=== PATIENT | female | born 1930 | race Caucasian/White ===

== ENCOUNTER → 2017-03-18 | Outpatient (CLI) | payer OTHER, BC ==
[~2017-03-18] MED LIST: ACET1TAB84 PO; ALBINS INH; ALBINS/ INH; ALBU1AER9 INH; ALEN1TAB21 PO; ASCO500T16 PO; ATOR-22 PO; CALC500C70 PO; CZR50 PO; DOXY-300 PO; EPP3/2 IM; FERRTAB PO; FEXO1TAB46 PO; FSMD/70 PO; FURO20TA PO; GUAI1TAB55 PO; HYDR-4717 PO; LEVO25TA PO; LEVOTHYROXINE PO; LNX125 PO; LOSA100T65 PO; LPR25 PO; LSX20 PO; LTMOPS OP; LVQ750 PO; METO25TA3 PO; METO50TA7 PO; MULTCAP36 PO; MULTTAB58 PO; OMEG10007 PO; POLY335025 PO; PRED10TA PO; PRLSR20 PO; SYN200 PO; TAMO20TA9 PO; TEMA15CA4 PO; TYLER650 PO; UMEC1AER INH; VNTHFA/IN INH; WARF-246 PO; WARF5TAB7 PO; WARF7.5T4 PO
--- NOTE | 2017-03-18 13:19 | MAMMOGRAPHY REPORT ---
BILATERAL DIGITAL DIAGNOSTIC MAMMOGRAM TOMOSYNTHESIS WITH CAD: 03/18/2017 CLINICAL HISTORY: 86-year-old woman with a personal history of left breast cancer status post breast conservation therapy. Also to recent benign ultrasound-guided core needle biopsies in the 12:00 an d 1:00 axes of the left breast. She presents for annual bilateral screening mammography. TECHNIQUE: Bilateral breast tomosynthesis in addition to standard 2D mammography was performed. Curr ent study was also evaluated with a Computer Aided Detection (CAD) system. COMPARISON: Comparison is made to exams dated: 09/17/2016 mammogram, 04/20/2016 ultrasound, 6 mammogram, 04/20/2016 ultrasound biopsy, 03/15/2016 mammogram, and 03/01/2015 mammogram - [facility]. BREAST COMPOSITION: The tissue of both breasts is heterogeneously dense, which may obscure small ma sses. FINDINGS: There are diffuse bilateral punctate microcalcifications in the breasts, most compatible w ith sclerosing adenosis. There are also mild to moderate vascular calcifications. There are 3 stab le biopsy marker clips in the 12:00 to 1:00 left breast, denoting prior benign biopsies. No new sueztte picious mass, architectural distortion or cluster of microcalcifications is seen bilaterally. IMPRESSION: ACR BI-RADS CATEGORY 2: BENIGN Stable mammographic appearance of the breasts including postsurgical and post biopsy changes within the left breast. There is no mammographic evidence of malignancy. A 1 year screening mammogram is r ecommended. The patient has been verbally notified of the results. Approximately 10% of breast cancers are not detected with mammography. A negative mammographic repor t should not delay biopsy if a clinically suggestive mass is present. Latonya Carey M.D. ay/:03/18/2017 12:41:04 Firearms Inspector: Yvrose DORMAN(Anne)(M), [facility] letter sent: Normal 1/2 BI-RADS Code: ACR BI-RADS Category 2: Benign
== END | disposition home or self-care (01) ==
LOC: C.MAMM 10:13
PROVIDERS: ATTEND Surgery
DX: Z08 Encounter for follow-up examination after completed treatment for malignant neoplasm (principal); Z85.3 Personal history of malignant neoplasm of breast

== ENCOUNTER → 2017-04-01 | Outpatient (CLI) | payer OTHER, BC ==
--- NOTE | 2017-04-01 11:59 | DIAGNOSTIC IMAGING REPORT ---
CHEST CT WITHOUT CONTRAST CT DOSE: 212.07 mGy.cm HISTORY: R91.8 Right lower lobe lung mass in March [id number] TECHNIQUE: Multiaxial CT images of the chest were performed without contrast. COMPARISON: Chest CT 03/26/2016. FINDINGS: Continued increase in size in the spiculated mass within the right lower lobe which measures 6.6 x 3.7 cm. This previous measured 5.7 x 3.2 cm. This contains a few small central areas of cavitation. There are few extensions to the pleura. No change within the impacted anterior segmental bronchi the right lower lobe. No pneumothorax. No pleural effusions. Moderate emphysema. There is also 12 mm mixed solid and groundglass nodule within the right lung apex on image 30. Small patchy groundglass density within the left upper lobe on image 60 which measures 1 cm. Stable 7 mm groundglass nodule within the left upper lobe on image 79. Stable metallic density within the right upper lobe. No suspicious lytic or blastic osseous lesions. Poststernotomy changes. Hepatic steatosis. The spleen and adrenal glands are unremarkable. Multiple hypodense lesions within the kidneys are again noted. 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 No mediastinal or hilar lymphadenopathy. There is an aortic valve prosthesis. The heart remains mildly enlarged. IMPRESSION: 1. Continued increase in size in the spiculated mass within the right lower lobe which measures 6.6 x 3.7 cm. This is consistent with a primary bronchogenic malignancy until proven otherwise. 2. No change in the 12 mm mixed solid and groundglass nodule within the right lung apex. This is also consistent with a primary bronchogenic malignancy. 3. Additional small nonspecific groundglass densities within the lungs as described above. These require follow-up to ensure ability. 4. Emphysema. 5. Hepatic steatosis. Electronically signed by: Tyler Cheatham M.D. 04/01/2017 11:58 AM Dictated Date/Time: 04/01/2017 11:45 AM
== END | disposition home or self-care (01) ==
LOC: C.CTS 10:40
PROVIDERS: ATTEND Internal Medicine Pulmonary Disease
DX: R91.8 Other nonspecific abnormal finding of lung field (principal)

== ENCOUNTER 2017-05-24 11:11 | Inpatient (IN) | payer OTHER, BC ==
[~2017-05-24] VITALS: Ht 167.6 cm; Wt 68.0 kg
[2017-05-24] VITALS (7 sets, daily range): BP systolic 107–156; BP diastolic 53–85; PULSE 69–80; TEMP 37.3–37.7; O2SAT 92–94; Ht 167.6 cm; Wt 68.0 kg
[~2017-05-24 11:11] MED LIST changes: -ALBINS/ INH; -ALEN1TAB21 PO; -CZR50 PO; -DOXY-300 PO; -FURO20TA PO; -LEVO25TA PO; -LPR25 PO; -LTMOPS OP; -METO50TA7 PO; -PRED10TA PO; -SYN200 PO; +TAMO20TA47 PO; -TAMO20TA9 PO; -VNTHFA/IN INH; -WARF-246 PO; -WARF7.5T4 PO
[2017-05-24] MEDS ORDERED: SODIUM CHLORIDE 0.9% 1000ML 1,000 ML IV STA (12:27)
[2017-05-24] MEDS ORDERED: ONDANSETRON INJ 2 MG/ML 2 ML VIAL IV STA (12:27)
[2017-05-24] MEDS ORDERED: FENTANYL CITRATE INJ 50 MCG/1 ML 2 ML VIAL IV STA (12:27)
[2017-05-24 12:36] LABS: BASO % 0.4 %; BASO ABS # 0.03 K/uL (0-0.2); COMPLETE YES; EOS % 2.6 %; HEMATOCRIT 43.1 % (37-47); IG% 0.1 %; LYMPH % 13.4 %; LYMPH ABS # 0.99 K/uL (1.2-3.4); MEAN CORPUSCULAR HEMOGLOBIN 33.4 pg (25-34); MEAN CORPUSCULAR HGB CONC 34.1 g/dl (32-36); MEAN PLATELET VOLUME 10.7 fL (7.4-10.4); MONO % 9.1 %; NEUT % 74.4 %; PLATELET COUNT 157 K/uL (130-400); WHITE BLOOD COUNT 7.38 K/uL (4.8-10.8)
--- NOTE | 2017-05-24 12:43 | EMERGENCY ROOM VISIT NOTE ---
History Report prepared by Lon: Agatha Castro Under the Supervision of: Dr. Jyotsna Jimenez M.D. First contact with patient: 12:05 Chief Complaint: NEURO SYMPTOMS Stated Complaint: HEADACHE, EVENT, NOT SEEING WELL Nursing Triage Summary: PT stated that she went to bed with a headache last evening. The headache kept the pt awake throught out the night. When the pt got out of bed she had a hard time seeing. Pt states that the pain is behind her right eye. Pt does have a history of macular degeneration which she is treated for. Pt has had a previous stroke and Afib. Pts blood pressure was elevated this morning which is not normal for her. History of Present Illness The patient is a 86 year old female who presents to the Emergency Room with complaints of a resolved episode of disorientation occurring this morning. The patient went to bed last night with a severe frontal headache. This morning, the headache moved to behind her right eye. When she woke up this morning, she was unable to see and orient herself. She was unable to identify how much time had passed, the time of the onset of her episode, and the duration of the episode. The patient hit her life alert button. The patient's family member was called around 8:30 am this morning. Her blood pressure this morning was 163/91 with a heart rate of 80 beats per minute. When her blood pressure was checked again prior to arrival, it was elevated. The patient currently continues to complain of a mild headache behind her right eye but denies any disorientation. She reports the severity of her headache has reduced. She has an appointment with her swager operator scheduled for May 27. She denies any history of similar symptoms. She denies any recent head trauma/injuries, vomiting, or any other complaints. She has a history of stroke, A-Fib, and valve replacement. She is currently on Coumadin. Source of History: patient Onset: this morning Position: other (global) Quality: other (episode of disorientation) Timing: resolved Associated Symptoms: + headache, No vomiting Review of Systems See HPI for pertinent positives & negatives. A total of 10 systems reviewed and were otherwise negative. 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) (4) Breast cancer (5) CVA (cerebral vascular accident) (6) Diastolic CHF (7) Dyslipidemia (8) Hypothyroidism (9) Lung mass (10) Macular degeneration (11) Osteoarthritis (12) Restrictive airway disease (13) TIA (transient ischemic attack) Surgical Problems: (1) H/O spinal fusion (2) Status post aortic valve replacement with prosthetic valve (3) Status post appendectomy (4) Status post cataract extraction (5) Status post partial mastectomy Family History FH: cancer FH: heart disease Hypertension Social History Smoking Status: Former Smoker Alcohol Use: none Drug Use: none Marital Status: single, Housing Status: lives alone Occupation Status: retired Current/Historical Medications Scheduled Albuterol Sulf (Proventil 0.083% 2.5MG/3ML), 2.5 MG INH BID Alendronate Sodium (Alendronate Sodium), 1 TAB PO WK Ascorbic Acid (Ascorbic Acid), 500 MG PO QAM Atorvastatin (Lipitor), 30 MG PO QPM Calcium/Vitamin D (Os-Dima 500 Plus D), 2 TAB PO DAILYBL Digoxin (Digoxin), 1 TAB PO DAILY Doxycycline (Monohydrate) (Doxycycline), 1 CAP PO BID Epinephrine (Epipen), 0.3 MG IM UD Ferrous Fumarate-Folic Acid (Hematinic/Folic Acid), 1 TAB PO DAILY Fexofenadine Hcl (Allison), 180 MG PO QAM Fish Oil ([place]-3), 1 CAP PO BID@1200,2100 Furosemide (Lasix), 20 MG PO DAILY Hydralazine Hcl (Apresoline), 50 MG PO TID Levothyroxine Sodium (Synthroid), 25 MCG PO DAILYBB Levothyroxine Sodium (Synthroid), 1 TAB PO DAILYBB Losartan Potassium (Cozaar), 100 MG PO QAM Loteprednol Etabonate (Lotemax), 1 DROPS OP BID Metoprolol Succ (Toprol Xl) (Toprol-Xl), 50 MG PO BID Multiple Vitamin (Multivitamin), 1 TAB PO QAM Multiple Vitamins W/ Minerals (Preservision/Lutein), 1 CAP PO DAILY Omeprazole (Prilosec), 20 MG PO QAM Prednisone Tab (Prednisone), 10 MG PO UD Umeclidinium-Vilanterol (Anoro Ellipta 62.5-25 Mcg/INH), 1 PUFF INH QAM Warfarin Sod (Jantoven), 5 MG PO UD Warfarin Sod (Jantoven), 7.5 MG PO UD Scheduled PRN Acetaminophen (Tylenol Arthritis Ext Rel), 1,300 MG PO Q8 PRN for Pain Albuterol Hfa (Ventolin Hfa), 2 PUFFS INH Q6H PRN for SOB/Wheezing Guaifenesin Ext Rel (Mucinex Ext Rel), 600 MG PO Q4 PRN for Cough Polyethylene Glycol 3350 (Miralax), 1 TBS PO DAILY PRN for Severe Constipation Temazepam (Restoril), 15-30 MG PO HS PRN for Insomnia Allergies Coded Allergies: BEE STING (Verified Allergy, Intermediate, rash and site/generalized swelling, 05/24/17) Iodinated Contrast Media (Verified Allergy, Intermediate, increased blood pressure, 05/24/17) Meperidine (Verified Allergy, Intermediate, Hallucinations, 05/24/17) Adhesives (Verified Allergy, Mild, RASH, 05/24/17) Amlodipine (Verified Allergy, Mild, unknown, 05/24/17) Azithromycin (Verified Allergy, Mild, counteraction with breathing medication, 11/10/16) Cephalosporins (Verified Allergy, Mild, unknown, 05/24/17) Fluvastatin (Verified Allergy, Mild, severe myalgias, 05/24/17) Simvastatin (Verified Allergy, Mild, Muscle Aches, 05/24/17) Tetanus Toxoid (Verified Allergy, Mild, generalized swelling and rash, ) Cephalexin (Verified Allergy, Unknown, unknown, 05/24/17) Penicillins (Verified Allergy, Unknown, RASH WITH WELTS, 05/24/17) Sulfa Drugs (Verified Allergy, Unknown, RASH, 05/24/17) Zolpidem (Verified Adverse Reaction, Severe, Severe confusion and disorientation, 05/24/17) Prednisone (Unverified Adverse Reaction, Unknown, sensitive side effects - try not to use, 05/24/17) Physical Exam Vital Signs Date Time Temp Pulse Resp B/P (MAP) Pulse Ox O2 Delivery O2 Flow Rate FiO2 05/24/17 15:44 83 20 153/75 94 Room Air 05/24/17 13:42 77 18 172/84 94 Room Air 05/24/17 12:21 84 05/24/17 11:16 36.9 72 22 184/84 94 Room Air Physical Exam Vital signs reviewed. General: Elderly well-appearing, neurologically intact, in no significant distress. HEENT: No scleral icterus, PERRLA, neck supple. Atraumatic. No meningeal signs. Cardiovascular: Regular rate and rhythm. Positive systolic ejection murmur. Pulmonary: Clear to auscultation bilaterally, normal work of breathing. Abdomen: Soft, nontender, nondistended, positive bowel sounds. Musculoskeletal: Atraumatic, no peripheral edema. Neurologic: Patient awake alert and oriented x 3, full strength in all 4 extremities. Cranial nerves 2 through 12 grossly intact. Skin: Warm, dry, no rash Medical Decision & Procedures ER Provider Diagnostic Interpretation: X-ray results as stated below per interpretation by me and the radiologist: CHEST ONE VIEW PORTABLE CLINICAL HISTORY: Altered mental status. Atrial fibrillation. COMPARISON STUDY: Chest CT April 01, 2017. FINDINGS: No pneumothorax or pleural effusion is present. A right lower lobe mass-like opacity is again noted. This is better depicted on prior chest CT. There are fiducial markers within the right upper lobe. Mild emphysema is noted. There is no evidence of pulmonary edema. There are median sternotomy wires. Cardiac size is at the upper limits of normal. IMPRESSION: 1. No acute cardiopulmonary findings. 2. Redemonstration of the right lower lobe mass-like opacity which is better depicted on prior chest CT and highly suggestive of primary lung malignancy. Electronically signed by: Laureano Gan M.D. 05/24/2017 12:57 PM Dictated Date/Time: 05/24/2017 12:[address] results as stated below per my review and radiologist interpretation: HEAD CT NONCONTRAST CT DOSE: 669.45 mGycm HISTORY: Headache. TECHNIQUE: Multiaxial CT images of the head were performed without the use of intravenous contrast. Automated exposure control was utilized for this study. Comparison: Head CT 11/10/2016. Findings: The paranasal sinuses and mastoid air cells are clear. The calvarium and skull base are intact. Small infarct within the right cerebellar hemisphere, unchanged. There is a new 5.9 x 4.2 cm hypodense area within the right occipital lobe. This is consistent with an acute right REFRIGERATOR ROOM CLERK territory infarct. Mild microvascular ischemic changes are again noted. There is no mass, hematoma, midline shift. Impression: Acute right REFRIGERATOR ROOM CLERK territory infarct. Electronically signed by: Tyler Cheatham M.D. 05/24/2017 1:18 PM Dictated Date/Time: 05/24/2017 1:14 PM Laboratory Results 05/24/17 12:11 Red Blood Count 4.40, Mean Corpuscular Volume 98.0, Mean Corpuscular Hemoglobin 33.4, Mean Corpuscular Hemoglobin Concent 34.1, Mean Platelet Volume 10.7, Neutrophils (%) (Auto) 74.4, Lymphocytes (%) (Auto) 13.4, Monocytes (%) (Auto) 9.1, Eosinophils (%) (Auto) 2.6, Basophils (%) (Auto) 0.4, Neutrophils # (Auto) 5.49, Lymphocytes # (Auto) 0.99, Monocytes # (Auto) 0.67, Eosinophils # (Auto) 0.19, Basophils # (Auto) 0.03 05/24/17 12:11 Test 05/24/17 12:11 White Blood Count 7.38 K/uL (4.8-10.8) Red Blood Count 4.40 M/uL (4.2-5.4) Hemoglobin 14.7 g/dL (12.0-16.0) Hematocrit 43.1 % (37-47) Mean Corpuscular Volume 98.0 fL (80-100) Mean Corpuscular Hemoglobin 33.4 pg (25-34) Mean Corpuscular Hemoglobin Concent 34.1 g/dl (32-36) Platelet Count 157 K/uL (130-400) Mean Platelet Volume 10.7 fL (7.4-10.4) Neutrophils (%) (Auto) 74.4 % Lymphocytes (%) (Auto) 13.4 % Monocytes (%) (Auto) 9.1 % Eosinophils (%) (Auto) 2.6 % Basophils (%) (Auto) 0.4 % Neutrophils # (Auto) 5.49 K/uL (1.4-6.5) Lymphocytes # (Auto) 0.99 K/uL (1.2-3.4) Monocytes # (Auto) 0.67 K/uL (0.11-0.59) Eosinophils # (Auto) 0.19 K/uL (0-0.5) Basophils # (Auto) 0.03 K/uL (0-0.2) RDW Standard Deviation 43.9 fL (36.4-46.3) RDW Coefficient of Variation 12.3 % (11.5-14.5) Immature Granulocyte % (Auto) 0.1 % Immature Granulocyte # (Auto) 0.01 K/uL (0.00-0.02) Prothrombin Time 24.1 SECONDS (9.0-12.0) Prothromb Time International Ratio 2.2 (0.9-1.1) Activated Partial Thromboplast Time 36.6 SECONDS (21.0-31.0) Partial Thromboplastin Ratio 1.4 Anion Gap 6.0 mmol/L (3-11) Est Creatinine Clear Calc Drug Dose 50.4 ml/min Estimated GFR () 83.7 Estimated GFR (Non- 72.2 BUN/Creatinine Ratio 28.7 (10-20) Calcium Level 10.1 mg/dl (8.5-10.1) Total Bilirubin 0.5 mg/dl (0.2-1) Direct Bilirubin 0.1 mg/dl (0-0.2) Aspartate Amino Transf (AST/SGOT) 39 U/L (15-37) Alanine Aminotransferase (ALT/SGPT) 43 U/L (12-78) Alkaline Phosphatase 84 U/L (45-117) Total Creatine Kinase 44 U/L (26-192) Creatine Kinase MB 1.1 ng/ml (0.5-3.6) Creatine Kinase MB Ratio 2.5 (0-3.0) Total Protein 7.0 gm/dl (6.4-8.2) Albumin 3.7 gm/dl (3.4-5.0) Laboratory results per my review. Medications Administered Medications (Trade) Dose Ordered Sig/Laura Route Start Time Stop Time Status Last Admin Dose Admin Sodium Chloride 1,000 ml @ 125 mls/hr Q8H STAT IV 05/24/17 12:27 05/24/17 20:26 05/24/17 12:45 125 MLS/HR Ondansetron HCl (Zofran Inj) 4 mg NOW STAT IV 05/24/17 12:27 05/24/17 12:30 DC 05/24/17 12:45 4 MG Lorazepam (Ativan Inj) 0.5 mg NOW ONCE IV 05/24/17 16:00 05/24/17 16:01 DC 05/24/17 16:36 0.5 MG ECG Indication: other (Episode of disorientation; headache) Rate (beats per minute): 103 Rhythm: atrial fibrillation Findings: nonspecific-ST abn, T-wave inversion (Lateral) ED Course 1205: Past medical records reviewed. The patient was evaluated in room C10. A complete history and physical examination was performed. 1227: Zofran Inj 4 mg IV, Fentanyl Inj 50 mcg IV, Sodium Chloride 1000 ml @ 125 mls/hr IV 1401: I discussed the patient's case with RHETT Copeland with [facility]. 1426: Upon reevaluation, the patient is resting comfortably. I discussed laboratory and radiographic results with her. She verbalized agreement of the treatment plan. The patient will be evaluated for further management and care. Medical Decision Medication Reconciliation: I attest that I have personally reviewed the patient' s current medication list. Blood Pressure Screening: Patient was found to have a slightly elevated blood pressure due to circumstances. I do not believe that the patient requires hypertension monitoring. Differential diagnosis: Intracranial hemorrhage, intracranial mass, migraine headache, tension headache , sinusitis, meningitis This patient was evaluated and appeared to be in no significant distress. IV access was obtained and laboratory work was drawn. The patient was placed on the textbook associate and found to be in an atrial fibrillation with nonspecific ST change. Patient's laboratory work reveals an INR of 2.2. She has had a valve replacement previously. Chest x-ray was obtained and reveals a mass which has been visualized previously. There is concern over malignancy. CT scan of the head was performed and reveals a right REFRIGERATOR ROOM CLERK territory infarct. I suspect the onset of this stroke was last evening when her headache began. This does appear to be acute. Patient seems to be fairly normal on neurologic exam at this time. She complains of a low-grade headache and has declined any pain medication at this time. IV fluids given initiated and the patient will be evaluated by the hospitalist service for further management. Consults Time Called: [id number] Consulting Physician: RHETT Copeland with [facility] Returned Call: [phone] I discussed the patient's case with RHETT Copeland with [facility]. Impression Primary Impression: Acute ischemic right posterior cerebral artery (REFRIGERATOR ROOM CLERK) stroke Scribe Attestation The scribe's documentation has been prepared under my direction and personally reviewed by me in its entirety. I confirm that the note above accurately reflects all work, treatment, procedures, and medical decision making performed by me. Departure Information Dispostion Being Evaluated By Hospitalist Referrals Triston Adame D.O. (PCP) Patient Instructions My [facility]
[2017-05-24 12:44] LABS: BUN/CREATININE RATIO 28.7 (10-20); CALCIUM 10.1 mg/dl (8.5-10.1); CREATININE 0.75 mg/dl (0.60-1.20); POTASSIUM 3.9 mmol/L (3.5-5.1)
[2017-05-24 12:46] LABS: INR 2.2 (0.9-1.1); PARTIAL THROMBOPLASTIN RATIO 1.4; PROTHROMBIN TIME (PATIENT) 24.1 SECONDS (9.0-12.0)
[2017-05-24 12:49] LABS: CKMB/CK RATIO 2.5 (0-3.0)
--- NOTE | 2017-05-24 12:58 | DIAGNOSTIC IMAGING REPORT ---
CHEST ONE VIEW PORTABLE CLINICAL HISTORY: Altered mental status. Atrial fibrillation. COMPARISON STUDY: Chest CT April 01, 2017. FINDINGS: No pneumothorax or pleural effusion is present. A right lower lobe mass-like opacity is again noted. This is better depicted on prior chest CT. There are fiducial markers within the right upper lobe. Mild emphysema is noted. There is no evidence of pulmonary edema. There are median sternotomy wires. Cardiac size is at the upper limits of normal. IMPRESSION: 1. No acute cardiopulmonary findings. 2. Redemonstration of the right lower lobe mass-like opacity which is better depicted on prior chest CT and highly suggestive of primary lung malignancy. Electronically signed by: Laureano Gan M.D. 05/24/2017 12:57 PM Dictated Date/Time: 05/24/2017 12:54 PM
--- NOTE | 2017-05-24 13:19 | DIAGNOSTIC IMAGING REPORT ---
HEAD CT NONCONTRAST CT DOSE: 669.45 mGycm HISTORY: Headache. TECHNIQUE: Multiaxial CT images of the head were performed without the use of intravenous contrast. Automated exposure control was utilized for this study. Comparison: Head CT 11/10/2016. Findings: The paranasal sinuses and mastoid air cells are clear. The calvarium and skull base are intact. Small infarct within the right cerebellar hemisphere, unchanged. There is a new 5.9 x 4.2 cm hypodense area within the right occipital lobe. This is consistent with an acute right INFORMATION ARCHITECT territory infarct. Mild microvascular ischemic changes are again noted. There is no mass, hematoma, midline shift. Impression: Acute right INFORMATION ARCHITECT territory infarct. Electronically signed by: Tyler Cheatham M.D. 05/24/2017 1:18 PM Dictated Date/Time: 05/24/2017 1:14 PM
[2017-05-24] MEDS ORDERED: LTMOPS OP (14:01)
[2017-05-24] MEDS ORDERED: LEVO25TA PO (14:01)
[2017-05-24] MEDS ORDERED: VNTHFA/IN INH (14:01)
[2017-05-24] MEDS ORDERED: DOXY-300 PO (14:01)
[2017-05-24] MEDS ORDERED: ALBINS/ INH (14:01)
[2017-05-24] MEDS ORDERED: SYN200 PO (14:01)
[2017-05-24] MEDS ORDERED: PRED10TA PO (14:01)
[2017-05-24] MEDS ORDERED: FURO20TA PO (14:01)
[2017-05-24] MEDS ORDERED: WARF-246 PO (14:01)
[2017-05-24] MEDS ORDERED: ALEN1TAB21 PO (14:01)
[2017-05-24] MEDS ORDERED: ONDANSETRON INJ 2 MG/ML 2 ML VIAL IV PRN (14:45)
[2017-05-24] MEDS ORDERED: PHARMACIST DISCHARGE MED REC CONSULT PRN (14:45)
[2017-05-24] MEDS ORDERED: WARF7.5T4 PO (15:07)
[2017-05-24] MEDS ORDERED: WARF5TAB7 PO (15:07)
[2017-05-24] MEDS ORDERED: POLYETHYLENE (MIRALAX) 17 GM PACK PO PRN (15:15)
[2017-05-24] MEDS ORDERED: LORAZEPAM 2 MG/ML 1 ML VIAL IV ONE (16:00)
[2017-05-24] MEDS: [UNRECOGNIZED DRUG - OTHER] SCH ×2 (16:00→23:35)
--- NOTE | 2017-05-24 16:43 | History and Physical ---
History & Physical Date & Time of Service: May 24, 2017 ~ 14:30 Chief Complaint: Headache, Vision Problems Primary Care Physician: Triston Adame D.O. History of Present Illness 86 year old female who presents to the ER with reports of headache and vision problems. Patient reports she went to bed last night with a frontal headache. When she woke up this morning the headache was located around her right eye. She reports the headache at it's worst was #7/10 and it currently improving. She also reports visual problems. She reports she "just couldn't see". Patient denies double vision but is unable to describe her visual disturbances further. She reports her vision has almost returned to normal. She notes poor vision at baseline due to macular degeneration. Patient denies any unilateral numbness, tingling, or weakness. She had difficulty walking but it was due to the vision disturbance. She denies lightheadedness, dizziness, or syncope. No chest pain or shortness of breath. Denies recent illnesses, fever, or chills. No abdominal pain, nausea, vomiting, or diarrhea. She denies urinary symptoms. 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 INR is 2.2. BP is somewhat hypertensive, other vitals stable. Labs unremarkable. 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 (4) Breast cancer Status: Chronic (5) CVA (cerebral vascular accident) Status: Chronic (6) Diastolic CHF Status: Chronic (7) Dyslipidemia Status: Chronic (8) Hypothyroidism Status: Chronic (9) Lung mass Permanent Comment: RLL, patient has declined further work up/treatment Status: Chronic (10) Macular degeneration Status: Chronic (11) Osteoarthritis Status: Chronic (12) Restrictive airway disease Status: Chronic (13) TIA (transient ischemic attack) Status: Chronic Surgical Problems: (1) H/O spinal fusion Status: Chronic (2) Status post aortic valve replacement with prosthetic valve Status: Chronic (3) Status post appendectomy Status: Chronic (4) Status post cataract extraction Status: Chronic (5) Status post partial mastectomy Status: Chronic Family History non contributory due to patient's age Social History Smoking Status: Former Smoker Alcohol Use: none Housing status: lives alone Immunizations History of Influenza Vaccine: Yes Influenza Vaccine Date: Aug 27, 2016 History of Pneumococcal: Yes Pneumococcal Date: May 02, 2015 Multi-Drug Resistant Organisms History of MDRO: No Allergies Coded Allergies: BEE STING (Verified Allergy, Intermediate, rash and site/generalized swelling, 05/24/17) Adhesives (Verified Allergy, Mild, RASH, 05/24/17) Amlodipine (Verified Allergy, Mild, unknown, 05/24/17) Azithromycin (Verified Allergy, Mild, counteraction with breathing medication, 11/10/16) Cephalosporins (Verified Allergy, Mild, unknown, 05/24/17) Sulfa Antibiotics (Verified Allergy, Mild, RASH, 05/24/17) Tetanus Toxoid (Verified Allergy, Mild, generalized swelling and rash, ) Cephalexin (Verified Allergy, Unknown, unknown, 05/24/17) Penicillins (Verified Allergy, Unknown, RASH WITH WELTS, 05/24/17) Fluvastatin (Verified Adverse Reaction, Intermediate, severe myalgias, ) Meperidine (Verified Adverse Reaction, Intermediate, Hallucinations, ) Zolpidem (Verified Adverse Reaction, Intermediate, Severe confusion and disorientation, 05/24/17) Simvastatin (Verified Adverse Reaction, Mild, Muscle Aches, 05/24/17) Iodinated Diagnostic Agents (Verified Adverse Reaction, Unknown, INCREASED BLOOD PRESSURE, 05/24/17) Prednisone (Verified Adverse Reaction, Unknown, sensitive side effects - try not to use, 05/24/17) Home Medications Scheduled Albuterol Sulf (Proventil 0.083% 2.5MG/3ML), 2.5 MG INH BID Alendronate Sodium (Alendronate Sodium), 1 TAB PO WK Ascorbic Acid (Ascorbic Acid), 500 MG PO QAM Atorvastatin (Lipitor), 30 MG PO QPM Calcium/Vitamin D (Os-Dima 500 Plus D), 2 TAB PO DAILYBL Digoxin (Digoxin), 1 TAB PO DAILY Doxycycline (Monohydrate) (Doxycycline), 1 CAP PO BID Epinephrine (Epipen), 0.3 MG IM UD Ferrous Fumarate-Folic Acid (Hematinic/Folic Acid), 1 TAB PO DAILY Fexofenadine Hcl (Allison), 180 MG PO QAM Fish Oil ([place]-3), 1 CAP PO BID@1200,2100 Furosemide (Lasix), 20 MG PO DAILY Hydralazine Hcl (Apresoline), 50 MG PO TID Levothyroxine Sodium (Synthroid), 25 MCG PO DAILYBB Levothyroxine Sodium (Synthroid), 1 TAB PO DAILYBB Losartan Potassium (Cozaar), 100 MG PO QAM Loteprednol Etabonate (Lotemax), 1 DROPS OP BID Metoprolol Succ (Toprol Xl) (Toprol-Xl), 50 MG PO BID Multiple Vitamin (Multivitamin), 1 TAB PO QAM Multiple Vitamins W/ Minerals (Preservision/Lutein), 1 CAP PO DAILY Omeprazole (Prilosec), 20 MG PO QAM Prednisone Tab (Prednisone), 10 MG PO UD Umeclidinium-Vilanterol (Anoro Ellipta 62.5-25 Mcg/INH), 1 PUFF INH QAM Warfarin Sod (Jantoven), 5 MG PO UD Warfarin Sod (Jantoven), 7.5 MG PO UD Scheduled PRN Acetaminophen (Tylenol Arthritis Ext Rel), 1,300 MG PO Q8 PRN for Pain Albuterol Hfa (Ventolin Hfa), 2 PUFFS INH Q6H PRN for SOB/Wheezing Guaifenesin Ext Rel (Mucinex Ext Rel), 600 MG PO Q4 PRN for Cough Polyethylene Glycol 3350 (Miralax), 1 TBS PO DAILY PRN for Severe Constipation Temazepam (Restoril), 15-30 MG PO HS PRN for Insomnia Review of Systems ROS per HPI, all other systems reviewed and negative Physical Exam Vital Signs Date Time Temp Pulse Resp B/P (MAP) Pulse Ox O2 Delivery O2 Flow Rate FiO2 05/24/17 15:44 83 20 153/75 94 Room Air 05/24/17 13:42 77 18 172/84 94 Room Air 05/24/17 12:21 84 05/24/17 11:16 36.9 72 22 184/84 94 Room Air General Appearance: no apparent distress Head: normocephalic Eyes: PERRL, + pertinent finding (decreased left peripheral vision ) ENT: hearing grossly normal Neck: supple, no JVD Respiratory/Chest: no respiratory distress, + pertinent finding (scattered faint coarse breath sounds) Cardiovascular: no edema, + irregularly irregular (rate controlled) Abdomen/GI: normal bowel sounds, non tender, soft Extremities/Musculoskelatal: normal inspection, no calf tenderness Neurologic/Psych: no motor/sensory deficits, alert, normal mood/affect, oriented x 3 Skin: normal color, warm/dry Diagnostics Laboratory Results Results Past 24 Hours Test 05/24/17 12:11 Range/Units White Blood Count 7.38 4.8-10.8 K/uL Red Blood Count 4.40 4.2-5.4 M/uL Hemoglobin 14.7 12.0-16.0 g/dL Hematocrit 43.1 37-47 % Mean Corpuscular Volume 98.0 80-100 fL Mean Corpuscular Hemoglobin 33.4 25-34 pg Mean Corpuscular Hemoglobin Concent 34.1 32-36 g/dl Platelet Count 157 130-400 K/uL Mean Platelet Volume 10.7 7.4-10.4 fL Neutrophils (%) (Auto) 74.4 % Lymphocytes (%) (Auto) 13.4 % Monocytes (%) (Auto) 9.1 % Eosinophils (%) (Auto) 2.6 % Basophils (%) (Auto) 0.4 % Neutrophils # (Auto) 5.49 1.4-6.5 K/uL Lymphocytes # (Auto) 0.99 1.2-3.4 K/uL Monocytes # (Auto) 0.67 0.11-0.59 K/uL Eosinophils # (Auto) 0.19 0-0.5 K/uL Basophils # (Auto) 0.03 0-0.2 K/uL RDW Standard Deviation 43.9 36.4-46.3 fL RDW Coefficient of Variation 12.3 11.5-14.5 % Immature Granulocyte % (Auto) 0.1 % Immature Granulocyte # (Auto) 0.01 0.00-0.02 K/uL Prothrombin Time 24.1 9.0-12.0 SECONDS Prothromb Time International Ratio 2.2 0.9-1.1 Activated Partial Thromboplast Time 36.6 21.0-31.0 SECONDS Partial Thromboplastin Ratio 1.4 Sodium Level 139 136-145 mmol/L Potassium Level 3.9 3.5-5.1 mmol/L Chloride Level 105 98-107 mmol/L Carbon Dioxide Level 28 21-32 mmol/L Anion Gap 6.0 3-11 mmol/L Blood Urea Nitrogen 22 7-18 mg/dl Creatinine 0.75 0.60-1.20 mg/dl Est Creatinine Clear Calc Drug Dose 50.4 ml/min Estimated GFR () 83.7 Estimated GFR (Non- 72.2 BUN/Creatinine Ratio 28.7 10-20 Random Glucose 96 70-99 mg/dl Calcium Level 10.1 8.5-10.1 mg/dl Total Bilirubin 0.5 0.2-1 mg/dl Direct Bilirubin 0.1 0-0.2 mg/dl Aspartate Amino Transf (AST/SGOT) 39 15-37 U/L Alanine Aminotransferase (ALT/SGPT) 43 12-78 U/L Alkaline Phosphatase 84 45-117 U/L Total Creatine Kinase 44 26-192 U/L Creatine Kinase MB 1.1 0.5-3.6 ng/ml Creatine Kinase MB Ratio 2.5 0-3.0 Total Protein 7.0 6.4-8.2 gm/dl Albumin 3.7 3.4-5.0 gm/dl Diagnostic Radiology CT Head Impression: Acute right TABLET MACHINE OPERATOR territory infarct. CXR IMPRESSION: 1. No acute cardiopulmonary findings. 2. Redemonstration of the right lower lobe mass-like opacity which is better depicted on prior chest CT and highly suggestive of primary lung malignancy. 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 Yanes - due to risk of conversion to hemorrhagic CVA , will hold on bridging with heparin and starting aspirin or Plavix at this time - continue Coumadin, check INR in AM - echo to evaluate for thrombus - brain MRI/MRA, neck MRA - neuro checks - permissive HTN ATRIAL FIBRILLATION, MECHANICAL AORTIC VALVE - rate controlled on metoprolol and dig - continue both but with holding parameters in place for metoprolol to allow for permissive HTN - Coumadin as above HTN - allowing for permissive HTN due to acute CVA - continuing metoprolol, losartan, and hydralazine with holding parameters in place DIASTOLIC CHF - appears euvolemic, continue furosemide RESTRICTIVE AIRWAY DISEASE - no signs of acute exacerbation - continue home inhalers HYPOTHYROIDISM - continue levothyroxine DVT PROPHYLAXIS - on Coumadin with INR > 2.0 CODE STATUS - Patient is a full code as per my discussion with her. DISPO - In my clinical judgment this beneficiary meets acute admission criteria, established by [facility], that includes being hospitalized through two midnights. - Expect d/c home once medically stable Level of Care Telemetry Resuscitation Status FULL RESUSCITATION VTE Prophylaxis VTE Risk Assessment Done? Y/N: Yes Risk Level: Moderate Given or contraindicated: Warfarin (Coumadin) Social Service Consult >80 yr.& Lives Alone Note ATTENDING ADDENDUM Record reviewed. Patient interviewed and examined. Care coordinated with RHETT Copeland. Please refer to her documentation for patient's history. Briefly, 86 YO female with history of atrial fibrillation and AVR on warfarin. Developed headache and visual changes last night / this morning. Came to ED for evaluation. Comfortable at time of my assessment. EXAM: General- no acute distress VS- as noted HEENT- anicteric Neck- Lungs- clear Heart- irregular, II/ sys murmur at base Abdomen- + BS, soft, nontender Extremities- trace pretibial edema, no calf tenderness Neuro- alert, mild confusion; PERRL, EOMI; vision impaired, difficult to achieve accurate visual field testing; no dysarthria or facial palsy; tongue midline; motor strength upper and lower extremities essentially 5/5; plantar reflexes downgoing; no significant difficulty with finger to nose or heel to muñoz testing DATA: INR 2.2. 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 ASSESSMENT AND PLAN: Acute right TABLET MACHINE OPERATOR infarct. Underlying chronic AF and AVR. TPA not indicated due to duration of symptoms + warfarin therapy. Continue warfarin. Consult Neuro. Son and daughter visiting and given update. Please refer to FABIO Frank's documentation for discussion of other issues. Tello Cary MD .
[2017-05-24] MEDS ORDERED: GADAVIST IV PRN (17:45)
--- NOTE | 2017-05-24 17:47 | DIAGNOSTIC IMAGING REPORT ---
MR ANGIOGRAM OF THE BRAIN CLINICAL HISTORY: Stroke. Headache and blurry vision. COMPARISON STUDY: CT brain dated 05/24/2017. TECHNIQUE: 3-D [id number] MR angiography of the intracranial circulation is performed. 3-D tumble views are created and assessed. IV contrast was not administered for this examination. The Examination is degraded by motion artifact. FINDINGS: The internal carotid arteries are widely patent bilaterally, as are the anterior and middle cerebral arteries. The right vertebral artery, the basilar artery, and posterior cerebral arteries are widely patent. The right vertebral artery is dominant. The left vertebral artery is not well visualized. 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 No additional aneurysm is seen. There is no high-grade stenosis or focal vessel cutoff seen throughout the intracranial circulation. IMPRESSION: 1. The left vertebral artery is diminutive versus occluded. A diminutive vessel is favored and the right vertebral artery is dominant. 2. The remaining intracranial vessels at the skull base are widely patent. 3. 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 No additional aneurysm is seen. Electronically signed by: Rajan Swain M.D. 05/24/2017 5:46 PM Dictated Date/Time: 05/24/2017 5:38 PM
--- NOTE | 2017-05-24 18:09 | DIAGNOSTIC IMAGING REPORT ---
MR ANGIOGRAM OF THE NECK COMBO CLINICAL HISTORY: Stroke. Headache and blurry vision. COMPARISON STUDY: Carotid artery ultrasound dated 11/16/2008. TECHNIQUE: Axial 3-D [id number] MR angiography of the neck is performed. Subsequently, following the IV administration of 7 cc of Gadavist. Coronal MR angiogram of the neck was performed to corroborate the findings. 3-D reformats are created and assessed. Subtraction imaging was utilized. All measurements were calculated based on NASCET criteria. FINDINGS: Visualized portions of the thoracic aorta are normal in caliber. The aortic arch demonstrates standard 3-vessel anatomy. The subclavian arteries are widely patent bilaterally noting nonvisualization of the proximal left subclavian artery. The right common carotid artery is widely patent, as are the right internal and external carotid arteries. The left common carotid artery is widely patent, as are the left internal and external carotid arteries. The right vertebral artery is dominant and widely patent. The left vertebral artery is not visualized. The visualized intracranial vessels at the skull base appear patent. See report of MR angiogram of the brain performed concurrently for detailed intracranial findings. The jugular veins are clear. IMPRESSION: 1. The carotid arterial system is widely patent bilaterally. 2. The right vertebral artery is widely patent and dominant. 3. The left vertebral artery is not identified and likely diminutive versus occluded. The left vertebral artery was also not well visualized on the 2007 ultrasound. Electronically signed by: Rajan Swain M.D. 05/24/2017 6:08 PM Dictated Date/Time: 05/24/2017 6:02 PM
--- NOTE | 2017-05-24 19:21 | DIAGNOSTIC IMAGING REPORT ---
MRI OF THE BRAIN COMBO CLINICAL HISTORY: Stroke. Headache and blurry vision. COMPARISON STUDY: CT of the brain dated 05/24/2017. TECHNIQUE: MRI of the brain was performed utilizing various T1 and T2-weighted sequences in the axial, sagittal, and coronal planes. Contrast-enhanced sequences were acquired following the administration of 7 cc of Gadavist. Examination is modestly degraded by motion artifact. Images are included under the MR angiogram of the neck examination. 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 There is associated edema. Chronic lacunar infarcts are identified within both cerebellar hemispheres. There is no hemorrhage or midline shift. No additional foci of restricted diffusion are identified. No enhancing mass lesion is identified on the postcontrast images. No extra-axial fluid collection is seen. There is moderate patchy subcortical and periventricular microangiopathic disease. The cerebellar tonsils are normal in configuration. Ventricles, sulci, and cisterns: Prominent secondary to involutional change. Pituitary and sella: Unremarkable. Intracranial vasculature: Normal flow voids are maintained in the right vertebral artery and the carotid arteries at the skull base. See report of MR angiography of the brain performed concurrently for detailed vascular findings. Orbits: The bony orbits are grossly intact. Orbital contents are normal in appearance noting bilateral ocular lens implants. Sinuses and mastoids: Clear. Calvarium: Unremarkable. Cervical cord: Partially visualized cervical spinal cord is normal in morphology and signal intensity. IMPRESSION: 1. There is an acute to subacute right TAPE FASTENER MACHINE OPERATOR territory infarct. This corresponds to the abnormality seen by CT. 2. No additional foci of acute ischemia are identified. There is no hemorrhage or midline shift. Electronically signed by: Rajan Swain M.D. 05/24/2017 7:20 PM Dictated Date/Time: 05/24/2017 7:14 PM
[2017-05-24] MEDS: ALBUTEROL 0.083% NEBU SOLN 3 ML VIAL INH SCH (19:30)
[2017-05-24] MEDS ORDERED: LOTEPREDNOL ETABONATE OP SCH (21:00)
[2017-05-24] MEDS ORDERED: METOPROLOL SUCC 50MG EXT REL TAB PO SCH (21:00)
[2017-05-24] MEDS ORDERED: WARFARIN SOD 7.5 MG TAB PO SCH (21:00)
[2017-05-24] MEDS: DIGOXIN 0.125 MG TAB PO SCH (21:47)
[2017-05-24] MEDS: ATORVASTATIN 20 MG TAB PO SCH (21:50)
[2017-05-24] MEDS: OMEGA-3 (PURIFIED FISH OIL) 1 GM CAP PO SCH (21:51)
[2017-05-24] MEDS: ACETAMINOPHEN 325 MG TAB PO PRN (22:04)
[2017-05-25] VITALS (10 sets, daily range): BP systolic 122–174; BP diastolic 60–97; PULSE 54–83; TEMP 36.3–37.1; O2SAT 91–98
--- NOTE | 2017-05-25 04:40 | Progress Note ---
Internal Med Progress Note Date of Service: May 25, 2017. Provider Documentation: Made aware by RN of episodic bradycardia, sinus pauses during sleep. CR 30-50s. AP Asymptomatic, episodic bradycardia borderline SSS (may eventually require PPM) as per outpx Cardio records decrease maintenance Toprol XL from 50mg BID to 12.5 mg daily for now. Will relay to AM provider. Vital Signs: Date Time Temp Pulse Resp B/P (MAP) Pulse Ox O2 Delivery O2 Flow Rate FiO2 05/25/17 07:31 36.7 54 18 133/78 (96) 98 05/25/17 07:12 69 16 96 Nasal Cannula 3.0 05/25/17 04:00 95 Nasal Cannula 3.0 05/25/17 03:35 37.1 64 20 138/60 (86) 95 Nasal Cannula 3.0 05/24/17 23:59 94 Nasal Cannula 3.0 05/24/17 23:20 37.7 73 18 107/53 (71) 94 Nasal Cannula 3.0 05/24/17 21:52 76 120/67 (84) 05/24/17 21:47 76 05/24/17 20:00 37.3 69 22 156/85 92 Room Air 05/24/17 20:00 92 Room Air 05/24/17 19:36 80 16 92 Room Air 05/24/17 19:30 92 Room Air 05/24/17 19:05 37.3 69 22 156/85 (108) 92 Room Air 05/24/17 15:44 83 20 153/75 94 Room Air 05/24/17 13:42 77 18 172/84 94 Room Air 05/24/17 12:21 84 05/24/17 11:16 36.9 72 22 184/84 94 Room Air Lab Results: Results Past 24 Hours Test 05/24/17 12:11 05/25/17 06:15 Range/Units White Blood Count 7.38 5.29 4.8-10.8 K/uL Red Blood Count 4.40 4.08 4.2-5.4 M/uL Hemoglobin 14.7 13.7 12.0-16.0 g/dL Hematocrit 43.1 39.8 37-47 % Mean Corpuscular Volume 98.0 97.5 80-100 fL Mean Corpuscular Hemoglobin 33.4 33.6 25-34 pg Mean Corpuscular Hemoglobin Concent 34.1 34.4 32-36 g/dl Platelet Count 157 156 130-400 K/uL Mean Platelet Volume 10.7 10.2 7.4-10.4 fL Neutrophils (%) (Auto) 74.4 67.9 % Lymphocytes (%) (Auto) 13.4 20.2 % Monocytes (%) (Auto) 9.1 8.7 % Eosinophils (%) (Auto) 2.6 2.6 % Basophils (%) (Auto) 0.4 0.6 % Neutrophils # (Auto) 5.49 3.59 1.4-6.5 K/uL Lymphocytes # (Auto) 0.99 1.07 1.2-3.4 K/uL Monocytes # (Auto) 0.67 0.46 0.11-0.59 K/uL Eosinophils # (Auto) 0.19 0.14 0-0.5 K/uL Basophils # (Auto) 0.03 0.03 0-0.2 K/uL RDW Standard Deviation 43.9 43.0 36.4-46.3 fL RDW Coefficient of Variation 12.3 12.0 11.5-14.5 % Immature Granulocyte % (Auto) 0.1 0.0 % Immature Granulocyte # (Auto) 0.01 0.00 0.00-0.02 K/uL Prothrombin Time 24.1 19.7 9.0-12.0 SECONDS Prothromb Time International Ratio 2.2 1.8 0.9-1.1 Activated Partial Thromboplast Time 36.6 21.0-31.0 SECONDS Partial Thromboplastin Ratio 1.4 Sodium Level 139 139 136-145 mmol/L Potassium Level 3.9 4.2 3.5-5.1 mmol/L Chloride Level 105 106 98-107 mmol/L Carbon Dioxide Level 28 27 21-32 mmol/L Anion Gap 6.0 6.0 3-11 mmol/L Blood Urea Nitrogen 22 17 7-18 mg/dl Creatinine 0.75 0.78 0.60-1.20 mg/dl Est Creatinine Clear Calc Drug Dose 50.4 48.4 ml/min Estimated GFR () 83.7 79.8 Estimated GFR (Non- 72.2 68.8 BUN/Creatinine Ratio 28.7 21.8 10-20 Random Glucose 96 95 70-99 mg/dl Estimated Average Glucose 105 mg/dl Hemoglobin A1c 5.3 4.5-5.6 % Calcium Level 10.1 9.6 8.5-10.1 mg/dl Total Bilirubin 0.5 0.2-1 mg/dl Direct Bilirubin 0.1 0-0.2 mg/dl Aspartate Amino Transf (AST/SGOT) 39 15-37 U/L Alanine Aminotransferase (ALT/SGPT) 43 12-78 U/L Alkaline Phosphatase 84 45-117 U/L Total Creatine Kinase 44 26-192 U/L Creatine Kinase MB 1.1 0.5-3.6 ng/ml Creatine Kinase MB Ratio 2.5 0-3.0 Total Protein 7.0 6.4-8.2 gm/dl Albumin 3.7 3.4-5.0 gm/dl Magnesium Level 2.4 1.8-2.4 mg/dl Triglycerides Level 281 0-150 mg/dl Cholesterol Level 142 0-200 mg/dl HDL Cholesterol 27 mg/dl LDL Cholesterol, Calculated 59 mg/dl VLDL Cholesterol, Calculated 56 mg/dl Cholesterol/HDL Ratio 5.3 Thyroid Stimulating Hormone (TSH) 0.223 0.300-4.500 uIu/ml Digoxin Level 1.2 0.8-2.0 ng/ml
[2017-05-25] MEDS: LEVOTHYROXINE 200 MCG TAB PO SCH (06:00)
[2017-05-25] MEDS: LEVOTHYROXINE 25 MCG TAB PO SCH (06:00)
[2017-05-25 06:07] LABS: ESTIMATED AVERAGE GLUCOSE 105 mg/dl; HA1C FLAG Normal (Normal)
[2017-05-25 06:30] LABS: BASO % 0.6 %; BASO ABS # 0.03 K/uL (0-0.2); COMPLETE YES; EOS % 2.6 %; HEMATOCRIT 39.8 % (37-47); LYMPH % 20.2 %; LYMPH ABS # 1.07 K/uL (1.2-3.4); MEAN CELL VOLUME 97.5 fL (80-100); MEAN CORPUSCULAR HEMOGLOBIN 33.6 pg (25-34); MEAN CORPUSCULAR HGB CONC 34.4 g/dl (32-36); MEAN PLATELET VOLUME 10.2 fL (7.4-10.4); MONO % 8.7 %; NEUT % 67.9 %; PLATELET COUNT 156 K/uL (130-400); RED BLOOD COUNT 4.08 M/uL (4.2-5.4); WHITE BLOOD COUNT 5.29 K/uL (4.8-10.8)
[2017-05-25 06:36] LABS: INR 1.8 (0.9-1.1); PROTHROMBIN TIME (PATIENT) 19.7 SECONDS (9.0-12.0)
[2017-05-25 07:04] LABS: BUN/CREATININE RATIO 21.8 (10-20); CALCIUM 9.6 mg/dl (8.5-10.1); CREATININE 0.78 mg/dl (0.60-1.20); MAGNESIUM 2.4 mg/dl (1.8-2.4); POTASSIUM 4.2 mmol/L (3.5-5.1)
[2017-05-25] MEDS: ALBUTEROL 0.083% NEBU SOLN 3 ML VIAL INH SCH ×2 (07:12→18:59)
[2017-05-25 07:15] LABS: CHOLESTEROL/HDL RATIO 5.3; THYROID STIMULATING HORMONE 0.223 uIu/ml (0.300-4.500)
[2017-05-25] MEDS: [UNRECOGNIZED DRUG - OTHER] SCH ×3 (07:43→22:08)
[2017-05-25] MEDS: METOPROLOL SUCC 25MG EXT REL TAB PO SCH (07:44)
[2017-05-25] MEDS: MULTIVITAMIN TAB PO SCH (08:12)
[2017-05-25] MEDS: PANTOprazole SOD 40 MG TAB PO SCH (08:13)
[2017-05-25] MEDS: FUROSEMIDE 20 MG TAB PO SCH (08:13)
[2017-05-25] MEDS: ASCORBIC ACID 500 MG TAB PO SCH (08:13)
[2017-05-25] MEDS: CALCIUM 600MG + VIT D 400 IU TAB PO SCH (08:13)
[2017-05-25] MEDS: LOSARTAN POTASSIUM 50 MG TAB PO SCH (08:14)
[2017-05-25] MEDS: FEXOFENADINE HCL 180 MG TAB PO SCH (08:14)
[2017-05-25] MEDS: OMEGA-3 (PURIFIED FISH OIL) 1 GM CAP PO SCH ×2 (08:14→19:46)
[2017-05-25] MEDS: CEROVITE ADV FORMULA TAB PO SCH (08:15)
[2017-05-25] MEDS ORDERED: [UNRECOGNIZED DRUG - OTHER] PO SCH (09:00)
--- NOTE | 2017-05-25 11:00 | Neurology Consultation ---
Neurology Consultation Date of Consultation: May 25, 2017. Attending Physician: Tello Cary M.D. Primary Care Physician: Triston Adame D.OBertha Reason for Consultation: cva History of Present Illness Source: patient Alina is 86 and is a patient of Dr Adame and has seen cardiology in the past as well She has atrial fibrillation on coumadin and is post mechanical aortic valve replacement in 1995. Other medical problems are as outlined below. In this setting she developed an acute right retroorbital headache yesterday and noted a worsening of her vision ( already impaired by macular degeneration ) that initially she had difficulty defining but now clearly involves he left visual field The pain is now lessened significantly. There were no other symptoms of note specifically no vertigo, dysarthria, dysphagia, paresthesias, weakness or significant gait disturbance an no loss or alteration of consciousness. For details I refer to the admission note from Haydee Frank with whom I discussed the case yesterday afternoon. Past Medical/Surgical History Medical Problems: (1) Confusion Status: Acute (2) Hypoxia Status: Acute (3) Pneumonia Status: Acute Chronic problems include the atrial fibrillation, the aortic valve replacement , dyslipidema , breast ca, a llung mass, BOOP, a prior cva hypothyroidism, macular degeneration, and surgically she has had iol replacements, aortic valve replacement , a lumbar spinal fusion, an appendectomy Family History noncontributary Social History nonsmoker and currently non consumer of etoh Smoking Status: Never smoker Alcohol Use: none Housing Status: lives alone Allergies Coded Allergies: BEE STING (Verified Allergy, Intermediate, rash and site/generalized swelling, 05/24/17) Adhesives (Verified Allergy, Mild, RASH, 05/24/17) Amlodipine (Verified Allergy, Mild, unknown, 05/24/17) Azithromycin (Verified Allergy, Mild, counteraction with breathing medication, 11/10/16) Cephalosporins (Verified Allergy, Mild, unknown, 05/24/17) Sulfa Antibiotics (Verified Allergy, Mild, RASH, 05/24/17) Tetanus Toxoid (Verified Allergy, Mild, generalized swelling and rash, ) Cephalexin (Verified Allergy, Unknown, unknown, 05/24/17) Penicillins (Verified Allergy, Unknown, RASH WITH WELTS, 05/24/17) Fluvastatin (Verified Adverse Reaction, Intermediate, severe myalgias, ) Meperidine (Verified Adverse Reaction, Intermediate, Hallucinations, ) Zolpidem (Verified Adverse Reaction, Intermediate, Severe confusion and disorientation, 05/24/17) Simvastatin (Verified Adverse Reaction, Mild, Muscle Aches, 05/24/17) Iodinated Diagnostic Agents (Verified Adverse Reaction, Unknown, INCREASED BLOOD PRESSURE, 05/24/17) Prednisone (Verified Adverse Reaction, Unknown, sensitive side effects - try not to use, 05/24/17) Current Inpatient Medications Current Inpatient Medications Medications (Trade) Dose Ordered Sig/Laura Route Start Time Stop Time Status Last Admin Dose Admin Acetaminophen (Tylenol Tab) 650 mg Q4H PRN PO 05/24/17 14:45 06/23/17 14:44 05/24/17 22:04 650 MG Ondansetron HCl (Zofran Inj) 4 mg Q6H PRN IV 05/24/17 14:45 06/23/17 14:44 Miscellaneous Information (Pharmacist Discharge Med Rec Consult) 1 ea UD PRN N/A 05/24/17 14:45 06/23/17 14:44 Albuterol Sulfate (Ventolin 0.083% 2.5MG/3ML Neb) 2.5 mg BIDR INH 05/24/17 20:00 06/23/17 20:59 05/25/17 07:12 2.5 MG Ascorbic Acid (Vitamin C Tab) 500 mg QAM PO 05/25/17 09:00 06/24/17 08:59 05/25/17 08:13 500 MG Atorvastatin Calcium (Lipitor Tab) 30 mg QPM PO 05/24/17 21:00 06/23/17 20:59 05/24/17 21:50 30 MG Calcium/Vitamin D (Caltrate Plus Tab) 2 tab DAILYBL PO 05/25/17 11:00 06/24/17 10:59 05/25/17 08:13 2 TAB Digoxin (Lanoxin Tab) 0.125 mg DAILY@1600 PO 05/24/17 16:00 06/23/17 15:59 05/24/17 21:47 0.125 MG Fexofenadine HCl (Allison Tab) 180 mg QAM PO 05/25/17 09:00 06/24/17 08:59 05/25/17 08:14 180 MG Fish Oil ([place]-3 (Purified Fish Oil) Cap) 1 gm BID@1200,2100 PO 05/24/17 21:00 06/23/17 20:59 05/25/17 08:14 1 GM Furosemide (Lasix Tab) 20 mg DAILY PO 05/25/17 09:00 06/24/17 08:59 05/25/17 08:13 20 MG Hydralazine HCl (Apresoline Tab) 50 mg TID PO 05/24/17 21:00 06/23/17 20:59 Levothyroxine Sodium (Synthroid Tab) 25 mcg DAILYBB PO 05/25/17 06:00 06/24/17 06:59 05/25/17 06:00 25 MCG Levothyroxine Sodium (Synthroid Tab) 200 mcg DAILYBB PO 05/25/17 06:00 06/24/17 06:59 05/25/17 06:00 200 MCG Losartan Potassium (coZAAR TAB) 100 mg QAM PO 05/25/17 09:00 06/24/17 08:59 05/25/17 08:14 100 MG Multivitamins (Multivitamin Tab) 1 tab QAM PO 05/25/17 09:00 06/24/17 08:59 05/25/17 08:12 1 TAB Polyethylene (Miralax Powder Packet) 17 gm DAILY PRN PO 05/24/17 15:15 06/23/17 15:14 Multivitamins/ Minerals (Multivitamin W/ Minerals Tab) 1 tab DAILY PO 05/25/17 09:00 06/24/17 08:59 05/25/17 08:15 1 TAB Pantoprazole Sodium (Protonix Tab) 40 mg QAM PO 05/25/17 09:00 06/24/17 08:59 05/25/17 08:13 40 MG Miscellaneous Information (Order Awaiting Action) 1 ea QS N/A 05/24/17 16:00 06/23/17 15:59 Gadobutrol (Gadavist) 7 mmol UD PRN IV 05/24/17 17:45 05/28/17 17:44 Miscellaneous Information (Order Awaiting Action) 1 ea QS N/A 05/25/17 00:00 06/24/17 00:00 Miscellaneous Information (Order Awaiting Action) 1 ea QS N/A 05/25/17 00:00 06/24/17 00:00 Metoprolol Succinate (Toprol Xl Tab) 12.5 mg QAM PO 05/25/17 09:00 06/24/17 08:59 Review of Systems Ros reviewed and are as noted on the admission history and physical and carlito past medical history Physical Exam Vital Signs (Past 24 Hrs): Date Time Temp Pulse Resp B/P (MAP) Pulse Ox O2 Delivery O2 Flow Rate FiO2 05/25/17 08:00 94 Nasal Cannula 1.0 05/25/17 07:31 36.7 54 18 133/78 (96) 98 05/25/17 07:12 69 16 96 Nasal Cannula 3.0 05/25/17 04:00 95 Nasal Cannula 3.0 05/25/17 03:35 37.1 64 20 138/60 (86) 95 Nasal Cannula 3.0 05/24/17 23:59 94 Nasal Cannula 3.0 05/24/17 23:20 37.7 73 18 107/53 (71) 94 Nasal Cannula 3.0 05/24/17 21:52 76 120/67 (84) 05/24/17 21:47 76 05/24/17 20:00 37.3 69 22 156/85 92 Room Air 05/24/17 20:00 92 Room Air 05/24/17 19:36 80 16 92 Room Air 05/24/17 19:30 92 Room Air 05/24/17 19:05 37.3 69 22 156/85 (108) 92 Room Air 05/24/17 15:44 83 20 153/75 94 Room Air 05/24/17 13:42 77 18 172/84 94 Room Air 05/24/17 12:21 84 05/24/17 11:16 36.9 72 22 184/84 94 Room Air As per the general examination by Amy DELANEY revealing only a few rhonchi and a slow irregularly irregular rhythm Today the neurological exam shows a dense left homonymous hemianopsia, reduced visual acuity bilaterally to about 20/100 mild left facial weakness but otherwise normal cranial nerves. Gait is a bit unsteady and requires a cane for stability but is primarily due to visual loss and there is no spasticity or ataxia and no tremor, tics or choreiform activity and at most a minor drift of the left arm with good facility of rapid movements. Reflexes a diffusely hypoactiv but toes are downgoing and there are no Bermudez reflexes. Strength is excellent without any atrophy or fasiculations and sensory exam is grossly intact to vibration and light touch and position Laboratory Results Past 24 Hours: 05/25/17 06:15 Red Blood Count 4.08, Mean Corpuscular Volume 97.5, Mean Corpuscular Hemoglobin 33.6, Mean Corpuscular Hemoglobin Concent 34.4, Mean Platelet Volume 10.2, Neutrophils (%) (Auto) 67.9, Lymphocytes (%) (Auto) 20.2, Monocytes (%) (Auto) 8.7, Eosinophils (%) (Auto) 2.6, Basophils (%) (Auto) 0.6, Neutrophils # (Auto) 3.59, Lymphocytes # (Auto) 1.07, Monocytes # (Auto) 0.46, Eosinophils # (Auto) 0.14, Basophils # (Auto) 0.03 05/25/17 06:15 Test 05/24/17 12:11 05/25/17 06:15 Activated Partial Thromboplast Time 36.6 SECONDS (21.0-31.0) Partial Thromboplastin Ratio 1.4 Estimated Average Glucose 105 mg/dl Hemoglobin A1c 5.3 % (4.5-5.6) Total Bilirubin 0.5 mg/dl (0.2-1) Direct Bilirubin 0.1 mg/dl (0-0.2) Aspartate Amino Transf (AST/SGOT) 39 U/L (15-37) Alanine Aminotransferase (ALT/SGPT) 43 U/L (12-78) Alkaline Phosphatase 84 U/L (45-117) Total Creatine Kinase 44 U/L (26-192) Creatine Kinase MB 1.1 ng/ml (0.5-3.6) Creatine Kinase MB Ratio 2.5 (0-3.0) Total Protein 7.0 gm/dl (6.4-8.2) Albumin 3.7 gm/dl (3.4-5.0) White Blood Count 5.29 K/uL (4.8-10.8) Red Blood Count 4.08 M/uL (4.2-5.4) Hemoglobin 13.7 g/dL (12.0-16.0) Hematocrit 39.8 % (37-47) Mean Corpuscular Volume 97.5 fL (80-100) Mean Corpuscular Hemoglobin 33.6 pg (25-34) Mean Corpuscular Hemoglobin Concent 34.4 g/dl (32-36) Platelet Count 156 K/uL (130-400) Mean Platelet Volume 10.2 fL (7.4-10.4) Neutrophils (%) (Auto) 67.9 % Lymphocytes (%) (Auto) 20.2 % Monocytes (%) (Auto) 8.7 % Eosinophils (%) (Auto) 2.6 % Basophils (%) (Auto) 0.6 % Neutrophils # (Auto) 3.59 K/uL (1.4-6.5) Lymphocytes # (Auto) 1.07 K/uL (1.2-3.4) Monocytes # (Auto) 0.46 K/uL (0.11-0.59) Eosinophils # (Auto) 0.14 K/uL (0-0.5) Basophils # (Auto) 0.03 K/uL (0-0.2) RDW Standard Deviation 43.0 fL (36.4-46.3) RDW Coefficient of Variation 12.0 % (11.5-14.5) Immature Granulocyte % (Auto) 0.0 % Immature Granulocyte # (Auto) 0.00 K/uL (0.00-0.02) Prothrombin Time 19.7 SECONDS (9.0-12.0) Prothromb Time International Ratio 1.8 (0.9-1.1) Anion Gap 6.0 mmol/L (3-11) Est Creatinine Clear Calc Drug Dose 48.4 ml/min Estimated GFR () 79.8 Estimated GFR (Non- 68.8 BUN/Creatinine Ratio 21.8 (10-20) Calcium Level 9.6 mg/dl (8.5-10.1) Magnesium Level 2.4 mg/dl (1.8-2.4) Triglycerides Level 281 mg/dl (0-150) Cholesterol Level 142 mg/dl (0-200) HDL Cholesterol 27 mg/dl LDL Cholesterol, Calculated 59 mg/dl VLDL Cholesterol, Calculated 56 mg/dl Cholesterol/HDL Ratio 5.3 Thyroid Stimulating Hormone (TSH) 0.223 uIu/ml (0.300-4.500) Digoxin Level 1.2 ng/ml (0.8-2.0) Imaging I have reviewed the initial CT of the head and the subsequent MRI scans of the brain along with the MRA studies of the brain and extracranial vessels and agree with the findings reported ie in essence an acute currently non hemorrhagic right occipital cva with prior small vessel disease and a diminuitive left vertebral artey of no clinical significance. Impression This is clearly an acute right occipital cva likely embolic from her atrial fib or potentially the valve itself and in the setting of a slightly low inr. As discussed with Amy Frank and Dr Cary I would not do anything more than adjust the coumadin dose a bit to get the INR into range and tosin repeat the head ct noncontrast in about 48 hours to check for hemorrhagic transformation of the acute event. Occipital cvas have a greater propensity for hemorrhagic transformation and at her age there is a risk for preexisting amyloid angiopathic changes which would add to the risk Plan As discussed today would get pt ot speech involved just to assess her potential needs for rehab an home care, would get inr up into the range, permissive hypertension, the usual algorithmic trament of lipids etc ( likely already in place per pcp and would make no significant changes based on this embolic event ) and repeat ct tomorrow at the 48 hour post onset interval to check for bleeding I will get back tomorrow
[2017-05-25] MEDS: DIGOXIN 0.125 MG TAB PO SCH (15:43)
[2017-05-25] MEDS ORDERED: WARFARIN SOD 5 MG TAB PO ONE (16:00)
[2017-05-25] MEDS: ATORVASTATIN 20 MG TAB PO SCH (19:44)
[2017-05-25] MEDS: LOTEPREDNOL ETABONATE 0.5% OP SCH (19:47)
[2017-05-25] MEDS: TEMAZEPAM 15 MG CAP PO PRN (21:28)
--- NOTE | 2017-05-25 22:52 | Progress Note ---
Medicine Progress Note Date & Time of Visit: May 25, 2017 at ~ 14:00 . Subjective No new neuro symptoms. Mild right frontal headache. Vision back to baseline. No fever. No chest pain. No cough or SOB. No nausea or vomiting. No urinary symptoms. . Objective Last 8 Hrs Date Time Temp Pulse Resp B/P (MAP) Pulse Ox O2 Delivery O2 Flow Rate FiO2 05/25/17 20:00 Room Air 05/25/17 19:02 77 16 92 Room Air 05/25/17 19:00 36.7 83 18 157/96 (116) 91 Room Air 05/25/17 16:00 Room Air 05/25/17 15:43 54 05/25/17 15:04 36.6 70 16 137/79 (98) 93 Room Air Physical Exam: General- no distress Neck- no JVD Lungs- clear Heart- irregular, II/ systolic murmur at base Abdomen- + BS, soft, nontender Extremities- trace pretibial edema, no calf tenderness Neuro- alert; PERRL, EOMI; no facial palsy or dysarthria; motor strength upper and lower extremities 4+/5 bilat . Laboratory Results: Last 24 Hours Test 05/25/17 06:15 White Blood Count 5.29 K/uL Red Blood Count 4.08 M/uL Hemoglobin 13.7 g/dL Hematocrit 39.8 % Mean Corpuscular Volume 97.5 fL Mean Corpuscular Hemoglobin 33.6 pg Mean Corpuscular Hemoglobin Concent 34.4 g/dl Platelet Count 156 K/uL Mean Platelet Volume 10.2 fL Neutrophils (%) (Auto) 67.9 % Lymphocytes (%) (Auto) 20.2 % Monocytes (%) (Auto) 8.7 % Eosinophils (%) (Auto) 2.6 % Basophils (%) (Auto) 0.6 % Neutrophils # (Auto) 3.59 K/uL Lymphocytes # (Auto) 1.07 K/uL Monocytes # (Auto) 0.46 K/uL Eosinophils # (Auto) 0.14 K/uL Basophils # (Auto) 0.03 K/uL RDW Standard Deviation 43.0 fL RDW Coefficient of Variation 12.0 % Immature Granulocyte % (Auto) 0.0 % Immature Granulocyte # (Auto) 0.00 K/uL Prothrombin Time 19.7 SECONDS Prothromb Time International Ratio 1.8 Sodium Level 139 mmol/L Potassium Level 4.2 mmol/L Chloride Level 106 mmol/L Carbon Dioxide Level 27 mmol/L Anion Gap 6.0 mmol/L Blood Urea Nitrogen 17 mg/dl Creatinine 0.78 mg/dl Est Creatinine Clear Calc Drug Dose 48.4 ml/min Estimated GFR () 79.8 Estimated GFR (Non- 68.8 BUN/Creatinine Ratio 21.8 Random Glucose 95 mg/dl Calcium Level 9.6 mg/dl Magnesium Level 2.4 mg/dl Triglycerides Level 281 mg/dl Cholesterol Level 142 mg/dl HDL Cholesterol 27 mg/dl LDL Cholesterol, Calculated 59 mg/dl VLDL Cholesterol, Calculated 56 mg/dl Cholesterol/HDL Ratio 5.3 Thyroid Stimulating Hormone (TSH) 0.223 uIu/ml Digoxin Level 1.2 ng/ml Assessment & Plan STROKE CT demonstrated ischemic right occipital stroke in [employer] territory. Not candidate for TPA due to warfarin therapy and duration of symptoms. Chronic AF. Mechanical AVR. MRA cervical vessels demonstrated poorly visualized left vertebral artery, patent carotid and right vertebral arteries. Echo results pending. Neuro consulted. Continued therapy with warfarin recommended. No heparin or anti-platelet meds due to high risk of hemorrhagic transformation. Check f/u CT in 1-2 days to monitor for potential hemorrhage. PT, OT, T[employer]UE AND [employer]INE [employer]TER. CHRONIC LEFT VENTRICULAR DIASTOLIC HEART FAILURE Compensated. Continue furosemide. CHRONIC ATRIAL FIBRILLATION Rate slow at times- titrate metoprolol and digoxin. Continue warfarin. MECHANICAL AORTIC VALVE REPLACEMENT Continue warfarin. LUNG MASS CT 04/01/17 demonstrated enlarging RUL mass worrisome for malignancy. Followed by Dr. Carrillo. Patient has opted not to pursue further evaluation. GERD Continue PPI. VTE PROPHYLAXIS Continue warfarin. SCD's until INR therapeutic. Ambulate as able. DISPOSITION To be determined. Anticipated need for skilled care or inpatient rehab. Consult Case Management. Family Medicine follow-up with Dr. Triston Adame. . Current Inpatient Medications: Current Inpatient Medications Medications (Trade) Dose Ordered Sig/Laura Route Start Time Stop Time Status Last Admin Dose Admin Acetaminophen (Tylenol Tab) 650 mg Q4H PRN PO 05/24/17 14:45 06/23/17 14:44 05/24/17 22:04 650 MG Ondansetron HCl (Zofran Inj) 4 mg Q6H PRN IV 05/24/17 14:45 06/23/17 14:44 Miscellaneous Information (Pharmacist Discharge Med Rec Consult) 1 ea UD PRN N/A 05/24/17 14:45 06/23/17 14:44 Albuterol Sulfate (Ventolin 0.083% 2.5MG/3ML Neb) 2.5 mg BIDR INH 05/24/17 20:00 06/23/17 20:59 05/25/17 18:59 2.5 MG Ascorbic Acid (Vitamin C Tab) 500 mg QAM PO 05/25/17 09:00 06/24/17 08:59 05/25/17 08:13 500 MG Atorvastatin Calcium (Lipitor Tab) 30 mg QPM PO 05/24/17 21:00 06/23/17 20:59 05/25/17 19:44 30 MG Calcium/Vitamin D (Caltrate Plus Tab) 2 tab DAILYBL PO 05/25/17 11:00 06/24/17 10:59 05/25/17 08:13 2 TAB Digoxin (Lanoxin Tab) 0.125 mg DAILY@1600 PO 05/24/17 16:00 06/23/17 15:59 05/24/17 21:47 0.125 MG Fexofenadine HCl (Allison Tab) 180 mg QAM PO 05/25/17 09:00 06/24/17 08:59 05/25/17 08:14 180 MG Fish Oil ([place]-3 (Purified Fish Oil) Cap) 1 gm BID@1200,2100 PO 05/24/17 21:00 06/23/17 20:59 05/25/17 19:46 1 GM Furosemide (Lasix Tab) 20 mg DAILY PO 05/25/17 09:00 06/24/17 08:59 05/25/17 08:13 20 MG Hydralazine HCl (Apresoline Tab) 50 mg TID PO 05/24/17 21:00 06/23/17 20:59 Levothyroxine Sodium (Synthroid Tab) 25 mcg DAILYBB PO 05/25/17 06:00 06/24/17 06:59 05/25/17 06:00 25 MCG Levothyroxine Sodium (Synthroid Tab) 200 mcg DAILYBB PO 05/25/17 06:00 06/24/17 06:59 05/25/17 06:00 200 MCG Losartan Potassium (coZAAR TAB) 100 mg QAM PO 05/25/17 09:00 06/24/17 08:59 05/25/17 08:14 100 MG Multivitamins (Multivitamin Tab) 1 tab QAM PO 05/25/17 09:00 06/24/17 08:59 05/25/17 08:12 1 TAB Polyethylene (Miralax Powder Packet) 17 gm DAILY PRN PO 05/24/17 15:15 06/23/17 15:14 05/25/17 19:46 17 GM Multivitamins/ Minerals (Multivitamin W/ Minerals Tab) 1 tab DAILY PO 05/25/17 09:00 06/24/17 08:59 05/25/17 08:15 1 TAB Pantoprazole Sodium (Protonix Tab) 40 mg QAM PO 05/25/17 09:00 06/24/17 08:59 05/25/17 08:13 40 MG Miscellaneous Information (Order Awaiting Action) 1 ea QS N/A 05/24/17 16:00 06/23/17 15:59 Gadobutrol (Gadavist) 7 mmol UD PRN IV 05/24/17 17:45 05/28/17 17:44 Miscellaneous Information (Order Awaiting Action) 1 ea QS N/A 05/25/17 00:00 06/24/17 00:00 Metoprolol Succinate (Toprol Xl Tab) 12.5 mg QAM PO 05/25/17 09:00 06/24/17 08:59 Loteprednol Etabonate (Lotemax 0.5%) 1 drops BID OP 05/25/17 21:00 06/24/17 20:59 05/25/17 19:47 1 DROPS Temazepam (Restoril Cap) 15 mg HS PRN PO 05/25/17 20:00 06/24/17 19:59 05/25/17 21:28 15 MG
[2017-05-26] VITALS (8 sets, daily range): BP systolic 85–163; BP diastolic 48–78; PULSE 67–82; TEMP 36.7–37.3; O2SAT 92–94
[2017-05-26] MEDS: LEVOTHYROXINE 200 MCG TAB PO SCH (05:28)
[2017-05-26] MEDS: LEVOTHYROXINE 25 MCG TAB PO SCH (05:28)
[2017-05-26 06:18] LABS: BASO % 0.5 %; BASO ABS # 0.02 K/uL (0-0.2); COMPLETE YES; EOS % 2.4 %; HEMATOCRIT 40.4 % (37-47); IG% 0.2 %; LYMPH % 25.9 %; MEAN CELL VOLUME 96.9 fL (80-100); MEAN CORPUSCULAR HEMOGLOBIN 33.1 pg (25-34); MEAN CORPUSCULAR HGB CONC 34.2 g/dl (32-36); MEAN PLATELET VOLUME 10.4 fL (7.4-10.4); PLATELET COUNT 138 K/uL (130-400); RED BLOOD COUNT 4.17 M/uL (4.2-5.4); WHITE BLOOD COUNT 4.25 K/uL (4.8-10.8)
[2017-05-26 06:40] LABS: INR 2.1 (0.9-1.1); PROTHROMBIN TIME (PATIENT) 23.2 SECONDS (9.0-12.0)
[2017-05-26 06:55] LABS: BUN/CREATININE RATIO 22.3 (10-20); CALCIUM 9.8 mg/dl (8.5-10.1); CREATININE 0.75 mg/dl (0.60-1.20); POTASSIUM 4.1 mmol/L (3.5-5.1)
[2017-05-26] MEDS: ALBUTEROL 0.083% NEBU SOLN 3 ML VIAL INH SCH ×2 (07:12→19:10)
[2017-05-26] MEDS: LOTEPREDNOL ETABONATE 0.5% OP SCH ×2 (07:55→19:41)
[2017-05-26] MEDS: FEXOFENADINE HCL 180 MG TAB PO SCH (07:56)
[2017-05-26] MEDS: LOSARTAN POTASSIUM 50 MG TAB PO SCH (07:57)
[2017-05-26] MEDS: FUROSEMIDE 20 MG TAB PO SCH (07:58)
[2017-05-26] MEDS: PANTOprazole SOD 40 MG TAB PO SCH (07:58)
[2017-05-26] MEDS: MULTIVITAMIN TAB PO SCH (07:58)
[2017-05-26] MEDS: ASCORBIC ACID 500 MG TAB PO SCH (07:59)
[2017-05-26] MEDS: CALCIUM 600MG + VIT D 400 IU TAB PO SCH (07:59)
[2017-05-26] MEDS: CEROVITE ADV FORMULA TAB PO SCH (07:59)
[2017-05-26] MEDS: METOPROLOL SUCC 25MG EXT REL TAB PO SCH (08:00)
[2017-05-26] MEDS: [UNRECOGNIZED DRUG - OTHER] SCH (08:00)
[2017-05-26] MEDS ORDERED: PERFLUTREN LIPID MICROSPHERE (DEFINITY) IV ONE (09:37)
--- NOTE | 2017-05-26 10:37 | Neurology Progress Notes ---
Neurology Progress Note Date of Service May 26, 2017. Subjective Mrs Sheikh is better today but still had a significant and nearly total left hemononymous hemianopsia with less left facial asymmetry and only minor drift of the left arm She is very impaired visually at baseline due to macular degeneration and now has a left hemifield cut making her at greater fall risk She still has a mild headache but otherwise feels well and is anxious to go home if she can. Objective Date Time Temp Pulse Resp B/P (MAP) Pulse Ox O2 Delivery O2 Flow Rate FiO2 05/26/17 08:00 Room Air 05/26/17 07:43 37.1 78 19 163/78 (106) 94 Room Air 05/26/17 07:12 67 16 93 Room Air 05/26/17 04:00 Room Air 05/26/17 03:45 37.3 72 18 151/71 (97) 92 Room Air 05/25/17 23:59 Room Air 05/25/17 23:15 36.3 74 18 174/97 (122) 93 Room Air 05/25/17 20:00 Room Air 05/25/17 19:02 77 16 92 Room Air 05/25/17 19:00 36.7 83 18 157/96 (116) 91 Room Air 05/25/17 16:00 Room Air 05/25/17 15:43 54 05/25/17 15:04 36.6 70 16 137/79 (98) 93 Room Air 05/25/17 12:00 Room Air 05/25/17 11:44 36.5 59 122/78 (93) 92 Room Air Last 24 Hours Test 05/26/17 05:56 White Blood Count 4.25 K/uL Red Blood Count 4.17 M/uL Hemoglobin 13.8 g/dL Hematocrit 40.4 % Mean Corpuscular Volume 96.9 fL Mean Corpuscular Hemoglobin 33.1 pg Mean Corpuscular Hemoglobin Concent 34.2 g/dl Platelet Count 138 K/uL Mean Platelet Volume 10.4 fL Neutrophils (%) (Auto) 59.0 % Lymphocytes (%) (Auto) 25.9 % Monocytes (%) (Auto) 12.0 % Eosinophils (%) (Auto) 2.4 % Basophils (%) (Auto) 0.5 % Neutrophils # (Auto) 2.51 K/uL Lymphocytes # (Auto) 1.10 K/uL Monocytes # (Auto) 0.51 K/uL Eosinophils # (Auto) 0.10 K/uL Basophils # (Auto) 0.02 K/uL RDW Standard Deviation 42.6 fL RDW Coefficient of Variation 12.0 % Immature Granulocyte % (Auto) 0.2 % Immature Granulocyte # (Auto) 0.01 K/uL Prothrombin Time 23.2 SECONDS Prothromb Time International Ratio 2.1 Sodium Level 141 mmol/L Potassium Level 4.1 mmol/L Chloride Level 107 mmol/L Carbon Dioxide Level 29 mmol/L Anion Gap 5.0 mmol/L Blood Urea Nitrogen 17 mg/dl Creatinine 0.75 mg/dl Est Creatinine Clear Calc Drug Dose 50.4 ml/min Estimated GFR () 83.7 Estimated GFR (Non- 72.2 BUN/Creatinine Ratio 22.3 Random Glucose 107 mg/dl Calcium Level 9.8 mg/dl Exam: Alert oriented and conversant Dense left hemianopsia Minor left facial asymmetry ( may be old ) and slight to negligible drift of the left arm with otherwise intact cranial nerves dts etc Current Inpatient Medications Medications (Trade) Dose Ordered Sig/Laura Route Start Time Stop Time Status Last Admin Dose Admin Acetaminophen (Tylenol Tab) 650 mg Q4H PRN PO 05/24/17 14:45 06/23/17 14:44 05/24/17 22:04 650 MG Ondansetron HCl (Zofran Inj) 4 mg Q6H PRN IV 05/24/17 14:45 06/23/17 14:44 Miscellaneous Information (Pharmacist Discharge Med Rec Consult) 1 ea UD PRN N/A 05/24/17 14:45 06/23/17 14:44 Albuterol Sulfate (Ventolin 0.083% 2.5MG/3ML Neb) 2.5 mg BIDR INH 05/24/17 20:00 06/23/17 20:59 05/26/17 07:12 2.5 MG Ascorbic Acid (Vitamin C Tab) 500 mg QAM PO 05/25/17 09:00 06/24/17 08:59 05/26/17 07:59 500 MG Atorvastatin Calcium (Lipitor Tab) 30 mg QPM PO 05/24/17 21:00 06/23/17 20:59 05/25/17 19:44 30 MG Calcium/Vitamin D (Caltrate Plus Tab) 2 tab DAILYBL PO 05/25/17 11:00 06/24/17 10:59 05/26/17 07:59 2 TAB Digoxin (Lanoxin Tab) 0.125 mg DAILY@1600 PO 05/24/17 16:00 06/23/17 15:59 05/24/17 21:47 0.125 MG Fexofenadine HCl (Allison Tab) 180 mg QAM PO 05/25/17 09:00 06/24/17 08:59 05/26/17 07:56 180 MG Furosemide (Lasix Tab) 20 mg DAILY PO 05/25/17 09:00 06/24/17 08:59 05/26/17 07:58 20 MG Hydralazine HCl (Apresoline Tab) 50 mg TID PO 05/24/17 21:00 06/23/17 20:59 05/26/17 07:57 50 MG Levothyroxine Sodium (Synthroid Tab) 25 mcg DAILYBB PO 05/25/17 06:00 06/24/17 06:59 05/26/17 05:28 25 MCG Levothyroxine Sodium (Synthroid Tab) 200 mcg DAILYBB PO 05/25/17 06:00 06/24/17 06:59 05/26/17 05:28 200 MCG Losartan Potassium (coZAAR TAB) 100 mg QAM PO 05/25/17 09:00 06/24/17 08:59 05/26/17 07:57 100 MG Multivitamins (Multivitamin Tab) 1 tab QAM PO 05/25/17 09:00 06/24/17 08:59 05/26/17 07:58 1 TAB Polyethylene (Miralax Powder Packet) 17 gm DAILY PRN PO 05/24/17 15:15 06/23/17 15:14 05/25/17 19:46 17 GM Multivitamins/ Minerals (Multivitamin W/ Minerals Tab) 1 tab DAILY PO 05/25/17 09:00 06/24/17 08:59 05/26/17 07:59 1 TAB Pantoprazole Sodium (Protonix Tab) 40 mg QAM PO 05/25/17 09:00 06/24/17 08:59 05/26/17 07:58 40 MG Miscellaneous Information (Order Awaiting Action) 1 ea QS N/A 05/24/17 16:00 06/23/17 15:59 Gadobutrol (Gadavist) 7 mmol UD PRN IV 05/24/17 17:45 05/28/17 17:44 Miscellaneous Information (Order Awaiting Action) 1 ea QS N/A 05/25/17 00:00 06/24/17 00:00 Metoprolol Succinate (Toprol Xl Tab) 12.5 mg QAM PO 05/25/17 09:00 06/24/17 08:59 05/26/17 08:00 12.5 MG Loteprednol Etabonate (Lotemax 0.5%) 1 drops BID OP 05/25/17 21:00 06/24/17 20:59 05/26/17 07:55 1 DROPS Temazepam (Restoril Cap) 15 mg HS PRN PO 05/25/17 20:00 06/24/17 19:59 05/25/17 21:28 15 MG Impression This is clearly an acute right occipital cva likely embolic from her atrial fib or potentially the valve itself and in the setting of a slightly low inr. As discussed with Amy Frank and Dr Cary I would not do anything more than adjust the coumadin dose a bit to get the INR into range and tosin repeat the head ct noncontrast in about 48 hours to check for hemorrhagic transformation of the acute event. Occipital cvas have a greater propensity for hemorrhagic transformation and at her age there is a risk for preexisting amyloid angiopathic changes which would add to the risk Exam as per above She is a greater fall risk now due to combination of macular degeneration and post cva hemianopsia with likely some elements of nondominant hemispheric driven "neglect" and lack of full awareness of her deficits She will need social service assessment perhaps some inpatient rehab for guidance and willl need another ct today to exclude hemorrhagic transformation of the right occipital infarction Plan As discussed today would get pt ot speech involved just to assess her potential needs for rehab an home care, would get inr up into the range, permissive hypertension, the usual algorithmic treament of lipids etc ( likely already in place per pcp and would make no significant changes based on this embolic event ) and repeat ct tomorrow at the 48 hour post onset interval to check for bleeding As per above notes will need social service pt ot possibly brief inpatient rehab and repeat ct today non contrast Sissy Salinas MD will assess tomorrow
--- NOTE | 2017-05-26 11:29 | DIAGNOSTIC IMAGING REPORT ---
CT SCAN OF THE BRAIN WITHOUT IV CONTRAST CLINICAL HISTORY: Right ANCHOR TACKER territory stroke. COMPARISON STUDY: CT an MRI of the brain dated 05/24/2017. TECHNIQUE: Unenhanced axial CT scan of the brain is performed from the vertex to the skull base. CT DOSE: 537.48 mGy.cm FINDINGS: Brain parenchyma: There is loss of egan-white matter differentiation is seen in the right ANCHOR TACKER territory consistent with an evolving infarct. Mild surrounding edema is noted. No hemorrhage is identified and there is no midline shift. No new foci of ischemia are suspected. There are age-related involutional changes noting [id number] patchy subcortical and periventricular microangiopathic change. No extra-axial fluid collection is seen. Ventricles, sulci, cisterns: Prominent secondary to involutional change. Intracranial vasculature: There is atherosclerotic calcification of the cavernous carotid arteries. Calvarium: Unremarkable. Sinuses and mastoids: The visualized paranasal sinuses are clear. The mastoid air cells are well pneumatized. Orbits: The bony orbits are grossly intact. There are bilateral ocular lens implants. IMPRESSION: 1. Evolving right ANCHOR TACKER territory infarct. 2. There is no hemorrhage or midline shift. No new foci of acute ischemia are suspected. Electronically signed by: Rajan Swain M.D. 05/26/2017 11:28 AM Dictated Date/Time: 05/26/2017 11:25 AM
--- NOTE | 2017-05-26 12:00 | Progress Note ---
Medicine Progress Note Date & Time of Visit: May 26, 2017 at 11:20 . Subjective Headache essentially resolved. Pt uncertain whether vision back to baseline (has severe underlying impairment due to macular degeneration). No dysarthria, aphasia, aspiration. No significant weakness extremities. No chest pain. No cough or SOB. No nausea or appetite. No BM for 1-2 days. No urinary symptoms. . Objective Last 8 Hrs Date Time Temp Pulse Resp B/P (MAP) Pulse Ox O2 Delivery O2 Flow Rate FiO2 05/26/17 08:00 Room Air 05/26/17 07:43 37.1 78 19 163/78 (106) 94 Room Air 05/26/17 07:12 67 16 93 Room Air 05/26/17 04:00 Room Air Physical Exam: General- no distress Neck- no JVD Lungs- clear Heart- irregular, II/ systolic murmur at base Abdomen- + BS, soft, nontender Extremities- trace pretibial edema, no calf tenderness Neuro- alert; EOMI; mild left facial palsy; no dysarthria; motor strength upper and lower extremities 4+/5 bilat . Laboratory Results: Last 24 Hours Test 05/26/17 05:56 White Blood Count 4.25 K/uL Red Blood Count 4.17 M/uL Hemoglobin 13.8 g/dL Hematocrit 40.4 % Mean Corpuscular Volume 96.9 fL Mean Corpuscular Hemoglobin 33.1 pg Mean Corpuscular Hemoglobin Concent 34.2 g/dl Platelet Count 138 K/uL Mean Platelet Volume 10.4 fL Neutrophils (%) (Auto) 59.0 % Lymphocytes (%) (Auto) 25.9 % Monocytes (%) (Auto) 12.0 % Eosinophils (%) (Auto) 2.4 % Basophils (%) (Auto) 0.5 % Neutrophils # (Auto) 2.51 K/uL Lymphocytes # (Auto) 1.10 K/uL Monocytes # (Auto) 0.51 K/uL Eosinophils # (Auto) 0.10 K/uL Basophils # (Auto) 0.02 K/uL RDW Standard Deviation 42.6 fL RDW Coefficient of Variation 12.0 % Immature Granulocyte % (Auto) 0.2 % Immature Granulocyte # (Auto) 0.01 K/uL Prothrombin Time 23.2 SECONDS Prothromb Time International Ratio 2.1 Sodium Level 141 mmol/L Potassium Level 4.1 mmol/L Chloride Level 107 mmol/L Carbon Dioxide Level 29 mmol/L Anion Gap 5.0 mmol/L Blood Urea Nitrogen 17 mg/dl Creatinine 0.75 mg/dl Est Creatinine Clear Calc Drug Dose 50.4 ml/min Estimated GFR () 83.7 Estimated GFR (Non- 72.2 BUN/Creatinine Ratio 22.3 Random Glucose 107 mg/dl Calcium Level 9.8 mg/dl Diagnostic Imaging: CT HEAD TODAY: IMPRESSION: 1. Evolving right DESK CLERK territory infarct. 2. There is no hemorrhage or midline shift. No new foci of acute ischemia are suspected. Electronically signed by: Rajan wSain M.D. 05/26/2017 11:28 AM . Assessment & Plan STROKE CT demonstrated ischemic right occipital stroke in DESK CLERK territory. Not candidate for TPA due to warfarin therapy and duration of symptoms. Chronic AF. Mechanical AVR. MRA cervical vessels demonstrated poorly visualized left vertebral artery, patent carotid and right vertebral arteries. Echo results pending. Neuro consulted. Continued therapy with warfarin recommended. No heparin or anti-platelet meds due to high risk of hemorrhagic transformation. No hemorrhage on today's f/u CT. 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 CHRONIC LEFT VENTRICULAR DIASTOLIC HEART FAILURE Compensated. Continue furosemide. CHRONIC ATRIAL FIBRILLATION Rate slow at times- titrate metoprolol and digoxin. Continue warfarin. MECHANICAL AORTIC VALVE REPLACEMENT Continue warfarin. INR goal 2.5-3.0 (lower half of therapeutic range); today = 2.1. Received 10 mg yesterday. 7.5 mg ordered for today. LUNG MASS CT 04/01/17 demonstrated enlarging RUL mass worrisome for malignancy. Followed by Dr. Carrillo. Patient has opted not to pursue further evaluation. GERD Continue PPI. VTE PROPHYLAXIS Continue warfarin. SCD's until INR therapeutic. Ambulate as able. DISPOSITION To be determined. Anticipated need for skilled care or inpatient rehab. Consult Case Management. Family Medicine follow-up with Dr. Triston Adame. . Current Inpatient Medications: Current Inpatient Medications Medications (Trade) Dose Ordered Sig/Laura Route Start Time Stop Time Status Last Admin Dose Admin Acetaminophen (Tylenol Tab) 650 mg Q4H PRN PO 05/24/17 14:45 06/23/17 14:44 05/24/17 22:04 650 MG Ondansetron HCl (Zofran Inj) 4 mg Q6H PRN IV 05/24/17 14:45 06/23/17 14:44 Miscellaneous Information (Pharmacist Discharge Med Rec Consult) 1 ea UD PRN N/A 05/24/17 14:45 06/23/17 14:44 Albuterol Sulfate (Ventolin 0.083% 2.5MG/3ML Neb) 2.5 mg BIDR INH 05/24/17 20:00 06/23/17 20:59 05/26/17 07:12 2.5 MG Ascorbic Acid (Vitamin C Tab) 500 mg QAM PO 05/25/17 09:00 06/24/17 08:59 05/26/17 07:59 500 MG Atorvastatin Calcium (Lipitor Tab) 30 mg QPM PO 05/24/17 21:00 06/23/17 20:59 05/25/17 19:44 30 MG Calcium/Vitamin D (Caltrate Plus Tab) 2 tab DAILYBL PO 05/25/17 11:00 06/24/17 10:59 05/26/17 07:59 2 TAB Digoxin (Lanoxin Tab) 0.125 mg DAILY@1600 PO 05/24/17 16:00 06/23/17 15:59 05/24/17 21:47 0.125 MG Fexofenadine HCl (Allison Tab) 180 mg QAM PO 05/25/17 09:00 06/24/17 08:59 05/26/17 07:56 180 MG Furosemide (Lasix Tab) 20 mg DAILY PO 05/25/17 09:00 06/24/17 08:59 05/26/17 07:58 20 MG Hydralazine HCl (Apresoline Tab) 50 mg TID PO 05/24/17 21:00 06/23/17 20:59 05/26/17 07:57 50 MG Levothyroxine Sodium (Synthroid Tab) 25 mcg DAILYBB PO 05/25/17 06:00 06/24/17 06:59 05/26/17 05:28 25 MCG Levothyroxine Sodium (Synthroid Tab) 200 mcg DAILYBB PO 05/25/17 06:00 06/24/17 06:59 05/26/17 05:28 200 MCG Losartan Potassium (coZAAR TAB) 100 mg QAM PO 05/25/17 09:00 06/24/17 08:59 05/26/17 07:57 100 MG Multivitamins (Multivitamin Tab) 1 tab QAM PO 05/25/17 09:00 06/24/17 08:59 05/26/17 07:58 1 TAB Polyethylene (Miralax Powder Packet) 17 gm DAILY PRN PO 05/24/17 15:15 06/23/17 15:14 05/25/17 19:46 17 GM Multivitamins/ Minerals (Multivitamin W/ Minerals Tab) 1 tab DAILY PO 05/25/17 09:00 06/24/17 08:59 05/26/17 07:59 1 TAB Pantoprazole Sodium (Protonix Tab) 40 mg QAM PO 05/25/17 09:00 06/24/17 08:59 05/26/17 07:58 40 MG Miscellaneous Information (Order Awaiting Action) 1 ea QS N/A 05/24/17 16:00 06/23/17 15:59 Gadobutrol (Gadavist) 7 mmol UD PRN IV 05/24/17 17:45 05/28/17 17:44 Miscellaneous Information (Order Awaiting Action) 1 ea QS N/A 05/25/17 00:00 06/24/17 00:00 Metoprolol Succinate (Toprol Xl Tab) 12.5 mg QAM PO 05/25/17 09:00 06/24/17 08:59 05/26/17 08:00 12.5 MG Loteprednol Etabonate (Lotemax 0.5%) 1 drops BID OP 05/25/17 21:00 06/24/17 20:59 05/26/17 07:55 1 DROPS Temazepam (Restoril Cap) 15 mg HS PRN PO 05/25/17 20:00 06/24/17 19:59 05/25/17 21:28 15 MG
[2017-05-26] MEDS: DIGOXIN 0.125 MG TAB PO SCH (16:00)
[2017-05-26] MEDS: WARFARIN SOD 7.5 MG TAB PO SCH (16:00)
--- NOTE | 2017-05-26 16:35 | ECHOCARDIOGRAM REPORT ---
*NOTICE TO RECEIVING REPUBLICAN AGENCY This information is strictly Confidential and protected under [place] law. [place] law prohibits you from making any further disclosure of this information unless further disclosure is expressly permitted by the written consent of the person to whom it pertains or is authorized by law. A general authorization for the release of medical or other information is not sufficient for this purpose. Hospital accepts no responsibility if the information is made available to any other person, INCLUDING THE PATIENT. Interpretation Summary * Name: NIK KNIGHT Study Date: 05/26/2017 09:12 AM BP: 138/60 mmHg * Patient Location: .2E\S\E204\S\1 HR: 118 * : 1930 (M/d/yyyy) Gender: Female Height: 66 in * Age: 86 yrs Ethnicity: [place] Weight: 149 lb * Ordering Physician: Amy Frank * Referring Physician: Self, Referred * Performed By: Ascencion العراقي RDCS * * Reason For Study: CVA * BSA: 1.8 m2 * -- Conclusions -- * There is severe calcific aortic valve stenosis. * There is mild mitral regurgitation. * There is moderate tricuspid regurgitation. * The left ventricular cavity is small. * There is moderate concentric left ventricular hypertrophy. * Ejection Fraction = 65-70%. * The right ventricular systolic function is qualitatively normal. * The left atrium is moderately dilated. * The right atrium is moderately dilated. Procedure Details * A complete two-dimensional transthoracic echocardiogram was performed (2D, M-mode, Doppler and color flow Doppler). * The study was technically difficult. * There were technical limitations due to patient'sPoor acoustic windowS. * The study was technically difficult, but visualization was adequate with the administration of Definity ultrasound contrast. * A contrast injection of Definity was performed to improve assessment of LV function. * Contrast was injected into an intravenous site in the right arm. * One vial of Definity ultrasound contrast was diluted in normal saline to a total volume of 10 ml. A total of '3' ml of solution was administered during imaging. * Lot # [id number] of Definity utilized for procedure. * Expiration date 1AUG18. * The attending nurse who injected the contrast agent was HUANG Singh. Left Ventricle * The left ventricular cavity is small. * There is moderate concentric left ventricular hypertrophy. * Ejection Fraction = 65-70%. * The left ventricular wall motion is normal. Right Ventricle * The right ventricle is grossly normal size. * The right ventricular systolic function is qualitatively normal. Atria * The left atrium is moderately dilated. * The right atrium is moderately dilated. * There is no evidence of atrial septal defect, but resolution does not allow assessment for a patent foramen ovale. Mitral Valve * There is moderate mitral annular calcification. * The mitral valve leaflets appear thickened, but open well. * There is mild mitral regurgitation. Tricuspid Valve * The tricuspid valve is not well visualized. * There is moderate tricuspid regurgitation. Aortic Valve * The aortic valve is not well visualized. * There is severe calcific aortic valve stenosis. * Mild aortic regurgitation. Pericardium/Pleural * There is no pericardial effusion. MMode 2D Measurements and Calculations IVSd 1.2 cm IVSs 1.6 cm LVIDd 4.7 cm LVIDs 3.4 cm LVPWd 1.2 cm LVPWs 1.6 cm IVS/LVPW 1.0 FS 27.8 % EDV(Teich) 101.9 ml ESV(Teich) 47.1 ml EF(Teich) 53.8 % EDV(cubed) 103.3 ml ESV(cubed) 38.9 ml EF(cubed) 62.3 % % IVS thick 25.3 % % LVPW thick 27.0 % LV mass(C)d 223.4 grams LV mass(C)dI 126.6 grams/m\S\2 LV mass(C)s 200.4 grams LV mass(C)sI 113.6 grams/m\S\2 SV(Teich) 54.9 ml SI(Teich) 31.1 ml/m\S\2 SV(cubed) 64.3 ml SI(cubed) 36.5 ml/m\S\2 ACS 1.3 cm LA dimension 4.6 cm asc Aorta Diam 3.7 cm LVOT diam 1.9 cm LVOT area 2.8 cm\S\2 LVAd ap4 20.3 cm\S\2 LVLd ap4 6.4 cm EDV(MOD-sp4) 53.0 ml LVAs ap4 10.5 cm\S\2 LVLs ap4 5.7 cm ESV(MOD-sp4) 17.0 ml EF(MOD-sp4) 67.9 % LVAd ap2 23.1 cm\S\2 LVLd ap2 6.7 cm EDV(MOD-sp2) 67.0 ml LVAs ap2 10.2 cm\S\2 LVLs ap2 5.1 cm ESV(MOD-sp2) 18.0 ml EF(MOD-sp2) 73.1 % SV(MOD-sp4) 36.0 ml SI(MOD-sp4) 20.4 ml/m\S\2 SV(MOD-sp2) 49.0 ml SI(MOD-sp2) 27.8 ml/m\S\2 Doppler Measurements and Calculations MV E max roger 122.9 cm/sec MV dec time 0.30 sec Ao V2 max 367.0 cm/sec Ao max PG 53.9 mmHg Ao max PG (full) 48.3 mmHg ROCIO(V,A) 0.90 cm\S\2 ROCIO(V,D) 0.90 cm\S\2 AI max rogre 517.5 cm/sec AI max PG 107.1 mmHg AI dec slope 215.5 cm/sec\S\2 AI P1/2t 703.4 msec LV V1 max PG 5.6 mmHg LV V1 max 117.9 cm/sec PA V2 max 113.8 cm/sec PA max PG 5.2 mmHg TR max roger 244.3 cm/sec
[2017-05-26] MEDS: ATORVASTATIN 20 MG TAB PO SCH (19:42)
[2017-05-26] MEDS ORDERED: METOPROLOL SUCC 25MG EXT REL TAB PO SCH (21:00)
[2017-05-26] MEDS: TEMAZEPAM 15 MG CAP PO PRN (21:47)
[2017-05-27] VITALS (10 sets, daily range): BP systolic 116–150; BP diastolic 59–81; PULSE 50–87; TEMP 36.5–37.2; O2SAT 91–98
[2017-05-27] MEDS ORDERED: TEMAZEPAM 15 MG CAP PO ONE (00:23)
[2017-05-27] MEDS: LEVOTHYROXINE 25 MCG TAB PO SCH (06:02)
[2017-05-27] MEDS: LEVOTHYROXINE 200 MCG TAB PO SCH (06:02)
[2017-05-27] MEDS: ALBUTEROL 0.083% NEBU SOLN 3 ML VIAL INH SCH ×2 (07:05→19:56)
[2017-05-27 07:07] LABS: INR 2.2 (0.9-1.1); PROTHROMBIN TIME (PATIENT) 24.3 SECONDS (9.0-12.0)
[2017-05-27] MEDS ORDERED: METO50TA7 PO (07:48)
[2017-05-27] MEDS: UMECLIDINIUM-VILANTEROL (ANORO) INH SCH (08:46)
[2017-05-27] MEDS: LOTEPREDNOL ETABONATE 0.5% OP SCH ×2 (08:48→21:33)
[2017-05-27] MEDS: FEXOFENADINE HCL 180 MG TAB PO SCH (08:48)
[2017-05-27] MEDS: LOSARTAN POTASSIUM 50 MG TAB PO SCH (08:49)
[2017-05-27] MEDS: CEROVITE ADV FORMULA TAB PO SCH (08:49)
[2017-05-27] MEDS: PANTOprazole SOD 40 MG TAB PO SCH (08:49)
[2017-05-27] MEDS: ASCORBIC ACID 500 MG TAB PO SCH (08:49)
[2017-05-27] MEDS: FUROSEMIDE 20 MG TAB PO SCH (08:49)
[2017-05-27] MEDS: MULTIVITAMIN TAB PO SCH (08:50)
--- NOTE | 2017-05-27 10:01 | Cardiology Consultation ---
Cardiology Consultation Date of Consultation: May 27, 2017 History of Present Illness Alina Sheikh is a 86 year old female seen in cardiology consultation per the request of Dr Cary for the evaluation of atrial fibrillation and multiple pauses noted on telemetry. The patient typically follows with Mr Roque of our practice and has been followed closely as an outpatient with most recent outpatient visit on 05/17/17. The patient initially presented to the emergency department on 05/24/17 with complaints of frontal and right eye headache with associated visual problems. CT of the brain and follow-up MRI of the brain reveal findings of a significant acute to subacute right occipital lobe stroke in the right posterior cerebral artery territory. Her INR on admission was 2.2 and was noted to be 1.8 hospital day 2. Currently her INR is 2.2. Follow-up CT revealed no significant hemorrhage or midline shift is a 05/26/17. Cardiology's consultation because on telemetry she is having multiple pauses. The most significant pause overnight last night was 4.39 seconds. Looking back ever since admission she has been noted to have pauses in the 2.5-4 second range that occur both at night as well as during the day. At baseline while sitting up in the bedside chair today atrial fibrillation with a rate of 99-120 bpm was noted. The patient is asymptomatic from a standpoint and his subjective sensation of palpitations and no subjective symptoms with the pauses either at present. Her only complaint is continued visual field deficit. Looking back, the patient has been followed closely with concerns of slow heart rates. She was seen by general cardiology as well as [facility] electrophysiology, Dr. Harmon, as an outpatient in January 2016. 24-hour Holter revealed sinus rhythm at that time with multiple pauses in the range of 2.1-3.2 seconds. She would not have a Zio monitor worker that revealed multiple 3 second pauses but did not seem to have any association with symptoms at that time. The last electrophysiology note from February 2016 describes that the patient was in sinus rhythm with likely underlying sinus node dysfunction and occasional sinus pauses but she was asymptomatic. It was felt that she developed any symptoms related to the pauses pacemaker be recommended at that point conservative surveillance was recommended. In the interim, the patient appears well-developed chronic atrial fibrillation as of 2015 was refractory to direct-current cardioversion. She is been treated with digoxin and as well as metoprolol succinate 50 mg twice a day. History Past Medical History: 1. Severe calcific aortic stenosis for which the patient underwent aortic valve replacement in July 13 with a [employer] mechanical aVR 2. Preoperative cardiac evaluation 1995 with normal coronaries by cardiac catheterization 3. History of recurrent upper and lower gastrointestinal bleeding 4 past episodes 4. History of paroxysmal atrial fibrillation in the progress to chronic atrial fibrillation in the fall of 2015 5. 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 Mobile density noted on transthoracic echocardiogram in 2014 follow-up transesophageal echocardiogram September 2015 revealed a thin "fibrin" strand. 7. Chronic obstructive lung disease, past heavy tobacco use 30 years 8. Right lower lobe lung mass 6.6 x 3.7 cm 2015, followed by Dr. beckford pulmonary medicine, patient declined further invasive therapy. 9. Breast carcinoma status post left partial mastectomy and lymph node biopsy in 2011 10. History of past TIA 2 11. Hypothyroidism 12. Dyslipidemia 13. Hypertension Past Surgical History: 1. Past aortic valve replacement as noted above 2. Partial mastectomy 2011 Social History: Former smoker 2 packs per day, quit in 1995 Review Of Systems See above for pertinent positives & negatives. A total of 10 systems reviewed and were otherwise negative. Allergies Coded Allergies: BEE STING (Verified Allergy, Intermediate, rash and site/generalized swelling, 05/24/17) Adhesives (Verified Allergy, Mild, RASH, 05/24/17) Amlodipine (Verified Allergy, Mild, unknown, 05/24/17) Azithromycin (Verified Allergy, Mild, counteraction with breathing medication, 11/10/16) Cephalosporins (Verified Allergy, Mild, unknown, 05/24/17) Sulfa Antibiotics (Verified Allergy, Mild, RASH, 05/24/17) Tetanus Toxoid (Verified Allergy, Mild, generalized swelling and rash, ) Cephalexin (Verified Allergy, Unknown, unknown, 05/24/17) Penicillins (Verified Allergy, Unknown, RASH WITH WELTS, 05/24/17) Fluvastatin (Verified Adverse Reaction, Intermediate, severe myalgias, ) Meperidine (Verified Adverse Reaction, Intermediate, Hallucinations, ) Zolpidem (Verified Adverse Reaction, Intermediate, Severe confusion and disorientation, 05/24/17) Simvastatin (Verified Adverse Reaction, Mild, Muscle Aches, 05/24/17) Iodinated Diagnostic Agents (Verified Adverse Reaction, Unknown, INCREASED BLOOD PRESSURE, 05/24/17) Prednisone (Verified Adverse Reaction, Unknown, sensitive side effects - try not to use, 05/24/17) Medications Reported Home Medications Medications Dose Route/Sig Max Daily Dose Days Date Category Dose Instructions Toprol-Xl (Metoprolol Succinate) 50 Mg Tabcr 50 Mg PO BID 05/27/17 Reported Jantoven (Warfarin Sodium) 7.5 Mg Tab 7.5 Mg PO UD 05/24/17 Reported tu, , sat, sun Jantoven (Warfarin Sodium) 5 Mg Tab 5 Mg PO UD 05/24/17 Reported mon, wed, fri Prednisone 10 Mg Tab 10 Mg PO UD 05/24/17 Reported rescue kit - [id number], [id number], [id number], [id number] Doxycycline (Doxycycline (Monohydrate)) 100 Mg Cap 1 Cap PO BID 05/24/17 Reported rescue kit Ventolin Hfa (Albuterol) 200 Puffs/82456 Mcg Aers 2 Puffs INH Q6H PRN 05/24/17 Reported Proventil 0.083% 2.5MG/3ML (Albuterol Sulf) 2.5 Mg/3 Ml Nebu 2.5 Mg INH BID 05/24/17 Reported Lotemax (Loteprednol Etabonate) 150 Drops/10 Ml Susp 1 Drops OP BID 05/24/17 Reported Synthroid (Levothyroxine Sodium) 200 Mcg Tab 1 Tab PO DAILYBB 05/24/17 Reported Synthroid (Levothyroxine Sodium) 25 Mcg Tab 25 Mcg PO DAILYBB 05/24/17 Reported Lasix (Furosemide) 20 Mg Tab 20 Mg PO DAILY 05/24/17 Reported Alendronate Sodium 35 Mg Tab 1 Tab PO WK 84 05/24/17 Reported tuesdays Preservision/Lutein (Multiple Vitamins W/ Minerals) 1 Cap Cap 1 Cap PO DAILY 11/10/16 Reported Hematinic/Folic Acid (Ferrous Fumarate-Folic Acid) 1 Tab Tab 1 Tab PO DAILY 11/10/16 Reported Digoxin 0.125 Mg Tab 1 Tab PO DAILY 11/10/16 Reported Os-Dima 500 Plus D (Calcium/Vitamin D) Tab 2 Tab PO DAILYBL 04/18/16 Reported Anoro Ellipta 62.5-25 Mcg/INH (Umeclidinium-Vilanterol) 1 Aer Aer 1 Puff INH QAM 10/07/15 Reported Epipen (Epinephrine) 0.3 Mg/0.3 Ml Inj 0.3 Mg IM UD 10/07/15 Reported Miralax (Polyethylene Glycol 3350) 1 Pow Pow 1 Tbs PO DAILY PRN 04/18/14 Reported DISSOLVE ONE HEAPING TABLESPOON IN 8 OUNCES OF WATER OR JUICE. Ascorbic Acid 500 Mg Tab 500 Mg PO QAM 04/18/14 Reported Multivitamin (Multiple Vitamin) 1 Tab Tab 1 Tab PO QAM 04/18/14 Reported Allison (Fexofenadine Hcl) 180 Mg Tab 180 Mg PO QAM 04/18/14 Reported Mucinex Ext Rel (Guaifenesin) 600 Mg Tab 600 Mg PO Q4 PRN 04/18/14 Reported Apresoline (Hydralazine Hcl) 50 Mg Tab 50 Mg PO TID 04/18/14 Reported Cozaar (Losartan Potassium) 100 Mg Tab 100 Mg PO QAM 04/18/14 Reported Prilosec (Omeprazole) 20 Mg Capcr 20 Mg PO QAM 12/28/11 Reported TAKE THIS MEDICATION ONCE DAILY ONE HOUR BEFORE FIRST MEAL OF THE DAY. Tylenol Arthritis Ext Rel (Acetaminophen) 650 Mg Cplt 1,300 Mg PO Q8 PRN 12/06/11 Reported Lipitor (Atorvastatin Calcium) 20 Mg Tab 30 Mg PO QPM 08/02/11 Reported Restoril (Temazepam) 15 Mg Cap 15-30 Mg PO HS PRN 07/26/11 Reported Derby-3 (Fish Oil) 1 Ea Cap 1 Cap PO BID@1200,2100 10/30/08 Reported Physical Exam Vital Signs (Last 8hrs): Last 8 Hrs Date Time Temp Pulse Resp B/P (MAP) Pulse Ox O2 Delivery O2 Flow Rate FiO2 05/27/17 07:58 36.7 80 19 137/81 (99) 98 Room Air 05/27/17 07:07 50 16 98 Room Air 05/27/17 04:00 Room Air 05/27/17 03:30 36.5 67 18 136/78 (97) 97 Nasal Cannula 2.0 General Appearance: Alert and Oriented x3. NAD. Head: Normocephalic Atraumatic. Eyes: PERRLA, EOMI, conjunctiva and sclera clear Neck: Supple. No carotid bruits noted. No JVD. No HJD. Respiratory: Breath sounds clear to auscultation bilaterally. No w/r/r. Cardiovascular: Irregular rhythm, prosthetic heart sounds noted Abdomen: Normal bowel sounds, soft nontender. no abdominal bruits. Extremities: No edema, no clubbing or cyanosis. distal pulses 2/4 bilaterally. Neuro: Visual field deficit Psychiatric: Normal affect. Data Last 24 Hours Test 05/27/17 05:49 Prothrombin Time 24.3 SECONDS Prothromb Time International Ratio 2.2 Imaging: MRI of the brain and CT of the brain noted above EKG performed on arrival 05/24/17 revealed atrial fibrillation with mildly elevated ventricular rate 103 bpm Telemetry reviewed: Noted in history of present illness Assessment & Plan Impression: 86-year-old female 1. Chronic persistent atrial fibrillation, with tachycardia bradycardia syndrome, multiple asymptomatic pauses in the range of 2.5-4 seconds 2. Admission for acute right occipital lobe stroke in the setting of mildly subtherapeutic international normalized ratio and mechanical AVR chronic atrial fibrillation 3. Elevated velocities 3.9-4 m/s across the prosthetic aortic valve suggestive of borderline prosthetic obstruction to prosthetic obstruction 4. Moderate concentric left ventricular hypertrophy, with normal resting wall motion normal LVEF, moderate mitral calcification, tricuspid regurgitation, mitral regurgitation 5. History of 6.6 x 3.7 right lower lobe lung mass being followed clinically patient declining further invasive therapy for this Discussion/recommendations: The patient's current heart rate situation is concerning. She is having multiple pauses that are asymptomatic, but since her metoprolol dose has been decreased and several doses have been held, she has developed a symptomatic tachycardia. From a stroke standpoint she is apparently ready to go to rehabilitation, but I'm concerned that she will be readmitted due to fast and slow heart rates if she is discharged without AV gee blockers. At present, I'm going to continue her digoxin 0.[address] her back on low-dose metoprolol with metoprolol tartrate 12.5 mg twice a day. The concerning thing is that the patient is at high risk for developing symptomatic bradycardia. Based on what is found on telemetry to be very concerned that at some point she is going to develop high-grade AV block require admission and possible pacemaker in emergency basis. Proceeding with elective pacemaker at this time however is difficult because we do not want to reverse her international normalized ratio because of her recent stroke and therefore the procedure have to be performed while on therapeutic dose of anticoagulation which of course increases her risk of bleeding and if she was to develop bleeding complications requiring reversal of her anticoagulation this could of course provoke additional stroke problems. At the present time, I think we need to monitor her on her dose digoxin and metoprolol, and continue her same Coumadin dose. Depending upon her clinical course may have to reassess the risks and benefits of pacemaker this admission. Patient is agreeable to further observation.
[2017-05-27] MEDS ORDERED: METOPROLOL TARTRATE 25 MG TAB PO ONE (10:15)
[2017-05-27] MEDS: CALCIUM 600MG + VIT D 400 IU TAB PO SCH (11:51)
--- NOTE | 2017-05-27 14:25 | Neurology Progress Notes ---
Neurology Progress Note Date of Service May 27, 2017. Bhavik Fuller is a 86 year old female who presents to the ER with reports of headache and vision problems. She states she woke with a frontal headache and vision impairment. She pressed her medical alert and told them to send her daughter. The headache was around her right eye. She has macular degeneration so her vision is already impaired but when this first happened she couldn't see at all. She states she still has numbness in her right GT. She had difficulty walking but it was due to the vision disturbance. 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 She states Dr Contreras was in this am and he is debating on a pacemaker vs medication control. denies current CP, SOB, abdominal pain, weakness, swallowing difficulties. Objective Date Time Temp Pulse Resp B/P (MAP) Pulse Ox O2 Delivery O2 Flow Rate FiO2 05/27/17 12:00 Room Air 05/27/17 11:48 37.2 86 18 116/59 (78) 92 Room Air 05/27/17 08:00 98 Room Air 05/27/17 07:58 36.7 80 19 137/81 (99) 98 Room Air 05/27/17 07:07 50 16 98 Room Air 05/27/17 04:00 Room Air 05/27/17 03:30 36.5 67 18 136/78 (97) 97 Nasal Cannula 2.0 05/26/17 23:59 Room Air 05/26/17 23:40 36.7 73 16 155/72 (99) 93 Room Air 05/26/17 20:00 Room Air 05/26/17 19:11 73 16 93 Room Air 05/26/17 19:02 37.0 80 18 144/72 (96) 93 Room Air 05/26/17 16:30 Room Air 05/26/17 16:00 78 05/26/17 15:06 37.2 75 16 115/72 (86) 94 Room Air Last 24 Hours Test 05/27/17 05:49 Prothrombin Time 24.3 SECONDS Prothromb Time International Ratio 2.2 Imaging: CT head- Evolving right GROUP TEACHER territory infarct. There is no hemorrhage or midline shift. No new foci of acute ischemia are suspected. Exam: Physical Exam: Constitutional: appearance nourished, healthy Ears, Nose, Mouth and Throat: mucous membranes moist, no injection and skin normal, eyes normal Cardiovascular: irregular with missed beats Respiratory: clear to auscultation (CTA) and no rales, rhonchi or wheeze Musculoskeletal: no peripheral edema Skin: no stigmata of neurocutaneous disease noted and normal and intact Eyes: extraocular muscles intact (EOMI) and pupils equal, round and reactive to light (PERRL)left homonymous hemianopsia left, loss of central vision NEUROLOGIC EXAMINATION: Mental status: Alert and interactive Oriented to full date and location Oriented to person Speech fluent with no evidence of aphasia Cranial Nerves slight flattening of left nasolabial fold Sensory: light and cool touch Coordination: difficulty with finger to nose with vision issues Gait/Stance: Posture lying in bed Motor: slight left sided drift Strength: biceps triceps 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 5/5, hip flex 5/5 bilaterally Current Inpatient Medications Medications (Trade) Dose Ordered Sig/Laura Route Start Time Stop Time Status Last Admin Dose Admin Acetaminophen (Tylenol Tab) 650 mg Q4H PRN PO 05/24/17 14:45 06/23/17 14:44 05/24/17 22:04 650 MG Ondansetron HCl (Zofran Inj) 4 mg Q6H PRN IV 05/24/17 14:45 06/23/17 14:44 Miscellaneous Information (Pharmacist Discharge Med Rec Consult) 1 ea UD PRN N/A 05/24/17 14:45 06/23/17 14:44 Albuterol Sulfate (Ventolin 0.083% 2.5MG/3ML Neb) 2.5 mg BIDR INH 05/24/17 20:00 06/23/17 20:59 05/27/17 07:05 2.5 MG Ascorbic Acid (Vitamin C Tab) 500 mg QAM PO 05/25/17 09:00 06/24/17 08:59 05/27/17 08:49 500 MG Atorvastatin Calcium (Lipitor Tab) 30 mg QPM PO 05/24/17 21:00 06/23/17 20:59 05/26/17 19:42 30 MG Calcium/Vitamin D (Caltrate Plus Tab) 2 tab DAILYBL PO 05/25/17 11:00 06/24/17 10:59 05/27/17 11:51 2 TAB Digoxin (Lanoxin Tab) 0.125 mg DAILY@1600 PO 05/24/17 16:00 06/23/17 15:59 05/26/17 16:00 0.125 MG Fexofenadine HCl (Allison Tab) 180 mg QAM PO 05/25/17 09:00 06/24/17 08:59 05/27/17 08:48 180 MG Furosemide (Lasix Tab) 20 mg DAILY PO 05/25/17 09:00 06/24/17 08:59 05/27/17 08:49 20 MG Levothyroxine Sodium (Synthroid Tab) 25 mcg DAILYBB PO 05/25/17 06:00 06/24/17 06:59 05/27/17 06:02 25 MCG Levothyroxine Sodium (Synthroid Tab) 200 mcg DAILYBB PO 05/25/17 06:00 06/24/17 06:59 05/27/17 06:02 200 MCG Multivitamins (Multivitamin Tab) 1 tab QAM PO 05/25/17 09:00 06/24/17 08:59 05/27/17 08:50 1 TAB Polyethylene (Miralax Powder Packet) 17 gm DAILY PRN PO 05/24/17 15:15 06/23/17 15:14 05/25/17 19:46 17 GM Multivitamins/ Minerals (Multivitamin W/ Minerals Tab) 1 tab DAILY PO 05/25/17 09:00 06/24/17 08:59 05/27/17 08:49 1 TAB Pantoprazole Sodium (Protonix Tab) 40 mg QAM PO 05/25/17 09:00 06/24/17 08:59 05/27/17 08:49 40 MG Gadobutrol (Gadavist) 7 mmol UD PRN IV 05/24/17 17:45 05/28/17 17:44 Miscellaneous Information (Order Awaiting Action) 1 ea QS N/A 05/25/17 00:00 06/24/17 00:00 Loteprednol Etabonate (Lotemax 0.5%) 1 drops BID OP 05/25/17 21:00 06/24/17 20:59 05/27/17 08:48 1 DROPS Temazepam (Restoril Cap) 15 mg HS PRN PO 05/25/17 20:00 06/24/17 19:59 05/26/17 21:47 15 MG Warfarin Sodium (Coumadin Tab) 7.5 mg DAILY@16 PO 05/26/17 16:00 06/25/17 15:59 05/26/17 16:00 7.5 MG Losartan Potassium (coZAAR TAB) 50 mg QAM PO 05/27/17 09:00 06/26/17 08:59 05/27/17 08:49 50 MG Hydralazine HCl (Apresoline Tab) 50 mg TID PO 05/26/17 21:00 06/25/17 20:59 05/27/17 08:49 50 MG Metoprolol Tartrate (Lopressor Tab) 12.5 mg BID PO 05/27/17 21:00 06/26/17 20:59 Impression 86 year old female s/p right GROUP TEACHER territory infarct -left peripheral vision deficit Plan 1. known cardiac arrhythmias cardiology direct care 2. optimize HTN, LDL <70 3. medication management vs pacemaker -per cardiology note 4. on coumadin -will need optimized INR- current level 2.2 5. PT/OT speech for discharge needs 6. likely discharge to HS once cardiac issues are well managed I have seen and discussed above patient with Dr Sissy Salinas, neurology PT seen and examined, son reports some mild confusion and some paranoid ideology. Pt had a headache yesterday wo recurrence. CT head which I have reviewed shows no hemorrhagic transformation. On exam alert, and oriented x 3, fund of knowledge nml. Much less dense L homonymous hemianopsia, no asymmetry of strength. Imp embolic R GROUP TEACHER infarct, stable to improved. hx of tachy geraldo, on coumadin, optimize. Suspect confusion/mild paranoia which I did not witness may be related to a mild delirium related to hospitalization. None of her meds appear significantly different from preadmission, recommend monitoring, will likely respond spontaneously. Cont risk mod, goal LDL <70. Pt should see us in follow-up post discharge. RASHAD Salinas MD
[2017-05-27] MEDS: WARFARIN SOD 7.5 MG TAB PO SCH (16:58)
[2017-05-27] MEDS: DIGOXIN 0.125 MG TAB PO SCH (16:58)
--- NOTE | 2017-05-27 20:50 | Progress Note ---
Medicine Progress Note Date & Time of Visit: May 27, 2017 at ~ 19:00 . Subjective Mild headache this morning, resolved. Visual difficulties about the same. No new neurologic symptoms. Noted to have ongoing bradycardia with pauses up to 3-4 seconds on telemetry; other times, tachycardic. No chest pain, dyspnea, lightheadedness, syncope. No nausea or vomiting. No bowel movement today. No dysuria. . Objective Last 8 Hrs Date Time Temp Pulse Resp B/P (MAP) Pulse Ox O2 Delivery O2 Flow Rate FiO2 05/27/17 20:11 37.0 87 19 150/69 (96) 93 Room Air 05/27/17 19:56 78 16 98 Nasal Cannula 2.0 05/27/17 18:00 96 Nasal Cannula 2.0 05/27/17 16:58 85 05/27/17 16:00 Nasal Cannula 2.0 05/27/17 15:17 37.1 85 18 125/78 (94) 91 Room Air Physical Exam: General- lying in bed, no distress Neck- no JVD Lungs- clear Heart- irregular, II/ systolic murmur at base Abdomen- + BS, soft, nontender Extremities- trace pretibial edema, no calf tenderness Neuro- alert; EOMI; mild left facial palsy; no dysarthria; motor strength upper and lower extremities 4+/5 bilat . Laboratory Results: Last 24 Hours Test 05/27/17 05:49 Prothrombin Time 24.3 SECONDS Prothromb Time International Ratio 2.2 Assessment & Plan STROKE CT demonstrated ischemic right occipital stroke in COMMUNITY SERVICE REPRESENTATIVE territory. Probable embolic stroke due to underlying atrial fibrillation or mechanical aortic valve prosthesis. INR 2.2 at time of admission. Not candidate for TPA due to warfarin therapy and duration of symptoms. Chronic AF. Mechanical AVR. MRA cervical vessels demonstrated poorly visualized left vertebral artery, patent carotid and right vertebral arteries. Echo - left atrium 4.6 cm, no apparent mural or valvular thrombi. Neuro consulted. Continued therapy with warfarin recommended. Try to maintain INR 2 - 2.5 to prevent subsequent embolic events while minimizing risk for hemorrhagic transformation. No heparin or anti-platelet meds due to high risk of hemorrhagic transformation. No hemorrhage on f/u CT 05/26. 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 CHRONIC LEFT VENTRICULAR DIASTOLIC HEART FAILURE Compensated. Continue furosemide. CHRONIC ATRIAL FIBRILLATION / TACHYBRADY SYNDROME Marked bradycardic at times, especially when sleeping. Cardiology consulted. Metoprolol succinate dose decreased. Digoxin continued. Continue warfarin. Normally, pacemaker would be considered for tachybradycardia syndrome. However, timing at this time nonideal due to acute embolic stroke and need to maintain anticoagulation. Continue cardiac monitoring. MECHANICAL AORTIC VALVE REPLACEMENT INR goal 2.5-3.0 (lower half of therapeutic range); today = 2.2. Titrate warfarin. LUNG MASS CT 04/01/17 demonstrated enlarging RUL mass worrisome for malignancy. Followed by Dr. Carrillo. Patient has opted not to pursue further evaluation. GERD Continue PPI. VTE PROPHYLAXIS Continue warfarin. SCD's until INR therapeutic. Ambulate as able. DISPOSITION Case Management consulted. Anticipated transfer to [facility] for inpatient rehabilitation when medical status stable. Patient plans on staying with her [facility] and [place] after she completes rehabilitation. Family Medicine follow-up with Dr. Triston Adame. . Consultants: Neuro Cardiology . Procedures: CT head MRI brain MRA neck MRA head echo cardiac monitoring PT OT LPN [employer] . Current Inpatient Medications: Current Inpatient Medications Medications (Trade) Dose Ordered Sig/Laura Route Start Time Stop Time Status Last Admin Dose Admin Acetaminophen (Tylenol Tab) 650 mg Q4H PRN PO 05/24/17 14:45 06/23/17 14:44 05/24/17 22:04 650 MG Ondansetron HCl (Zofran Inj) 4 mg Q6H PRN IV 05/24/17 14:45 06/23/17 14:44 Albuterol Sulfate (Ventolin 0.083% 2.5MG/3ML Neb) 2.5 mg BIDR INH 05/24/17 20:00 06/23/17 20:59 05/27/17 19:56 2.5 MG Ascorbic Acid (Vitamin C Tab) 500 mg QAM PO 05/25/17 09:00 06/24/17 08:59 05/27/17 08:49 500 MG Atorvastatin Calcium (Lipitor Tab) 30 mg QPM PO 05/24/17 21:00 06/23/17 20:59 05/26/17 19:42 30 MG Calcium/Vitamin D (Caltrate Plus Tab) 2 tab DAILYBL PO 05/25/17 11:00 06/24/17 10:59 05/27/17 11:51 2 TAB Digoxin (Lanoxin Tab) 0.125 mg DAILY@1600 PO 05/24/17 16:00 06/23/17 15:59 05/27/17 16:58 0.125 MG Fexofenadine HCl (Allison Tab) 180 mg QAM PO 05/25/17 09:00 06/24/17 08:59 05/27/17 08:48 180 MG Furosemide (Lasix Tab) 20 mg DAILY PO 05/25/17 09:00 06/24/17 08:59 05/27/17 08:49 20 MG Levothyroxine Sodium (Synthroid Tab) 25 mcg DAILYBB PO 05/25/17 06:00 06/24/17 06:59 05/27/17 06:02 25 MCG Levothyroxine Sodium (Synthroid Tab) 200 mcg DAILYBB PO 05/25/17 06:00 06/24/17 06:59 05/27/17 06:02 200 MCG Multivitamins (Multivitamin Tab) 1 tab QAM PO 05/25/17 09:00 06/24/17 08:59 05/27/17 08:50 1 TAB Polyethylene (Miralax Powder Packet) 17 gm DAILY PRN PO 05/24/17 15:15 06/23/17 15:14 05/25/17 19:46 17 GM Multivitamins/ Minerals (Multivitamin W/ Minerals Tab) 1 tab DAILY PO 05/25/17 09:00 06/24/17 08:59 05/27/17 08:49 1 TAB Pantoprazole Sodium (Protonix Tab) 40 mg QAM PO 05/25/17 09:00 06/24/17 08:59 05/27/17 08:49 40 MG Gadobutrol (Gadavist) 7 mmol UD PRN IV 05/24/17 17:45 05/28/17 17:44 Miscellaneous Information (Order Awaiting Action) 1 ea QS N/A 05/25/17 00:00 06/24/17 00:00 Loteprednol Etabonate (Lotemax 0.5%) 1 drops BID OP 05/25/17 21:00 06/24/17 20:59 05/27/17 08:48 1 DROPS Temazepam (Restoril Cap) 15 mg HS PRN PO 05/25/17 20:00 06/24/17 19:59 05/26/17 21:47 15 MG Warfarin Sodium (Coumadin Tab) 7.5 mg DAILY@16 PO 05/26/17 16:00 06/25/17 15:59 05/27/17 16:58 7.5 MG Losartan Potassium (coZAAR TAB) 50 mg QAM PO 05/27/17 09:00 06/26/17 08:59 05/27/17 08:49 50 MG Hydralazine HCl (Apresoline Tab) 50 mg TID PO 05/26/17 21:00 06/25/17 20:59 05/27/17 14:12 50 MG Metoprolol Tartrate (Lopressor Tab) 12.5 mg BID PO 05/27/17 21:00 06/26/17 20:59 Senna/Docusate Sodium (Senokot S Tab) 1 tab BID PO 05/27/17 21:00 06/26/17 20:59
[2017-05-27] MEDS: ATORVASTATIN 20 MG TAB PO SCH (21:34)
[2017-05-27] MEDS: METOPROLOL TARTRATE 25 MG TAB PO SCH (21:34)
[2017-05-27] MEDS: DOCUSATE SODIUM/SENNA 50/8.6MG TAB PO SCH (21:34)
[2017-05-27] MEDS: TEMAZEPAM 15 MG CAP PO PRN (23:29)
[2017-05-28] VITALS (8 sets, daily range): BP systolic 115–163; BP diastolic 60–87; PULSE 64–95; TEMP 36.4–37.2; O2SAT 92–99
[2017-05-28] MEDS: LEVOTHYROXINE 200 MCG TAB PO SCH (05:33)
[2017-05-28] MEDS: LEVOTHYROXINE 25 MCG TAB PO SCH (05:33)
[2017-05-28 06:16] LABS: INR 2.2 (0.9-1.1); PROTHROMBIN TIME (PATIENT) 24.8 SECONDS (9.0-12.0)
[2017-05-28] MEDS: ALBUTEROL 0.083% NEBU SOLN 3 ML VIAL INH SCH ×2 (07:04→18:51)
[2017-05-28] MEDS: UMECLIDINIUM-VILANTEROL (ANORO) INH SCH (08:10)
[2017-05-28] MEDS: LOTEPREDNOL ETABONATE 0.5% OP SCH ×2 (08:10→20:46)
[2017-05-28] MEDS: DOCUSATE SODIUM/SENNA 50/8.6MG TAB PO SCH ×2 (08:10→20:45)
[2017-05-28] MEDS: FUROSEMIDE 20 MG TAB PO SCH (08:11)
[2017-05-28] MEDS: ASCORBIC ACID 500 MG TAB PO SCH (08:11)
[2017-05-28] MEDS: METOPROLOL TARTRATE 25 MG TAB PO SCH ×2 (08:11→20:45)
[2017-05-28] MEDS: CEROVITE ADV FORMULA TAB PO SCH (08:11)
[2017-05-28] MEDS: LOSARTAN POTASSIUM 50 MG TAB PO SCH (08:11)
[2017-05-28] MEDS: FEXOFENADINE HCL 180 MG TAB PO SCH (08:11)
[2017-05-28] MEDS: MULTIVITAMIN TAB PO SCH (08:11)
[2017-05-28] MEDS: PANTOprazole SOD 40 MG TAB PO SCH (08:12)
--- NOTE | 2017-05-28 10:42 | Cardiology Follow-Up ---
Subjective General Date of Service: May 28, 2017. Chief Complaint: follow up tachy geraldo syndrome Pt evaluation today including: conversation w/ patient, physical exam History of Present Illness The patient is a 86 year old female seen in follow up. Patient feels well without complaints except fatigue. Her visual deficit remains unchanged. Telemetry reveals continued AF, 70-78 bpm at rest in bed, 110's with activity such as going to BR, and continued frequent pauses since I saw her yesterday up to 3.7 seconds, both at night during sleep and during the day. Her INR =2.2 today. Allergies Coded Allergies: BEE STING (Verified Allergy, Intermediate, rash and site/generalized swelling, 05/24/17) Adhesives (Verified Allergy, Mild, RASH, 05/24/17) Amlodipine (Verified Allergy, Mild, unknown, 05/24/17) Azithromycin (Verified Allergy, Mild, counteraction with breathing medication, 11/10/16) Cephalosporins (Verified Allergy, Mild, unknown, 05/24/17) Sulfa Antibiotics (Verified Allergy, Mild, RASH, 05/24/17) Tetanus Toxoid (Verified Allergy, Mild, generalized swelling and rash, ) Cephalexin (Verified Allergy, Unknown, unknown, 05/24/17) Penicillins (Verified Allergy, Unknown, RASH WITH WELTS, 05/24/17) Fluvastatin (Verified Adverse Reaction, Intermediate, severe myalgias, ) Meperidine (Verified Adverse Reaction, Intermediate, Hallucinations, ) Zolpidem (Verified Adverse Reaction, Intermediate, Severe confusion and disorientation, 05/24/17) Simvastatin (Verified Adverse Reaction, Mild, Muscle Aches, 05/24/17) Iodinated Diagnostic Agents (Verified Adverse Reaction, Unknown, INCREASED BLOOD PRESSURE, 05/24/17) Prednisone (Verified Adverse Reaction, Unknown, sensitive side effects - try not to use, 05/24/17) Social History Smoking Status: Former Smoker Hx Tobacco Use In Past Year?: No Hx Alcohol Use - Type And Amou: No Hx Substance Use - Type And Am: No Problem List Medical Problems: (1) Confusion Status: Acute (2) Hypoxia Status: Acute (3) Pneumonia Status: Acute Physical Exam Vital Signs Last Vital Signs Documentation Date Time Temp Pulse Resp B/P (MAP) Pulse Ox O2 Delivery O2 Flow Rate FiO2 05/28/17 08:12 37.2 75 19 130/87 (101) 98 Room Air 05/28/17 07:04 2.0 Physical Exam Constitutional: Level of Distress: NAD Neck: supple Lungs: Auscultation: no wheezing, no rales/crackles Cardiovascular: Heart Auscultation: irregular rate rhythm, pertinent finding (prosthetic heart sounds noted) Assessment and Plan Assessment and Plan Impression: 86-year-old right handed female 1. Chronic persistent atrial fibrillation, with tachycardia bradycardia syndrome, multiple asymptomatic pauses in the range of 2.5-4 seconds 2. Admission for acute right occipital lobe stroke in the setting of mildly subtherapeutic international normalized ratio and mechanical AVR chronic atrial fibrillation 3. Elevated velocities 3.9-4 m/s across the prosthetic aortic valve suggestive of borderline prosthetic obstruction to prosthetic obstruction 4. Moderate concentric left ventricular hypertrophy, with normal resting wall motion normal LVEF, moderate mitral calcification, tricuspid regurgitation, mitral regurgitation 5. History of 6.6 x 3.7 right lower lobe lung mass being followed clinically patient declining further invasive therapy for this 6. History of right breast carcinoma, underwent left partial mastectomy and left axilary sentinel LN biopsy 12/28/2011. Dike LN biopsy was negative, required not additional LN resection. Reviewed [address] Lomax of general surgery who performed the procedure, who felt there was no contraindication to left sided pacer. Plan: Patient is asymptomatic from the pauses at present, however, compared to past monitor data, this is certainly a progression of her conduction system disease compared to one year ago. Recommend implant of a single chamber permanent pacemaker to avoid future bradycardic emergency. Continue current coumadin dose. NPO after MN except medications. Pt to be assessed by Dr Arteaga on 05/29/17 for consideration of PPM. Discussed case with daughter, Britt, who is agreeable to procedure. Sherry Contreras DO Laboratory Results Last 24 Hours Test 05/28/17 05:55 Prothrombin Time 24.8 SECONDS Prothromb Time International Ratio 2.2
[2017-05-28] MEDS: CALCIUM 600MG + VIT D 400 IU TAB PO SCH (11:37)
--- NOTE | 2017-05-28 12:53 | Neurology Progress Notes ---
Neurology Progress Note Date of Service May 28, 2017. Subjective PT has no complaints. NO headache today, no new weakness or numbness. Leg felt a little "wobbly" with walking but not lightheaded. Objective Date Time Temp Pulse Resp B/P (MAP) Pulse Ox O2 Delivery O2 Flow Rate FiO2 05/28/17 12:12 36.4 95 18 117/60 (79) 92 Room Air 05/28/17 08:12 37.2 75 19 130/87 (101) 98 Room Air 05/28/17 07:04 74 16 98 Nasal Cannula 2.0 05/28/17 04:26 36.7 64 19 144/69 (94) 96 Room Air 05/28/17 04:25 Nasal Cannula 2.0 05/28/17 00:20 Nasal Cannula 2.0 05/27/17 23:07 37.1 70 18 131/62 (85) 95 Room Air 05/27/17 20:15 Room Air 05/27/17 20:11 37.0 87 19 150/69 (96) 93 Room Air 05/27/17 19:56 78 16 98 Nasal Cannula 2.0 05/27/17 18:00 96 Nasal Cannula 2.0 05/27/17 16:58 85 05/27/17 16:00 Nasal Cannula 2.0 05/27/17 15:17 37.1 85 18 125/78 (94) 91 Room Air Last 24 Hours Test 05/28/17 05:55 Prothrombin Time 24.8 SECONDS Prothromb Time International Ratio 2.2 Exam: Pt awake and alert, no speech or language deficit. Patchy nonhomonymous hemianopsia. Mild flattening of the L NLF. Speech clear. UE and LE strength symmetric, no drift, equal TATY. FNF HS are normal. Gait unremarkable with walker and my assistance. Current Inpatient Medications Medications (Trade) Dose Ordered Sig/Laura Route Start Time Stop Time Status Last Admin Dose Admin Acetaminophen (Tylenol Tab) 650 mg Q4H PRN PO 05/24/17 14:45 06/23/17 14:44 05/24/17 22:04 650 MG Ondansetron HCl (Zofran Inj) 4 mg Q6H PRN IV 05/24/17 14:45 06/23/17 14:44 Albuterol Sulfate (Ventolin 0.083% 2.5MG/3ML Neb) 2.5 mg BIDR INH 05/24/17 20:00 06/23/17 20:59 05/28/17 07:04 2.5 MG Ascorbic Acid (Vitamin C Tab) 500 mg QAM PO 05/25/17 09:00 06/24/17 08:59 05/28/17 08:11 500 MG Atorvastatin Calcium (Lipitor Tab) 30 mg QPM PO 05/24/17 21:00 06/23/17 20:59 05/27/17 21:34 30 MG Calcium/Vitamin D (Caltrate Plus Tab) 2 tab DAILYBL PO 05/25/17 11:00 06/24/17 10:59 05/28/17 11:37 2 TAB Digoxin (Lanoxin Tab) 0.125 mg DAILY@1600 PO 05/24/17 16:00 06/23/17 15:59 05/27/17 16:58 0.125 MG Fexofenadine HCl (Allison Tab) 180 mg QAM PO 05/25/17 09:00 06/24/17 08:59 05/28/17 08:11 180 MG Furosemide (Lasix Tab) 20 mg DAILY PO 05/25/17 09:00 06/24/17 08:59 05/28/17 08:11 20 MG Levothyroxine Sodium (Synthroid Tab) 25 mcg DAILYBB PO 05/25/17 06:00 06/24/17 06:59 05/28/17 05:33 25 MCG Levothyroxine Sodium (Synthroid Tab) 200 mcg DAILYBB PO 05/25/17 06:00 06/24/17 06:59 05/28/17 05:33 200 MCG Multivitamins (Multivitamin Tab) 1 tab QAM PO 05/25/17 09:00 06/24/17 08:59 05/28/17 08:11 1 TAB Polyethylene (Miralax Powder Packet) 17 gm DAILY PRN PO 05/24/17 15:15 06/23/17 15:14 05/25/17 19:46 17 GM Multivitamins/ Minerals (Multivitamin W/ Minerals Tab) 1 tab DAILY PO 05/25/17 09:00 06/24/17 08:59 05/28/17 08:11 1 TAB Pantoprazole Sodium (Protonix Tab) 40 mg QAM PO 05/25/17 09:00 06/24/17 08:59 05/28/17 08:12 40 MG Gadobutrol (Gadavist) 7 mmol UD PRN IV 05/24/17 17:45 05/28/17 17:44 Miscellaneous Information (Order Awaiting Action) 1 ea QS N/A 05/25/17 00:00 06/24/17 00:00 Loteprednol Etabonate (Lotemax 0.5%) 1 drops BID OP 05/25/17 21:00 06/24/17 20:59 05/28/17 08:10 1 DROPS Temazepam (Restoril Cap) 15 mg HS PRN PO 05/25/17 20:00 06/24/17 19:59 05/27/17 23:29 15 MG Warfarin Sodium (Coumadin Tab) 7.5 mg DAILY@16 PO 05/26/17 16:00 06/25/17 15:59 05/27/17 16:58 7.5 MG Losartan Potassium (coZAAR TAB) 50 mg QAM PO 05/27/17 09:00 06/26/17 08:59 05/28/17 08:11 50 MG Hydralazine HCl (Apresoline Tab) 50 mg TID PO 05/26/17 21:00 06/25/17 20:59 05/28/17 08:10 50 MG Metoprolol Tartrate (Lopressor Tab) 12.5 mg BID PO 05/27/17 21:00 06/26/17 20:59 05/28/17 08:11 12.5 MG Senna/Docusate Sodium (Senokot S Tab) 1 tab BID PO 05/27/17 21:00 06/26/17 20:59 05/28/17 08:10 1 TAB 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 Pt is clinically stable. Would check orthostatics re pt complaint of being "wobbly". Suspect she is mildly generally weak due to disuse. Continue PT. Pt is sched for PPM within next day or two. RASHAD Salinas MD
--- NOTE | 2017-05-28 16:04 | Progress Note ---
Internal Med Progress Note Date of Service: May 28, 2017. Provider Documentation: SUBJECTIVE: Patient is alert/awake and is sitting in her chair in no apparent distress. She answers my simple questions appropriately.Intermittent headache without any nausea/vomiting. OBJECTIVE: Vital Signs-as noted below Examination: General- Alert/Awake, Sitting in the chair in no distress Neck- Supple, Midline trachea,no JVD Lungs- B/L clear to auscultation Heart- irregular, II/ systolic murmur at base Abdomen- + BS, soft, nontender Extremities- trace pretibial edema, no calf tenderness Neuro- alert; EOMI; mild left facial palsy; no dysarthria; motor strength upper and lower extremities 4+/5 bilat Lab data as noted below. ASSESSMENT & PLAN: Acute CVA: CT demonstrated ischemic right occipital stroke in [employer] territory. Probable embolic stroke due to underlying atrial fibrillation or mechanical aortic valve prosthesis.INR 2.2 at time of admission. Not candidate for TPA due to warfarin therapy and duration of symptoms.Chronic AF. Mechanical AVR. -MRA cervical vessels demonstrated poorly visualized left vertebral artery, patent carotid and right vertebral arteries. -Echo - left atrium 4.6 cm, no apparent mural or valvular thrombi. -Neurology consult reviewed and following the patient. -Continued therapy with warfarin recommended. -Trying to maintain INR 2 - 2.5 to prevent subsequent embolic events while minimizing risk for hemorrhagic transformation. -No heparin or anti-platelet meds due to high risk of hemorrhagic transformation. -No hemorrhage on f/u CT 05/26. -PT, OT, Speech Therapy. Chronic Atrial Fibrillation/tachybrady Syndrome: Marked bradycardic at times, especially when sleeping. -Cardiology consulted and are following the patient -Metoprolol succinate dose decreased. -Digoxin continued. -Continue warfarin. -PPM being planned Chronic Left ventricular Diastolic Heart failure: Stable. -Continue furosemide. -Monitor I's & O's. History GERD: Stable.Continue PPI. Mechanical Aortic Valve Replacement: INR goal 2.5-3.0 (lower half of therapeutic range); today = 2.2. -Titrate warfarin. Lung Mass: CT 04/01/17 demonstrated enlarging RUL mass worrisome for malignancy. Followed by Dr. Carrillo.Patient has opted not to pursue further evaluation. VTE Prophylaxis: Continue warfarin. Disposition: Case Management consulted. Anticipated transfer to [facility] for inpatient rehabilitation when medical status stable. Patient plans on staying with her [facility] and [place] after she completes rehabilitation. Family Medicine follow-up with Dr. Triston Adame. Vital Signs: Date Time Temp Pulse Resp B/P (MAP) Pulse Ox O2 Delivery O2 Flow Rate FiO2 05/28/17 12:12 36.4 95 18 117/60 (79) 92 Room Air 05/28/17 12:00 Room Air 05/28/17 08:12 37.2 75 19 130/87 (101) 98 Room Air 05/28/17 08:00 98 Room Air 05/28/17 07:04 74 16 98 Nasal Cannula 2.0 05/28/17 04:26 36.7 64 19 144/69 (94) 96 Room Air 05/28/17 04:25 Nasal Cannula 2.0 05/28/17 00:20 Nasal Cannula 2.0 05/27/17 23:07 37.1 70 18 131/62 (85) 95 Room Air 05/27/17 20:15 Room Air 05/27/17 20:11 37.0 87 19 150/69 (96) 93 Room Air 05/27/17 19:56 78 16 98 Nasal Cannula 2.0 05/27/17 18:00 96 Nasal Cannula 2.0 05/27/17 16:58 85 Lab Results: Results Past 24 Hours Test 05/28/17 05:55 Range/Units Prothrombin Time 24.8 9.0-12.0 SECONDS Prothromb Time International Ratio 2.2 0.9-1.1
[2017-05-28] MEDS: WARFARIN SOD 7.5 MG TAB PO SCH (17:22)
[2017-05-28] MEDS: DIGOXIN 0.125 MG TAB PO SCH (17:22)
[2017-05-28] MEDS: ATORVASTATIN 20 MG TAB PO SCH (20:46)
[2017-05-29] VITALS (10 sets, daily range): BP systolic 116–144; BP diastolic 55–85; PULSE 61–93; TEMP 36.5–37.3; O2SAT 92–99
[2017-05-29] MEDS ORDERED: LORAZEPAM 2 MG/ML 1 ML VIAL IV STA (01:04)
[2017-05-29] MEDS: TEMAZEPAM 15 MG CAP PO PRN ×2 (01:40→21:05)
[2017-05-29] MEDS: LEVOTHYROXINE 25 MCG TAB PO SCH (05:37)
[2017-05-29] MEDS: LEVOTHYROXINE 200 MCG TAB PO SCH (05:37)
[2017-05-29] MEDS: ALBUTEROL 0.083% NEBU SOLN 3 ML VIAL INH SCH ×2 (07:07→18:58)
[2017-05-29 07:25] LABS: BASO % 0.3 %; BASO ABS # 0.02 K/uL (0-0.2); COMPLETE YES; EOS % 1.7 %; HEMATOCRIT 43.3 % (37-47); LYMPH % 16.8 %; LYMPH ABS # 0.97 K/uL (1.2-3.4); MEAN CORPUSCULAR HEMOGLOBIN 32.8 pg (25-34); MEAN CORPUSCULAR HGB CONC 34.2 g/dl (32-36); MEAN PLATELET VOLUME 10.4 fL (7.4-10.4); MONO % 9.7 %; NEUT % 71.5 %; PLATELET COUNT 174 K/uL (130-400); RED BLOOD COUNT 4.51 M/uL (4.2-5.4); WHITE BLOOD COUNT 5.78 K/uL (4.8-10.8)
[2017-05-29 07:36] LABS: INR 2.3 (0.9-1.1); PROTHROMBIN TIME (PATIENT) 25.5 SECONDS (9.0-12.0)
[2017-05-29 07:48] LABS: BUN/CREATININE RATIO 26.3 (10-20); CALCIUM 10.1 mg/dl (8.5-10.1); CREATININE 0.72 mg/dl (0.60-1.20); POTASSIUM 3.8 mmol/L (3.5-5.1)
[2017-05-29] MEDS: UMECLIDINIUM-VILANTEROL (ANORO) INH SCH (08:42)
[2017-05-29] MEDS: LOTEPREDNOL ETABONATE 0.5% OP SCH ×2 (08:43→21:05)
[2017-05-29] MEDS: LOSARTAN POTASSIUM 50 MG TAB PO SCH (08:43)
[2017-05-29] MEDS: FEXOFENADINE HCL 180 MG TAB PO SCH (08:43)
[2017-05-29] MEDS: PANTOprazole SOD 40 MG TAB PO SCH (08:44)
[2017-05-29] MEDS: METOPROLOL TARTRATE 25 MG TAB PO SCH ×2 (08:44→21:03)
[2017-05-29] MEDS: FUROSEMIDE 20 MG TAB PO SCH (08:44)
[2017-05-29] MEDS: MULTIVITAMIN TAB PO SCH (08:44)
[2017-05-29] MEDS: DOCUSATE SODIUM/SENNA 50/8.6MG TAB PO SCH ×2 (08:44→21:03)
[2017-05-29] MEDS: ASCORBIC ACID 500 MG TAB PO SCH (08:44)
[2017-05-29] MEDS: CEROVITE ADV FORMULA TAB PO SCH (08:44)
[2017-05-29] MEDS ORDERED: NURSING VERBAL MED ORDER ONE (10:15)
[2017-05-29] MEDS ORDERED: CLINDAMYCIN IV 600 MG in DEXTROSE 5% ADD-VANTAGE 50ML 50 ML IV SCH (10:30)
--- NOTE | 2017-05-29 10:37 | Progress Note ---
Internal Med Progress Note Date of Service: May 29, 2017. Provider Documentation: SUBJECTIVE: Patient is alert/awake and is lying in her bed in no apparent distress. She answers my simple questions appropriately.Intermittent headache without any nausea/vomiting. No other new change overnight. OBJECTIVE: Vital Signs-as noted below Examination: General- Alert/Awake, Sitting in the chair in no distress Neck- Supple, Midline trachea,no JVD Lungs- B/L clear to auscultation Heart- irregular, II/ systolic murmur at base Abdomen- + BS, soft, nontender Extremities- trace pretibial edema, no calf tenderness Neuro- alert; EOMI; mild left facial palsy; no dysarthria; motor strength upper and lower extremities 4+/5 bilat Lab data as noted below. ASSESSMENT & PLAN: Acute CVA: CT demonstrated ischemic right occipital stroke in [employer] territory. Probable embolic stroke due to underlying atrial fibrillation or mechanical aortic valve prosthesis.INR 2.2 at time of admission. Not candidate for TPA due to warfarin therapy and duration of symptoms.Chronic AF. Mechanical AVR. -MRA cervical vessels demonstrated poorly visualized left vertebral artery, patent carotid and right vertebral arteries. -Echo - left atrium 4.6 cm, no apparent mural or valvular thrombi. -Neurology consult reviewed and following the patient. -Continued therapy with warfarin recommended. -Trying to maintain INR 2 - 2.5 to prevent subsequent embolic events while minimizing risk for hemorrhagic transformation. -No heparin or anti-platelet meds due to high risk of hemorrhagic transformation. -No hemorrhage on f/u CT 05/26. -PT, OT, Speech Therapy. Chronic Atrial Fibrillation/tachybrady Syndrome: Marked bradycardic at times, especially when sleeping. -Cardiology consulted and are following the patient -Metoprolol succinate dose decreased. -Digoxin continued. -Continue warfarin. -PPM being planned. Awaiting evaluation by Dr. Shah. Chronic Left ventricular Diastolic Heart failure: Stable. -Continue furosemide. -Monitor I's & O's. History GERD: Stable.Continue PPI. Mechanical Aortic Valve Replacement: INR goal 2.5-3.0 (lower half of therapeutic range); today = 2.2. -Titrate warfarin. Lung Mass: CT 04/01/17 demonstrated enlarging RUL mass worrisome for malignancy. Followed by Dr. Carrillo.Patient has opted not to pursue further evaluation. VTE Prophylaxis: Continue warfarin. Disposition: Case Management consulted. Anticipated transfer to [facility] for inpatient rehabilitation when medical status stable. Patient plans on staying with her [facility] and [place] after she completes rehabilitation. Family Medicine follow-up with Dr. Triston Adame. Vital Signs: Date Time Temp Pulse Resp B/P (MAP) Pulse Ox O2 Delivery O2 Flow Rate FiO2 05/29/17 07:54 37.0 74 18 134/83 (100) 96 05/29/17 07:07 76 15 96 Room Air 05/29/17 05:38 36.7 64 18 139/76 (97) 92 Room Air 05/29/17 04:00 Room Air 05/28/17 23:59 Room Air 05/28/17 23:08 36.4 69 19 163/79 (107) 93 Room Air 05/28/17 20:00 Room Air 05/28/17 18:51 70 16 94 Room Air 05/28/17 18:51 36.7 73 22 135/76 (95) 99 Room Air 05/28/17 17:22 80 05/28/17 16:00 Room Air 05/28/17 15:22 36.8 18 115/76 (89) 93 Room Air 05/28/17 12:12 36.4 95 18 117/60 (79) 92 Room Air 05/28/17 12:00 Room Air Lab Results: Results Past 24 Hours Test 05/29/17 06:55 Range/Units White Blood Count 5.78 4.8-10.8 K/uL Red Blood Count 4.51 4.2-5.4 M/uL Hemoglobin 14.8 12.0-16.0 g/dL Hematocrit 43.3 37-47 % Mean Corpuscular Volume 96.0 80-100 fL Mean Corpuscular Hemoglobin 32.8 25-34 pg Mean Corpuscular Hemoglobin Concent 34.2 32-36 g/dl Platelet Count 174 130-400 K/uL Mean Platelet Volume 10.4 7.4-10.4 fL Neutrophils (%) (Auto) 71.5 % Lymphocytes (%) (Auto) 16.8 % Monocytes (%) (Auto) 9.7 % Eosinophils (%) (Auto) 1.7 % Basophils (%) (Auto) 0.3 % Neutrophils # (Auto) 4.13 1.4-6.5 K/uL Lymphocytes # (Auto) 0.97 1.2-3.4 K/uL Monocytes # (Auto) 0.56 0.11-0.59 K/uL Eosinophils # (Auto) 0.10 0-0.5 K/uL Basophils # (Auto) 0.02 0-0.2 K/uL RDW Standard Deviation 42.6 36.4-46.3 fL RDW Coefficient of Variation 12.1 11.5-14.5 % Immature Granulocyte % (Auto) 0.0 % Immature Granulocyte # (Auto) 0.00 0.00-0.02 K/uL Prothrombin Time 25.5 9.0-12.0 SECONDS Prothromb Time International Ratio 2.3 0.9-1.1 Sodium Level 141 136-145 mmol/L Potassium Level 3.8 3.5-5.1 mmol/L Chloride Level 107 98-107 mmol/L Carbon Dioxide Level 27 21-32 mmol/L Anion Gap 7.0 3-11 mmol/L Blood Urea Nitrogen 19 7-18 mg/dl Creatinine 0.72 0.60-1.20 mg/dl Est Creatinine Clear Calc Drug Dose 52.5 ml/min Estimated GFR () 87.9 Estimated GFR (Non- 75.8 BUN/Creatinine Ratio 26.3 10-20 Random Glucose 109 70-99 mg/dl Calcium Level 10.1 8.5-10.1 mg/dl
[2017-05-29] MEDS: CALCIUM 600MG + VIT D 400 IU TAB PO SCH (12:10)
--- NOTE | 2017-05-29 15:56 | Neurology Progress Notes ---
Neurology Progress Note Date of Service May 29, 2017. Bhavik Fuller is a 86 year old female who presents to the ER with reports of headache and vision problems. She states she woke with a frontal headache and vision impairment. She pressed her medical alert and told them to send her daughter. The headache was around her right eye. She has macular degeneration so her vision is already impaired but when this first happened she couldn't see at all. She states she still has numbness in her right GT. She had difficulty walking but it was due to the vision disturbance. She was found to have a right [employer] territory infarct. She states Dr Contreras was in this am and he is debating on a pacemaker vs medication control. Today she states she had a brief headache this am but it went away. Once they get her heart medications adjusted she will go to . She had been up and walking with physical therapy and doing well. denies current CP, SOB, abdominal pain, weakness, swallowing difficulties, new vision changes, slurred speech, N, V. Objective Date Time Temp Pulse Resp B/P (MAP) Pulse Ox O2 Delivery O2 Flow Rate FiO2 05/29/17 12:24 36.9 81 16 124/76 (92) 96 05/29/17 12:00 96 Room Air 05/29/17 08:00 96 Room Air 05/29/17 07:54 37.0 74 18 134/83 (100) 96 05/29/17 07:07 76 15 96 Room Air 05/29/17 05:38 36.7 64 18 139/76 (97) 92 Room Air 05/29/17 04:00 Room Air 05/28/17 23:59 Room Air 05/28/17 23:08 36.4 69 19 163/79 (107) 93 Room Air 05/28/17 20:00 Room Air 05/28/17 18:51 70 16 94 Room Air 05/28/17 18:51 36.7 73 22 135/76 (95) 99 Room Air 05/28/17 17:22 80 05/28/17 16:00 Room Air Last 24 Hours Test 05/29/17 06:55 White Blood Count 5.78 K/uL Red Blood Count 4.51 M/uL Hemoglobin 14.8 g/dL Hematocrit 43.3 % Mean Corpuscular Volume 96.0 fL Mean Corpuscular Hemoglobin 32.8 pg Mean Corpuscular Hemoglobin Concent 34.2 g/dl Platelet Count 174 K/uL Mean Platelet Volume 10.4 fL Neutrophils (%) (Auto) 71.5 % Lymphocytes (%) (Auto) 16.8 % Monocytes (%) (Auto) 9.7 % Eosinophils (%) (Auto) 1.7 % Basophils (%) (Auto) 0.3 % Neutrophils # (Auto) 4.13 K/uL Lymphocytes # (Auto) 0.97 K/uL Monocytes # (Auto) 0.56 K/uL Eosinophils # (Auto) 0.10 K/uL Basophils # (Auto) 0.02 K/uL RDW Standard Deviation 42.6 fL RDW Coefficient of Variation 12.1 % Immature Granulocyte % (Auto) 0.0 % Immature Granulocyte # (Auto) 0.00 K/uL Prothrombin Time 25.5 SECONDS Prothromb Time International Ratio 2.3 Sodium Level 141 mmol/L Potassium Level 3.8 mmol/L Chloride Level 107 mmol/L Carbon Dioxide Level 27 mmol/L Anion Gap 7.0 mmol/L Blood Urea Nitrogen 19 mg/dl Creatinine 0.72 mg/dl Est Creatinine Clear Calc Drug Dose 52.5 ml/min Estimated GFR () 87.9 Estimated GFR (Non- 75.8 BUN/Creatinine Ratio 26.3 Random Glucose 109 mg/dl Calcium Level 10.1 mg/dl Imaging: no new imaging Exam: Physical Exam: Constitutional: appearance nourished, healthy and normal Ears, Nose, Mouth and Throat: mucous membranes moist, no injection and skin normal, eyes normal Cardiovascular: normal S-1 and S-2 and regular rate and rhythm Respiratory: clear to auscultation (CTA) and no rales, ronchi or wheeze Musculoskeletal: no peripheral edema and good distal pulses Skin: no stigmata of neurocutaneous disease noted and normal and intact Eyes: extraocular muscles intact (EOMI) and pupils equal, round and reactive to light (PERRL) NEUROLOGIC EXAMINATION: Mental status: Alert and interactive Oriented to full date and location Oriented to person Speech fluent with no evidence of aphasia Cranial Nerves Normal findings for Cranial Nerves II - XII Reflexes: Deep tendon reflexes were symmetrical and graded 2/5. Plantar responses were flexor. Sensory: no sensory deficits Coordination: Romberg absent Gait/Stance: Posture normal. Gait normal: with steady with steps, base, turning, heel and toe walking and tandem gait. Motor: Negative for pronator drift of out stretched arms with eyes closed. Strength: Normal - 5/5 all extremities Current Inpatient Medications Medications (Trade) Dose Ordered Sig/Laura Route Start Time Stop Time Status Last Admin Dose Admin Acetaminophen (Tylenol Tab) 650 mg Q4H PRN PO 05/24/17 14:45 06/23/17 14:44 05/24/17 22:04 650 MG Ondansetron HCl (Zofran Inj) 4 mg Q6H PRN IV 05/24/17 14:45 06/23/17 14:44 Albuterol Sulfate (Ventolin 0.083% 2.5MG/3ML Neb) 2.5 mg BIDR INH 05/24/17 20:00 06/23/17 20:59 05/29/17 07:07 2.5 MG Ascorbic Acid (Vitamin C Tab) 500 mg QAM PO 05/25/17 09:00 06/24/17 08:59 05/29/17 08:44 500 MG Atorvastatin Calcium (Lipitor Tab) 30 mg QPM PO 05/24/17 21:00 06/23/17 20:59 05/28/17 20:46 30 MG Calcium/Vitamin D (Caltrate Plus Tab) 2 tab DAILYBL PO 05/25/17 11:00 06/24/17 10:59 05/29/17 12:10 2 TAB Digoxin (Lanoxin Tab) 0.125 mg DAILY@1600 PO 05/24/17 16:00 06/23/17 15:59 05/28/17 17:22 0.125 MG Fexofenadine HCl (Allison Tab) 180 mg QAM PO 05/25/17 09:00 06/24/17 08:59 05/29/17 08:43 180 MG Furosemide (Lasix Tab) 20 mg DAILY PO 05/25/17 09:00 06/24/17 08:59 05/29/17 08:44 20 MG Levothyroxine Sodium (Synthroid Tab) 25 mcg DAILYBB PO 05/25/17 06:00 06/24/17 06:59 05/29/17 05:37 25 MCG Levothyroxine Sodium (Synthroid Tab) 200 mcg DAILYBB PO 05/25/17 06:00 06/24/17 06:59 05/29/17 05:37 200 MCG Multivitamins (Multivitamin Tab) 1 tab QAM PO 05/25/17 09:00 06/24/17 08:59 05/29/17 08:44 1 TAB Polyethylene (Miralax Powder Packet) 17 gm DAILY PRN PO 05/24/17 15:15 06/23/17 15:14 05/25/17 19:46 17 GM Multivitamins/ Minerals (Multivitamin W/ Minerals Tab) 1 tab DAILY PO 05/25/17 09:00 06/24/17 08:59 05/29/17 08:44 1 TAB Pantoprazole Sodium (Protonix Tab) 40 mg QAM PO 05/25/17 09:00 06/24/17 08:59 05/29/17 08:44 40 MG Miscellaneous Information (Order Awaiting Action) 1 ea QS N/A 05/25/17 00:00 06/24/17 00:00 Loteprednol Etabonate (Lotemax 0.5%) 1 drops BID OP 05/25/17 21:00 06/24/17 20:59 05/29/17 08:43 1 DROPS Temazepam (Restoril Cap) 15 mg HS PRN PO 05/25/17 20:00 06/24/17 19:59 05/29/17 01:40 15 MG Warfarin Sodium (Coumadin Tab) 7.5 mg DAILY@16 PO 05/26/17 16:00 06/25/17 15:59 05/28/17 17:22 7.5 MG Losartan Potassium (coZAAR TAB) 50 mg QAM PO 05/27/17 09:00 06/26/17 08:59 05/29/17 08:43 50 MG Hydralazine HCl (Apresoline Tab) 50 mg TID PO 05/26/17 21:00 06/25/17 20:59 05/29/17 14:03 50 MG Metoprolol Tartrate (Lopressor Tab) 12.5 mg BID PO 05/27/17 21:00 06/26/17 20:59 05/29/17 08:44 12.5 MG Senna/Docusate Sodium (Senokot S Tab) 1 tab BID PO 05/27/17 21:00 06/26/17 20:59 05/29/17 08:44 1 TAB Clindamycin Phosphate 600 mg/ Dextrose 54 ml @ 108 mls/hr TODAY@1030 IV 05/29/17 10:30 05/29/17 23:59 Impression 86 year old female s/p right [employer] territory infarct -left peripheral vision deficit Plan 1. known cardiac arrhythmias cardiology direct care 2. optimize HTN, LDL <70 3. medication management vs pacemaker -per cards 4. on coumadin -will need optimized INR- current level 2.3 5. PT/OT speech for discharge needs 6. likely discharge to once cardiac issues are well managed will sign off for now will be available as needed will see in 2-3 weeks after discharge from , Sissy Conner PAC schedule Pacer postponed today, Chart reviewed. I have discussed above patient with Dr Sissy Salinas, neurology
--- NOTE | 2017-05-29 17:34 | Progress Note ---
Progress Note Date of Service May 29, 2017. Progress Note pacemaker postponed will reschedule at next available time which is most likely saturday05/31/2017
[2017-05-29] MEDS: DIGOXIN 0.125 MG TAB PO SCH (21:03)
[2017-05-29] MEDS: WARFARIN SOD 7.5 MG TAB PO SCH (21:04)
[2017-05-29] MEDS: ATORVASTATIN 20 MG TAB PO SCH (21:04)
[2017-05-30] VITALS (10 sets, daily range): BP systolic 107–149; BP diastolic 60–72; PULSE 59–101; TEMP 36.6–37.1; O2SAT 93–98
[2017-05-30] MEDS: LEVOTHYROXINE 200 MCG TAB PO SCH ×2 (05:55→08:52)
[2017-05-30] MEDS: LEVOTHYROXINE 25 MCG TAB PO SCH ×2 (05:56→08:52)
[2017-05-30 06:34] LABS: PROTHROMBIN TIME (PATIENT) 22.6 SECONDS (9.0-12.0)
[2017-05-30] MEDS: ALBUTEROL 0.083% NEBU SOLN 3 ML VIAL INH SCH ×2 (07:06→18:55)
[2017-05-30] MEDS: ASCORBIC ACID 500 MG TAB PO SCH (08:45)
[2017-05-30] MEDS: CALCIUM 600MG + VIT D 400 IU TAB PO SCH (08:46)
[2017-05-30] MEDS: CEROVITE ADV FORMULA TAB PO SCH (08:46)
[2017-05-30] MEDS: MULTIVITAMIN TAB PO SCH (08:46)
[2017-05-30] MEDS: FEXOFENADINE HCL 180 MG TAB PO SCH (08:46)
[2017-05-30] MEDS: DOCUSATE SODIUM/SENNA 50/8.6MG TAB PO SCH ×2 (08:46→20:15)
[2017-05-30] MEDS: PANTOprazole SOD 40 MG TAB PO SCH (08:46)
[2017-05-30] MEDS: METOPROLOL TARTRATE 25 MG TAB PO SCH ×2 (08:46→20:17)
[2017-05-30] MEDS: FUROSEMIDE 20 MG TAB PO SCH (08:46)
[2017-05-30] MEDS: LOSARTAN POTASSIUM 50 MG TAB PO SCH (08:46)
[2017-05-30] MEDS: LOTEPREDNOL ETABONATE 0.5% OP SCH ×2 (08:47→20:17)
[2017-05-30] MEDS: UMECLIDINIUM-VILANTEROL (ANORO) INH SCH (08:47)
--- NOTE | 2017-05-30 10:22 | Progress Note ---
Internal Med Progress Note Date of Service: May 30, 2017. Provider Documentation: SUBJECTIVE: Patient is alert/awake and is lying in her bed in no apparent distress. She answers my simple questions appropriately.No headache/nausea/vomiting today.Was walking in hallway with assistance. No other new change overnight. OBJECTIVE: Vital Signs-as noted below Examination: General- Alert/Awake, Sitting in the chair in no distress Neck- Supple, Midline trachea,no JVD Lungs- B/L clear to auscultation Heart- irregular, II/ systolic murmur at base Abdomen- + BS, soft, nontender Extremities- trace pretibial edema, no calf tenderness Neuro- alert; EOMI; mild left facial palsy; no dysarthria; motor strength upper and lower extremities 4+/5 bilat Lab data as noted below. ASSESSMENT & PLAN: Acute CVA: CT demonstrated ischemic right occipital stroke in [employer] territory. Probable embolic stroke due to underlying atrial fibrillation or mechanical aortic valve prosthesis.INR 2.2 at time of admission. Not candidate for TPA due to warfarin therapy and duration of symptoms.Chronic AF. Mechanical AVR. -MRA cervical vessels demonstrated poorly visualized left vertebral artery, patent carotid and right vertebral arteries. -Echo - left atrium 4.6 cm, no apparent mural or valvular thrombi. -Neurology consult reviewed and following the patient. -Continued therapy with warfarin recommended. -Trying to maintain INR 2 - 2.5 to prevent subsequent embolic events while minimizing risk for hemorrhagic transformation. -No heparin or anti-platelet meds due to high risk of hemorrhagic transformation. -No hemorrhage on f/u CT 05/26. -PT, OT, Speech Therapy. Chronic Atrial Fibrillation/tachybrady Syndrome: Marked bradycardic at times, especially when sleeping. -Cardiology consulted and are following the patient -Metoprolol succinate dose decreased. -Digoxin continued. -Continue warfarin. -PPM being planned for 05/31/[address] Shah. Chronic Left ventricular Diastolic Heart failure: Stable. -Continue furosemide. -Monitor I's & O's. History GERD: Stable.Continue PPI. Mechanical Aortic Valve Replacement: INR goal 2.5-3.0 (lower half of therapeutic range); today = 2.0. -Titrate warfarin. Lung Mass: CT 04/01/17 demonstrated enlarging RUL mass worrisome for malignancy. Followed by Dr. Carrillo.Patient has opted not to pursue further evaluation. VTE Prophylaxis: Continue warfarin. Disposition: Case Management consulted. Anticipated transfer to [facility] for inpatient rehabilitation when medical status stable. Patient plans on staying with her [facility] and [place] after she completes rehabilitation. Family Medicine follow-up with Dr. Triston Adame. Vital Signs: Date Time Temp Pulse Resp B/P (MAP) Pulse Ox O2 Delivery O2 Flow Rate FiO2 05/30/17 08:26 36.9 64 18 141/63 (89) 98 05/30/17 07:07 80 16 97 Room Air 05/30/17 04:14 37.1 63 18 149/72 (97) 93 Room Air 05/30/17 04:00 Room Air 05/30/17 00:00 Room Air 05/29/17 23:48 37.3 61 18 117/65 (82) 95 Room Air 05/29/17 21:03 81 05/29/17 20:23 36.9 86 16 116/55 (75) 99 Room Air 05/29/17 20:00 Room Air 05/29/17 19:03 93 16 98 Room Air 05/29/17 16:04 36.9 77 16 128/65 (86) 92 Room Air 05/29/17 16:00 Room Air 05/29/17 12:24 36.9 81 16 124/76 (92) 96 05/29/17 12:00 96 Room Air Lab Results: Results Past 24 Hours Test 05/30/17 05:45 Range/Units Prothrombin Time 22.6 9.0-12.0 SECONDS Prothromb Time International Ratio 2.0 0.9-1.1
--- NOTE | 2017-05-30 13:29 | Cardiology Follow-Up ---
Subjective Date of Service: May 30, 2017. Pt evaluation today including: conversation w/ patient, conversation w/ family , physical exam, lab review, review of studies, conversation w/ medical sales consultant, review of inpatient medication list History of Present Illness Patient has atrial fibrillation with multiple pauses, pauses since yesterday in excess of 4 seconds. She requires pacemaker for bradycardia support. She is in permanent atrial fibrillation and is on warfarin, however that cannot be held due to her having a CVA while on therapeutic warfarin. Social History Smoking Status: Unknown if Ever Smoked History of Alcohol Use: No Review of Systems Respiratory: No shortness of breath Cardiac: + see HPI, No chest pain Medications Cardiovascular: Item Value Date Time Metoprolol 12.5 mg 05/27/17 2100 Tartrate BID/PO 05/30/17 0846 (Lopressor Tab) Losartan Potassium 50 mg 05/27/17 0900 (coZAAR TAB) QAM/PO 05/30/17 0846 Hydralazine HCl 50 mg 05/26/17 2100 (Apresoline Tab) TID/PO 05/30/17 0845 Warfarin Sodium 7.5 mg 05/26/17 1600 (Coumadin Tab) DAILY@16/PO 05/29/17 2104 Furosemide 20 mg 05/25/17 0900 (Lasix Tab) DAILY/PO 05/30/17 0846 Digoxin 0.125 mg 05/24/17 1600 (Lanoxin Tab) DAILY@1600/PO 05/29/17 2103 Atorvastatin 30 mg 05/24/17 2100 Calcium QPM/PO 05/29/17 2104 (Lipitor Tab) Objective Vital Signs Past 12 Hours Date Time Temp Pulse Resp B/P (MAP) Pulse Ox O2 Delivery O2 Flow Rate FiO2 05/30/17 12:15 Room Air 05/30/17 11:30 36.6 88 16 107/60 (76) 93 05/30/17 08:30 98 Room Air 05/30/17 08:26 36.9 64 18 141/63 (89) 98 05/30/17 07:07 80 16 97 Room Air 05/30/17 04:14 37.1 63 18 149/72 (97) 93 Room Air 05/30/17 04:00 Room Air Last Recorded Weight-Kilograms: 67.500 Physical Exam Constitutional: Level of Distress: NAD Lungs: Auscultation: no wheezing, no rales/crackles Cardiovascular: Heart Auscultation: irregular rate rhythm, pertinent finding (prosthetic heart sounds noted) Data Laboratory Results: Last 24 Hours Test 05/30/17 05:45 Prothrombin Time 22.6 SECONDS Prothromb Time International Ratio 2.0 Telemetry reviewed: Atrial fibrillation with variable heart rate, pauses as long as 4.1 seconds overnight. Assessment and Plan #1. Atrial fibrillation with long pauses: She has permanent atrial fibrillation and for the most part her rate is reasonably well controlled but she has prolonged pauses. She should have a pacemaker to support her heart rate at these times. Her warfarin has been continued due to her history of stroke while on therapeutic anticoagulation, therefore the pacemaker will need to be done on anticoagulation. I reviewed the indications, procedure, risks and alternatives of pacemaker implantation with her and her daughter who is present in the room. They both understand and she agrees to proceed and signed consent. Her risk of bleeding is greater than average due to presence of anticoagulation and they understand this. Thank you for allowing me to participate in her care.
[2017-05-30] MEDS ORDERED: LACTATED RINGER'S 1000ML 1,000 ML IV ONE (13:30)
--- NOTE | 2017-05-30 13:30 | Procedure Note ---
Pre-Mod Sedation Assessment General Date of Moderate Sedation: May 30, 2017. Vital Signs: Vital Signs Past 12 Hours Date Time Temp Pulse Resp B/P (MAP) Pulse Ox O2 Delivery O2 Flow Rate FiO2 05/30/17 12:15 Room Air 05/30/17 11:30 36.6 88 16 107/60 (76) 93 05/30/17 08:30 98 Room Air 05/30/17 08:26 36.9 64 18 141/63 (89) 98 05/30/17 07:07 80 16 97 Room Air 05/30/17 04:14 37.1 63 18 149/72 (97) 93 Room Air 05/30/17 04:00 Room Air Review Cardiovascular: + irregularly irregular Abdomen: normal bowel sounds Lungs: lungs clear Pre-Sedation Airway Assessment Oral Cavity: Dentures Short Thick Neck: No Hx of Sleep Apnea: No Smoking Status: Unknown if Ever Smoked Procedure Planning Contraindications-for Mod Sed: None Yes Notes The planned sedation has been discussed with the patient and consent obtained. I have identified the patient, determined the appropriateness of sedation and have assessed the patient immediately prior to the procedure. All medicine(s) and interventions are by my order.
[2017-05-30] MEDS ORDERED: CLINDAMYCIN IV 600 MG in DEXTROSE 5% 50ML 50 ML IV SCH (15:15)
[2017-05-30] MEDS ORDERED: LIDOCAINE HCL 1% 20 ML VIAL ONE (15:20)
[2017-05-30] MEDS ORDERED: BACITRACIN 50000 UNIT VIAL ONE (15:20)
[2017-05-30] MEDS ORDERED: BACITRACIN OINT 0.9 GM PKT ONE (15:20)
[2017-05-30] MEDS ORDERED: MIDAZOLAM HCL 5 MG/ML 1 ML VIAL ONE (15:34)
[2017-05-30] MEDS ORDERED: FENTANYL CITRATE INJ 50 MCG/1 ML 2 ML VIAL ONE (15:35)
--- NOTE | 2017-05-30 16:25 | Cardiology Procedure Brief Nt ---
Preliminary Cardiology Note Procedure Date May 30, 2017. Pre-Procedure Diagnosis atrial fibrillation with long pauses Post-Procedure Diagnosis same Procedure(s) Performed Single-chamber pacemaker implantation Senior Gis Analyst Dr. [employer] Professor(s) none Estimated Blood Loss 20 cc Preliminary Findings Good lead position, good measurements Recommendations Monitor overnight Specimens None Anesthesia local with sedation Complication(s) None Disposition PCU
--- NOTE | 2017-05-30 16:25 | Procedure Note ---
Post-Mod Sedation Assessment General Date of Moderate Sedation May 30, 2017. Vital Signs: Vital Signs Past 12 Hours Date Time Temp Pulse Resp B/P (MAP) Pulse Ox O2 Delivery O2 Flow Rate FiO2 05/30/17 15:11 36.7 59 16 134/70 (91) 93 Room Air 05/30/17 12:15 Room Air 05/30/17 11:30 36.6 88 16 107/60 (76) 93 05/30/17 08:30 98 Room Air 05/30/17 08:26 36.9 64 18 141/63 (89) 98 05/30/17 07:07 80 16 97 Room Air 05/30/17 05:53 36.6 88 16 107/60 93 Room Air Review - Discharge Criteria Vital Signs Stable: Yes Alert/Oriented/Conversant: Yes Returned to Baseline Mental St: Yes Nausea Absent/Minimal: Yes Pain/Discomfort/Absent/Minimal: Yes Normal/Baseline Respirations: Yes Active Bleeding?: No
[2017-05-30] MEDS ORDERED: KETOROLAC TROMETHAMINE 10 MG TAB PO PRN (16:30)
[2017-05-30] MEDS ORDERED: ACETAMINOPHEN 325 MG TAB PO PRN (16:30)
[2017-05-30] MEDS: DIGOXIN 0.125 MG TAB PO SCH (17:07)
[2017-05-30] MEDS: WARFARIN SOD 7.5 MG TAB PO SCH (17:07)
[2017-05-30] MEDS: ATORVASTATIN 20 MG TAB PO SCH (20:17)
[2017-05-30] MEDS: ACETAMINOPHEN 325 MG TAB PO PRN (21:36)
[2017-05-30] MEDS: TEMAZEPAM 15 MG CAP PO PRN (21:36)
[2017-05-30] MEDS: CLINDAMYCIN IV 600 MG in DEXTROSE 5% 50ML 50 ML IV SCH (21:37)
[2017-05-31 00:04] VITALS: BP 111/70; PULSE 88; TEMP 36.9; O2SAT 93
[2017-05-31 04:30] VITALS: BP 124/66; PULSE 61; TEMP 37.1; O2SAT 95
[2017-05-31] MEDS ORDERED: CLINDAMYCIN 600 MG/54 ML D5W IV SCH (06:00)
[2017-05-31 06:09] LABS: BASO % 0.3 %; BASO ABS # 0.02 K/uL (0-0.2); COMPLETE YES; EOS % 2.5 %; HEMATOCRIT 42.4 % (37-47); LYMPH % 7.4 %; LYMPH ABS # 0.47 K/uL (1.2-3.4); MEAN CELL VOLUME 94.6 fL (80-100); MEAN CORPUSCULAR HEMOGLOBIN 32.8 pg (25-34); MEAN CORPUSCULAR HGB CONC 34.7 g/dl (32-36); MEAN PLATELET VOLUME 10.1 fL (7.4-10.4); MONO % 9.2 %; NEUT % 80.6 %; PLATELET COUNT 176 K/uL (130-400); RED BLOOD COUNT 4.48 M/uL (4.2-5.4); WHITE BLOOD COUNT 6.38 K/uL (4.8-10.8)
[2017-05-31] MEDS: CLINDAMYCIN IV 600 MG in DEXTROSE 5% 50ML 50 ML IV SCH ×2 (06:16→13:56)
[2017-05-31 06:18] LABS: INR 2.6 (0.9-1.1); PROTHROMBIN TIME (PATIENT) 29.3 SECONDS (9.0-12.0)
[2017-05-31 06:41] LABS: BUN/CREATININE RATIO 25.4 (10-20); CALCIUM 9.8 mg/dl (8.5-10.1); CREATININE 0.97 mg/dl (0.60-1.20); POTASSIUM 3.4 mmol/L (3.5-5.1)
--- NOTE | 2017-05-31 07:21 | DIAGNOSTIC IMAGING REPORT ---
CHEST 2 VIEWS ROUTINE CLINICAL HISTORY: 86 years-old Female presenting with Evaluate for pneumothorax and lead placement, history of pacer. TECHNIQUE: PA and lateral views of the chest were obtained. COMPARISON: 05/24/2017. FINDINGS: Interval placement of a left-sided pacer with single lead to the right ventricular apex in good position. Prosthetic aortic valve again noted. Median sternotomy wires intact. Surgical material projects over the right mid lung and left lung base. Cardiomediastinal silhouette remarkable for atherosclerosis of the aortic arch. Previously noted opacity at the right lung base persists, evidenced on lateral view. No pneumothorax or pleural effusion. Osseous structures and upper abdomen normal. IMPRESSION: 1. Persistent opacity at the right lung base. This was previously demonstrated on chest CT and concerning for primary lung malignancy. 2. No pneumothorax status post placement of left-sided pacer. Electronically signed by: Yoni Odell 05/31/2017 7:19 AM Dictated Date/Time: 05/31/2017 7:15 AM
[2017-05-31] MEDS ORDERED: POTASSIUM CHLORIDE 20 MEQ TABCR PO ONE (07:30)
[2017-05-31 07:43] VITALS: BP 128/94; PULSE 83; TEMP 36.7; O2SAT 96
[2017-05-31] MEDS: ALBUTEROL 0.083% NEBU SOLN 3 ML VIAL INH SCH (08:00)
--- NOTE | 2017-05-31 08:39 | Cardiology Follow-Up ---
Subjective General Date of Service: May 31, 2017. 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 Having long pauses on tele after admission. received PPM yesterday. Resting comfortably with no new complaints. Pt. with hx of lung mass choosing not to have work-up. Allergies Coded Allergies: BEE STING (Verified Allergy, Intermediate, rash and site/generalized swelling, 05/24/17) Adhesives (Verified Allergy, Mild, RASH, 05/24/17) Amlodipine (Verified Allergy, Mild, unknown, 05/24/17) Azithromycin (Verified Allergy, Mild, counteraction with breathing medication, 11/10/16) Cephalosporins (Verified Allergy, Mild, unknown, 05/24/17) Sulfa Antibiotics (Verified Allergy, Mild, RASH, 05/24/17) Tetanus Toxoid (Verified Allergy, Mild, generalized swelling and rash, ) Cephalexin (Verified Allergy, Unknown, unknown, 05/24/17) Penicillins (Verified Allergy, Unknown, RASH WITH WELTS, 05/24/17) Fluvastatin (Verified Adverse Reaction, Intermediate, severe myalgias, ) Meperidine (Verified Adverse Reaction, Intermediate, Hallucinations, ) Zolpidem (Verified Adverse Reaction, Intermediate, Severe confusion and disorientation, 05/24/17) Simvastatin (Verified Adverse Reaction, Mild, Muscle Aches, 05/24/17) Iodinated Diagnostic Agents (Verified Adverse Reaction, Unknown, INCREASED BLOOD PRESSURE, 05/24/17) Prednisone (Verified Adverse Reaction, Unknown, sensitive side effects - try not to use, 05/24/17) Social History Smoking Status: Unknown if Ever Smoked Hx Tobacco Use In Past Year?: No Hx Alcohol Use - Type And Amou: No Hx Substance Use - Type And Am: No Problem List Medical Problems: (1) Confusion Status: Acute (2) Hypoxia Status: Acute (3) Pneumonia Status: Acute Physical Exam Vital Signs Last Vital Signs Documentation Date Time Temp Pulse Resp B/P (MAP) Pulse Ox O2 Delivery O2 Flow Rate FiO2 05/31/17 07:43 36.7 83 18 128/94 (105) 96 05/31/17 04:30 Room Air 05/29/17 20:23 Physical Exam Constitutional: Level of Distress: NAD Head: normocephalic ENMT: normal ENT inspection Neck: supple Lungs: Auscultation: no wheezing, no rales/crackles Cardiovascular: Heart Auscultation: irregular rate rhythm, pertinent finding (prosthetic heart sounds noted) Musculoskeletal: normal Assessment and Plan Assessment and Plan Rate controlled afib with INR 2.6 today. Will arrange wound check and pacer follow-up for next week. mechanical AVR Laboratory Results Last 24 Hours Test 05/31/17 05:33 White Blood Count 6.38 K/uL Red Blood Count 4.48 M/uL Hemoglobin 14.7 g/dL Hematocrit 42.4 % Mean Corpuscular Volume 94.6 fL Mean Corpuscular Hemoglobin 32.8 pg Mean Corpuscular Hemoglobin Concent 34.7 g/dl Platelet Count 176 K/uL Mean Platelet Volume 10.1 fL Neutrophils (%) (Auto) 80.6 % Lymphocytes (%) (Auto) 7.4 % Monocytes (%) (Auto) 9.2 % Eosinophils (%) (Auto) 2.5 % Basophils (%) (Auto) 0.3 % Neutrophils # (Auto) 5.14 K/uL Lymphocytes # (Auto) 0.47 K/uL Monocytes # (Auto) 0.59 K/uL Eosinophils # (Auto) 0.16 K/uL Basophils # (Auto) 0.02 K/uL RDW Standard Deviation 41.4 fL RDW Coefficient of Variation 12.0 % Immature Granulocyte % (Auto) 0.0 % Immature Granulocyte # (Auto) 0.00 K/uL Prothrombin Time 29.3 SECONDS Prothromb Time International Ratio 2.6 Sodium Level 139 mmol/L Potassium Level 3.4 mmol/L Chloride Level 105 mmol/L Carbon Dioxide Level 24 mmol/L Anion Gap 10.0 mmol/L Blood Urea Nitrogen 25 mg/dl Creatinine 0.97 mg/dl Est Creatinine Clear Calc Drug Dose 38.9 ml/min Estimated GFR () 61.3 Estimated GFR (Non- 52.9 BUN/Creatinine Ratio 25.4 Random Glucose 92 mg/dl Calcium Level 9.8 mg/dl Digoxin Level 0.9 ng/ml
[2017-05-31] MEDS: UMECLIDINIUM-VILANTEROL (ANORO) INH SCH (08:46)
[2017-05-31] MEDS: FEXOFENADINE HCL 180 MG TAB PO SCH (08:47)
[2017-05-31] MEDS: LOTEPREDNOL ETABONATE 0.5% OP SCH (08:47)
[2017-05-31] MEDS: FUROSEMIDE 20 MG TAB PO SCH (08:49)
[2017-05-31] MEDS: LOSARTAN POTASSIUM 50 MG TAB PO SCH (08:49)
[2017-05-31] MEDS: METOPROLOL TARTRATE 25 MG TAB PO SCH (08:51)
[2017-05-31] MEDS: CEROVITE ADV FORMULA TAB PO SCH (08:51)
[2017-05-31] MEDS: DOCUSATE SODIUM/SENNA 50/8.6MG TAB PO SCH (08:52)
[2017-05-31] MEDS: ASCORBIC ACID 500 MG TAB PO SCH (08:52)
[2017-05-31] MEDS: PANTOprazole SOD 40 MG TAB PO SCH (08:52)
[2017-05-31] MEDS: MULTIVITAMIN TAB PO SCH (08:53)
[2017-05-31] MEDS: CALCIUM 600MG + VIT D 400 IU TAB PO SCH (08:53)
[2017-05-31] MEDS: LEVOTHYROXINE 25 MCG TAB PO SCH (09:55)
[2017-05-31] MEDS: LEVOTHYROXINE 200 MCG TAB PO SCH (09:55)
[2017-05-31] MEDS ORDERED: NURSING VERBAL MED ORDER ONE (10:45)
[2017-05-31 11:39] VITALS: BP 115/62; PULSE 70; TEMP 36.8; O2SAT 95
--- NOTE | 2017-05-31 11:59 | Progress Note ---
Internal Med Progress Note Date of Service: May 31, 2017. Provider Documentation: SUBJECTIVE: Patient is alert/awake and is lying in her bed in no apparent distress. She answers my simple questions appropriately.No headache/nausea/vomiting today.C/O some intermittent itchiness derick in legs. PPM was placed yesterday evening uneventfully. No other new change overnight. OBJECTIVE: Vital Signs-as noted below Examination: General- Alert/Awake, Sitting in the chair in no distress Neck- Supple, Midline trachea,no JVD Lungs- B/L clear to auscultation. Site of PPM is tender on palpation. No hematoma or discharge noted. Heart- irregular, II/ systolic murmur at base Abdomen- + BS, soft, nontender Extremities- trace pretibial edema, no calf tenderness Neuro- alert; EOMI; mild left facial palsy; no dysarthria; motor strength upper and lower extremities 4+/5 bilat Lab data as noted below. 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 Probable embolic stroke due to underlying atrial fibrillation or mechanical aortic valve prosthesis.INR 2.2 at time of admission. Not candidate for TPA due to warfarin therapy and duration of symptoms.Chronic AF. Mechanical AVR. -MRA cervical vessels demonstrated poorly visualized left vertebral artery, patent carotid and right vertebral arteries. -Echo - left atrium 4.6 cm, no apparent mural or valvular thrombi. -Neurology consult reviewed and following the patient. -Continued therapy with warfarin recommended. -Trying to maintain INR 2 - 2.5 to prevent subsequent embolic events while minimizing risk for hemorrhagic transformation. -No heparin or anti-platelet meds due to high risk of hemorrhagic transformation. -No hemorrhage on f/u CT 05/26. -PT, OT, Speech Therapy. Chronic Atrial Fibrillation/tachybrady Syndrome: Marked bradycardic at times, especially when sleeping. -Cardiology consulted and are following the patient -Metoprolol succinate dose decreased. -Digoxin continued. -Continue warfarin. -PPM was placed on 05/30/2017 evening and is doing well. Itchiness: Likely Iatrogenic. -Benadryl as needed Chronic Left ventricular Diastolic Heart failure: Stable. -Continue furosemide. -Monitor I's & O's. History GERD: Stable.Continue PPI. Mechanical Aortic Valve Replacement: INR goal 2.5-3.0 (lower half of therapeutic range); today = 2.0. -Titrate warfarin. Lung Mass: CT 04/01/17 demonstrated enlarging RUL mass worrisome for malignancy. Followed by Dr. Carrillo.Patient has opted not to pursue further evaluation. VTE Prophylaxis: Continue warfarin. Disposition: Discharge once is cleared by cardiology Anticipated transfer to [facility] for inpatient rehabilitation when medical status stable. Patient plans on staying with her [facility] and [place] after she completes rehabilitation. Family Medicine follow-up with Dr. Triston Adame 06/05/2017 @ 1.05 PM.. Vital Signs: Date Time Temp Pulse Resp B/P (MAP) Pulse Ox O2 Delivery O2 Flow Rate FiO2 05/31/17 11:39 36.8 70 18 115/62 (79) 95 05/31/17 08:00 Room Air 05/31/17 07:43 36.7 83 18 128/94 (105) 96 05/31/17 04:30 37.1 61 18 124/66 (85) 95 Room Air 05/31/17 04:00 Room Air 05/31/17 00:04 36.9 88 18 111/70 (84) 93 Room Air 05/31/17 00:00 Room Air 05/30/17 20:08 36.7 101 18 110/64 (79) 94 Room Air 05/30/17 20:00 Room Air 05/30/17 18:56 92 16 94 Room Air 05/30/17 17:07 72 05/30/17 16:30 Room Air 05/30/17 16:30 36.7 78 16 111/62 (78) 94 Room Air 05/30/17 16:20 78 16 128/76 (93) 96 Room Air 05/30/17 15:11 36.7 59 16 134/70 (91) 93 Room Air 05/30/17 12:15 Room Air Lab Results: Results Past 24 Hours Test 05/31/17 05:33 Range/Units White Blood Count 6.38 4.8-10.8 K/uL Red Blood Count 4.48 4.2-5.4 M/uL Hemoglobin 14.7 12.0-16.0 g/dL Hematocrit 42.4 37-47 % Mean Corpuscular Volume 94.6 80-100 fL Mean Corpuscular Hemoglobin 32.8 25-34 pg Mean Corpuscular Hemoglobin Concent 34.7 32-36 g/dl Platelet Count 176 130-400 K/uL Mean Platelet Volume 10.1 7.4-10.4 fL Neutrophils (%) (Auto) 80.6 % Lymphocytes (%) (Auto) 7.4 % Monocytes (%) (Auto) 9.2 % Eosinophils (%) (Auto) 2.5 % Basophils (%) (Auto) 0.3 % Neutrophils # (Auto) 5.14 1.4-6.5 K/uL Lymphocytes # (Auto) 0.47 1.2-3.4 K/uL Monocytes # (Auto) 0.59 0.11-0.59 K/uL Eosinophils # (Auto) 0.16 0-0.5 K/uL Basophils # (Auto) 0.02 0-0.2 K/uL RDW Standard Deviation 41.4 36.4-46.3 fL RDW Coefficient of Variation 12.0 11.5-14.5 % Immature Granulocyte % (Auto) 0.0 % Immature Granulocyte # (Auto) 0.00 0.00-0.02 K/uL Prothrombin Time 29.3 9.0-12.0 SECONDS Prothromb Time International Ratio 2.6 0.9-1.1 Sodium Level 139 136-145 mmol/L Potassium Level 3.4 3.5-5.1 mmol/L Chloride Level 105 98-107 mmol/L Carbon Dioxide Level 24 21-32 mmol/L Anion Gap 10.0 3-11 mmol/L Blood Urea Nitrogen 25 7-18 mg/dl Creatinine 0.97 0.60-1.20 mg/dl Est Creatinine Clear Calc Drug Dose 38.9 ml/min Estimated GFR () 61.3 Estimated GFR (Non- 52.9 BUN/Creatinine Ratio 25.4 10-20 Random Glucose 92 70-99 mg/dl Calcium Level 9.8 8.5-10.1 mg/dl Digoxin Level 0.9 0.8-2.0 ng/ml
--- NOTE | 2017-05-31 12:47 | Cardiology Follow-Up ---
Subjective Date of Service: May 31, 2017. Pt evaluation today including: conversation w/ patient, physical exam, lab review, review of studies History of Present Illness Patient has atrial fibrillation with multiple pauses in excess of 4 seconds. She required pacemaker for bradycardia support. She is in permanent atrial fibrillation and is on warfarin, however that cannot be held due to her having a CVA while on therapeutic warfarin. She therefore underwent single-chamber pacemaker implantation yesterday. The procedure was uneventful. Today she has no complaints of than occasional discomfort. Social History Smoking Status: Unknown if Ever Smoked History of Alcohol Use: No Review of Systems Respiratory: No shortness of breath Cardiac: + see HPI, No chest pain Objective Vital Signs Past 12 Hours Date Time Temp Pulse Resp B/P (MAP) Pulse Ox O2 Delivery O2 Flow Rate FiO2 05/31/17 11:39 36.8 70 18 115/62 (79) 95 05/31/17 08:00 Room Air 05/31/17 07:43 36.7 83 18 128/94 (105) 96 05/31/17 04:30 37.1 61 18 124/66 (85) 95 Room Air 05/31/17 04:00 Room Air Last Recorded Weight-Kilograms: 68.000 Physical Exam Constitutional: Level of Distress: NAD Lungs: Auscultation: no wheezing, no rales/crackles Cardiovascular: Heart Auscultation: irregular rate rhythm, pertinent finding (prosthetic heart sounds noted) Pacemaker site is clean and dry, no significant hematoma or bleeding Data Laboratory Results: Last 24 Hours Test 05/31/17 05:33 White Blood Count 6.38 K/uL Red Blood Count 4.48 M/uL Hemoglobin 14.7 g/dL Hematocrit 42.4 % Mean Corpuscular Volume 94.6 fL Mean Corpuscular Hemoglobin 32.8 pg Mean Corpuscular Hemoglobin Concent 34.7 g/dl Platelet Count 176 K/uL Mean Platelet Volume 10.1 fL Neutrophils (%) (Auto) 80.6 % Lymphocytes (%) (Auto) 7.4 % Monocytes (%) (Auto) 9.2 % Eosinophils (%) (Auto) 2.5 % Basophils (%) (Auto) 0.3 % Neutrophils # (Auto) 5.14 K/uL Lymphocytes # (Auto) 0.47 K/uL Monocytes # (Auto) 0.59 K/uL Eosinophils # (Auto) 0.16 K/uL Basophils # (Auto) 0.02 K/uL RDW Standard Deviation 41.4 fL RDW Coefficient of Variation 12.0 % Immature Granulocyte % (Auto) 0.0 % Immature Granulocyte # (Auto) 0.00 K/uL Prothrombin Time 29.3 SECONDS Prothromb Time International Ratio 2.6 Sodium Level 139 mmol/L Potassium Level 3.4 mmol/L Chloride Level 105 mmol/L Carbon Dioxide Level 24 mmol/L Anion Gap 10.0 mmol/L Blood Urea Nitrogen 25 mg/dl Creatinine 0.97 mg/dl Est Creatinine Clear Calc Drug Dose 38.9 ml/min Estimated GFR () 61.3 Estimated GFR (Non- 52.9 BUN/Creatinine Ratio 25.4 Random Glucose 92 mg/dl Calcium Level 9.8 mg/dl Digoxin Level 0.9 ng/ml Imaging: Chest x-ray shows good lead position, no pneumothorax Telemetry reviewed: Atrial fibrillation with appropriate pacemaker function Pacemaker evaluation: Excellent pacing and sensing characteristics. Assessment and Plan #1. Atrial fibrillation with long pauses: She has permanent atrial fibrillation and for the most part her rate is reasonably well controlled but she has prolonged pauses. Now her pacemaker will control her bradycardia and we've these medications for heart rate control. #2. Postop day #1: Doing well post-pacemaker implantation. Pacemaker is working well, the lead appears to be in good position. The site looks good. Stable for discharge from my standpoint. Thank you for allowing me to participate in her care.
--- NOTE | 2017-05-31 12:48 | Consultant Recommendations ---
Mold Engraver Recommendations Date of Service May 31, 2017. Mold Engraver Recommendations ACTIVITY RECOMMENDATIONS: * Do not raise affected arm over head for 2 weeks. SPECIAL CARE INSTRUCTIONS: * If bleeding occurs, apply direct pressure to area for 5 minutes. * Call your doctor if you have severe pain, fever, drainage or bleeding at site. * Keep dressing on and dry for 48 hours then remove. * Keep any scheduled doctor's appointment. * Implant Card - hand held device with website information given. SKIN IRRITATION: * You may experience some redness and/or swelling in the area where radiation was administered. If any skin irritation occurs, please contact your family physician. FOLLOW UP VISIT: Keep any scheduled doctor appointments.
[2017-05-31] MEDS ORDERED: CZR50 PO (14:22)
[2017-05-31] MEDS ORDERED: LPR25 PO (14:22)
--- NOTE | 2017-05-31 14:32 | Discharge Instructions ---
Discharge Instructions Date of Service May 31, 2017. Admission Reason for Admission: Cva (Cerebral Vascular Accident) Discharge Discharge Diagnosis / Problem: Atrial Fibrillation with Taxchybrady Syndrome Discharge Goals Goal(s): Decrease discomfort, Improve function, Increase independence, Improve disease control, Learn about illness, Diagnostic testing, Prevent Disease Progression Activity Recommendations Activity Limitations: resume your previous activity (As Tolerated.) Lifting Limitations: no more than 5 pounds Exercise/Sports Limitations: as tolerated (Following Fall precautions) Shower/Bathe: no limitations (With assistance) . Instructions / Follow-Up Instructions / Follow-Up 1. Take all the medications as directed. 2. Follow PT/INR 3. Follow up with cardiology as per their recommendations Current Hospital Diet Patient's current hospital diet: AHA Diet (Heart Healthy) Discharge Diet Recommended Diet: AHA Diet (Heart Healthy) Fluid Restriction: 1800 ml (7 cups) Pending Studies Studies pending at discharge: no Laboratory Results Hemoglobin A1c Test 05/24/17 12:11 Range/Units Estimated Average Glucose 105 mg/dl Hemoglobin A1c 5.3 4.5-5.6 % Lipid Panel Test 05/25/17 06:15 Range/Units Triglycerides Level 281 H 0-150 mg/dl Cholesterol Level 142 0-200 mg/dl HDL Cholesterol 27 mg/dl Cholesterol/HDL Ratio 5.3 LDL Cholesterol, Calculated 59 mg/dl Medical Emergencies . Who to Call and When: Medical Emergencies: If at any time you feel your situation is an emergency, please call 911 immediately. . Non-Emergent Contact Non-Emergency issues call your: Primary Care Provider . . "Provider Documentation" section prepared by Gonzales Soto. . Etcher Electrolytic Recommendations Etcher Electrolytic Recommendations: ACTIVITY RECOMMENDATIONS: * Do not raise affected arm over head for 2 weeks. SPECIAL CARE INSTRUCTIONS: * If bleeding occurs, apply direct pressure to area for 5 minutes. * Call your doctor if you have severe pain, fever, drainage or bleeding at site. * Keep dressing on and dry for 48 hours then remove. * Keep any scheduled doctor's appointment. * Implant Card - hand held device with website information given. SKIN IRRITATION: * You may experience some redness and/or swelling in the area where radiation was administered. If any skin irritation occurs, please contact your family physician. FOLLOW UP VISIT: Keep any scheduled doctor appointments. VTE Core Measure Inpt VTE Proph given/why not?: Warfarin (Coumadin)
--- NOTE | 2017-05-31 14:49 | Discharge Summary ---
Discharge Summary Date of Service May 31, 2017. 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 Vaccinations: NONE Consultations: Neuro Cardiology . Pending Studies/Follow-Up: Follow up with Cardiology as outpatient PT/INR needs to be monitored. Medication Reconciliation New Medications: Losartan Potassium (Losartan Potassium) 50 Mg Tab 50 MG PO QAM, #60 TAB Metoprolol Tartrate (Lopressor) 25 Mg Tab 12.5 MG PO BID, #60 TAB Continued Medications: Acetaminophen (Tylenol Arthritis Ext Rel) 650 Mg Cplt 1300 MG PO Q8 PRN for Pain, 0 Refills Albuterol Hfa (Ventolin Hfa) 200 Puffs/08621 Mcg Aers 2 PUFFS INH Q6H PRN for SOB/Wheezing, #1 INHALER Albuterol Sulf (Proventil 0.083% 2.5MG/3ML) 2.5 Mg/3 Ml Nebu 2.5 MG INH BID, EA Alendronate Sodium (Alendronate Sodium) 35 Mg Tab 1 TAB PO WK for 84 Days, #12 TAB 3 Refills tuesdays Ascorbic Acid (Ascorbic Acid) 500 Mg Tab 500 MG PO QAM, TAB Atorvastatin (Lipitor) 20 Mg Tab 30 MG PO QPM Calcium/Vitamin D (Os-Dima 500 Plus D) Tab 2 TAB PO DAILYBL, TAB Digoxin (Digoxin) 0.125 Mg Tab 1 TAB PO DAILY Epinephrine (Epipen) 0.3 Mg/0.3 Ml Inj 0.3 MG IM UD for ALLERGIC REACTION Ferrous Fumarate-Folic Acid (Hematinic/Folic Acid) 1 Tab Tab 1 TAB PO DAILY Fexofenadine Hcl (Allison) 180 Mg Tab 180 MG PO QAM, TAB Fish Oil ([place]-3) 1 Ea Cap 1 CAP PO BID@1200,2100, 0 Refills Furosemide (Lasix) 20 Mg Tab 20 MG PO DAILY, TAB Hydralazine Hcl (Apresoline) 50 Mg Tab 50 MG PO TID, TAB Levothyroxine Sodium (Synthroid) 25 Mcg Tab 25 MCG PO DAILYBB, TAB Levothyroxine Sodium (Synthroid) 200 Mcg Tab 1 TAB PO DAILYBB Loteprednol Etabonate (Lotemax) 150 Drops/10 Ml Susp 1 DROPS OP BID, #5 ML Multiple Vitamin (Multivitamin) 1 Tab Tab 1 TAB PO QAM, TAB Multiple Vitamins W/ Minerals (Preservision/Lutein) 1 Cap Cap 1 CAP PO DAILY Omeprazole (Prilosec) 20 Mg Capcr 20 MG PO QAM, 0 Refills TAKE THIS MEDICATION ONCE DAILY ONE HOUR BEFORE FIRST MEAL OF THE DAY. Polyethylene Glycol 3350 (Miralax) 1 Pow Pow 1 TBS PO DAILY PRN for Severe Constipation DISSOLVE ONE HEAPING TABLESPOON IN 8 OUNCES OF WATER OR JUICE. Temazepam (Restoril) 15 Mg Cap 15-30 MG PO HS PRN for Insomnia, 0 Refills Umeclidinium-Vilanterol (Anoro Ellipta 62.5-25 Mcg/INH) 1 Aer Aer 1 PUFF INH QAM Warfarin Sod (Jantoven) 5 Mg Tab 5 MG PO UD, TAB mon, wed, fri Warfarin Sod (Jantoven) 7.5 Mg Tab 7.5 MG PO UD, TAB tues, thurs, sat, sun Discontinued Medications: Doxycycline (Monohydrate) (Doxycycline) 100 Mg Cap 1 CAP PO BID rescue kit Guaifenesin Ext Rel (Mucinex Ext Rel) 600 Mg Tab 600 MG PO Q4 PRN for Cough, TAB Losartan Potassium (Cozaar) 100 Mg Tab 100 MG PO QAM, TAB Metoprolol Succ (Toprol Xl) (Toprol-Xl) 50 Mg Tabcr 50 MG PO BID Prednisone Tab (Prednisone) 10 Mg Tab 10 MG PO UD, TAB rescue kit - [id number], [id number], [id number], [id number] Admission Information HPI (per Admitting provider): 86 year old female who presents to the ER with reports of headache and vision problems. Patient reports she went to bed last night with a frontal headache. When she woke up this morning the headache was located around her right eye. She reports the headache at it's worst was #7/10 and it currently improving. She also reports visual problems. She reports she "just couldn't see". Patient denies double vision but is unable to describe her visual disturbances further. She reports her vision has almost returned to normal. She notes poor vision at baseline due to macular degeneration. Patient denies any unilateral numbness, tingling, or weakness. She had difficulty walking but it was due to the vision disturbance. She denies lightheadedness, dizziness, or syncope. No chest pain or shortness of breath. Denies recent illnesses, fever, or chills. No abdominal pain, nausea, vomiting, or diarrhea. She denies urinary symptoms. 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 INR is 2.2. BP is somewhat hypertensive, other vitals stable. Labs unremarkable. Physical Exam (per Admitting): General Appearance: no apparent distress Head: normocephalic Eyes: PERRL, + pertinent finding (decreased left peripheral vision ) ENT: hearing grossly normal Neck: supple, no JVD Respiratory/Chest: no respiratory distress, + pertinent finding (scattered faint coarse breath sounds) Cardiovascular: no edema, + irregularly irregular (rate controlled) Abdomen/GI: normal bowel sounds, non tender, soft Extremities/Musculoskelatal: normal inspection, no calf tenderness Neurologic/Psych: no motor/sensory deficits, alert, normal mood/affect, oriented x 3 Skin: normal color, warm/dry Hospital Course Acute CVA: CT demonstrated ischemic right occipital stroke in NUT PROCESSING SUPERVISOR territory. Probable embolic stroke due to underlying atrial fibrillation or mechanical aortic valve prosthesis.INR 2.2 at time of admission. Not candidate for TPA due to warfarin therapy and duration of symptoms.Chronic AF. Mechanical AVR. -MRA cervical vessels demonstrated poorly visualized left vertebral artery, patent carotid and right vertebral arteries. -Echo - left atrium 4.6 cm, no apparent mural or valvular thrombi. -Neurology consult reviewed and following the patient. -Continued therapy with warfarin recommended. -Trying to maintain INR 2 - 2.5 to prevent subsequent embolic events while minimizing risk for hemorrhagic transformation. -No heparin or anti-platelet meds due to high risk of hemorrhagic transformation. -No hemorrhage on f/u CT 05/26. -PT, OT, Speech Therapy. Chronic Atrial Fibrillation/tachybrady Syndrome: Marked bradycardic at times, especially when sleeping. -Cardiology consulted and are following the patient -Metoprolol succinate dose decreased. -Digoxin continued. -Continue warfarin. -PPM was placed on 05/30/2017 evening and is doing well. Itchiness: Likely Iatrogenic. -Benadryl as needed Chronic Left ventricular Diastolic Heart failure: Stable. -Continue furosemide. -Monitor I's & O's. History GERD: Stable.Continue PPI. Mechanical Aortic Valve Replacement: INR goal 2.5-3.0 (lower half of therapeutic range); today = 2.0. -Titrate warfarin. Lung Mass: CT 04/01/17 demonstrated enlarging RUL mass worrisome for malignancy. Followed by Dr. Carrillo.Patient has opted not to pursue further evaluation. VTE Prophylaxis: Continue warfarin. Disposition: Discharge once is cleared by cardiology Anticipated transfer to [facility] for inpatient rehabilitation when medical status stable. Patient plans on staying with her [facility] and [place] after she completes rehabilitation. Family Medicine follow-up with Dr. Triston Adame om 06/05/2017 @ 1.05 PM.. Total time spent on discharge = 44 minutes This includes examination of the patient, discharge planning, medication reconciliation, and communication with other providers. Discharge Instructions Activity Recommendations Activity Limitations: resume your previous activity (As Tolerated.) Lifting Limitations: no more than 5 pounds Exercise/Sports Limitations: as tolerated (Following Fall precautions) Shower/Bathe: no limitations (With assistance) . Instructions / Follow-Up Instructions / Follow-Up 1. Take all the medications as directed. 2. Follow PT/INR 3. Follow up with cardiology as per their recommendations Current Hospital Diet Patient's current hospital diet: AHA Diet (Heart Healthy) Discharge Diet Recommended Diet: AHA Diet (Heart Healthy) Fluid Restriction: 1800 ml (7 cups) Additional Copies To Triston Adame D.O. Lesko, Michael G.,
[2017-05-31 15:45] VITALS: BP 119/64; PULSE 66; TEMP 36.9; O2SAT 96
[2017-05-31] MEDS: WARFARIN SOD 7.5 MG TAB PO SCH (16:04)
[2017-05-31] MEDS: DIGOXIN 0.125 MG TAB PO SCH (16:05)
--- NOTE | 2017-06-01 16:19 | [facility] Operative Report ---
Operative Report Operative Date Jun 01, 2017. 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 Calix Crystal Attacher Surgeon(s) None Estimated Blood Loss 20 cc Findings Good lead position, good measurements. No significant difficulty with bleeding ( procedure done on anticoagulation due to stroke risk). Specimens None Anesthesia Local with sedation Complication(s) None Disposition PCU Description of Procedure After obtaining informed consent for the procedure, the patient was brought to the laboratory and prepped and draped in the standard sterile manner. The left prepectoral region was anesthetized with 1% lidocaine local anesthetic and left axillary venipuncture was performed by percutaneous technique and a guidewire placed through the left subclavian vein into the superior vena cava. The area was further infiltrated with 1% lidocaine local anesthetic and a 5 cm incision was made parallel to the left clavicle and 2 cm below it and carried down to the anterior pectoralis fascia. A pacemaker pocket was formed by blunt dissection anterior to the pectoralis fascia and a bacitracin-soaked sponge (50, 000 units in 50 cc normal saline solution) was placed in the pocket. An 8 [place] Medtronic lead introducer was placed over the guidewire into the left subclavian vein, the dilator and guidewire were removed and a bipolar active fixation steroid tipped ventricular lead was advanced through the introducer into the superior vena cava. A guidewire was placed through the introducer and the introducer was stripped from the lead and guidewire. Using a curved stylette the ventricular lead was advanced through the right ventricular outflow tract into the pulmonary artery and then using a straight stylette was positioned in the right ventricular apex. The screw was extended fixing the lead in position. Pacing and sensing thresholds were evaluated in bipolar configuration and are recorded on the implant data sheet. Once the lead was in position it was attached to the anterior pectoralis fascia using 2 sutures of 2-0 silk around the lead collar. The bacitracin-soaked sponge was removed from the pocket, hemostasis was obtained, the pacemaker was attached to the lead and placed in the pocket with the lead coiled beneath it. The incision was closed with a running double subcutaneous closure of 3-0 V- Lock absorbable suture, followed by running subcuticular skin closure of 4-0 V- Lock absorbable suture. Bacitracin ointment was placed on the incision and a pressure dressing applied. I attest to the content of the Intraoperative Record and any orders documented therein. Any exceptions are noted below.
== END 2017-05-31 17:13 | DRG 242 ==
LOC: C.EDB 11:12 → C.2E 14:44 → ENRESERV 14:59
PROVIDERS: ADMIT Hospitalist; ATTEND Emergency Medicine
PROC: 02HK3JZ Insertion of Pacemaker Lead into Right Ventricle, Percutaneous Approach (ICD-10-PCS; principal; 2017-05-30 16:00)
PROC: 0JH604Z Insertion of Pacemaker, Single Chamber into Chest Subcutaneous Tissue and Fascia, Open Approach (ICD-10-PCS; principal; 2017-05-30 16:00)
DX: I48.2 Chronic atrial fibrillation (principal); I63.431 Cerebral infarction due to embolism of right posterior cerebral artery; I49.5 Sick sinus syndrome; I48.1 Persistent atrial fibrillation; I50.32 Chronic diastolic (congestive) heart failure; H35.30 Unspecified macular degeneration; Z86.73 Personal history of transient ischemic attack (TIA), and cerebral infarction without residual deficits; Z95.2 Presence of prosthetic heart valve; Z79.01 Long term (current) use of anticoagulants; H53.9 Unspecified visual disturbance; K22.70 Barrett's esophagus without dysplasia; Z85.3 Personal history of malignant neoplasm of breast; M19.90 Unspecified osteoarthritis, unspecified site; Z98.1 Arthrodesis status; Z87.891 Personal history of nicotine dependence; Z88.2 Allergy status to sulfonamides; R91.8 Other nonspecific abnormal finding of lung field; J44.9 Chronic obstructive pulmonary disease, unspecified